=== PATIENT | male | born 1955 | race African-American/Black ===

== ENCOUNTER 2021-01-23 09:16 | Inpatient (IN) | payer OTHER, SELFPAY ==
[2021-01-23] VITALS (13 sets, daily range): BP systolic 153–214; BP diastolic 89–122; PULSE 83–108; RESP 17–21; TEMP 36.2–36.8; O2SAT 97–99; BMI 29.8
--- NOTE | ~2021-01-23 | XR_ITS ---
EXAMINATION: XR chest 1V portable DATE: 01/23/2021 09:58 INDICATION: One week of shortness of breath TECHNIQUE: frontal view of the chest was obtained. COMPARISON: None FINDINGS: Mild opacities at the bilateral lung bases. Blunting at the left costophrenic angle consistent with s mall left pleural effusion. No pneumothorax. The cardiomediastinal silhouette is normal. IMPRESSION: 1. Small left pleural effusion. 2. Mild bibasilar opacities which could represent atelectasis, mild pulmonary edema or pneumonia. Reviewed, dictated and finalized at location B. OR CONSULTING MANAGER IMPRESSION: 1. Small left pleural effusion. 2. Mild bibasilar opacities which could represent atelectasis, mild pulmonary e yaz or pneumonia.
--- NOTE | 2021-01-23 09:37 | ECG_ITS ---
Measurements Intervals [place] Rate: 94 P: 52 AK: 159 QRS: -14 QRSD: 96 T: 167 QT: 384 QTc: 481 Interpretive Statements SINUS RHYTHM POSSIBLE RIGHT ATRIAL ENLARGEMENT LEFT ATRIAL ENLARGEMENT LEFT VENTRICULAR HYPERTROPHY AND ST-T CHANGE T WAVE ABNORMALITY IN ANTEROLATERAL LEADS- CONSIDER ISCHEMIA ABNORMAL ECG Electronically Signed On 01-23-2021 10:12:02 [employer] OFFICER by Waqas Crowell D.O.
--- NOTE | 2021-01-23 09:38 | ED.SOB ---
HPI - SOB/Dyspnea General Chief Complaint: Shortness of Breath/Dyspnea Stated Complaint: sob, weakness Time Seen by Provider: 01/23/21 09:28 Source: patient Mode of arrival: ambulatory Limitations: no limitations History of Present Illness HPI Narrative: This is a 65 year old male with history of PUD, hypertension who presents for evaluation of shortness of breath. He noticed that he was having increased shortness of breath 1 week ago. He states it was harder for him to walk up his driveway. Today he states he developed sensation of anxiety so he came to ER . He denies headache, dizziness, chest pain, cough, fever, nausea, vomiting or diarrhea. He has not been evaluated by a provider in several years. He was diagnosed with hypertension several years ago, but he stopped taking medications . He states he felt fine so he did not think he needed to take the medication any more. Related Data Allergies Allergy/AdvReac Type Severity Reaction Status Date / Time No Known Allergies Allergy Verified 01/23/21 13:56 Review of Systems Review of Systems: All systems reviewed & are unremarkable except as noted in HPI and below Constitutional: Constitutional: Denies chills, Denies fever(s) and Reports weakness Cardiovascular: Cardiovascular: Denies chest pain and Denies radiating jaw, neck or arm pain Respiratory: Respiratory: Denies cough and Reports dyspnea Gastrointestinal: Gastrointestinal: Denies abdominal pain, Denies diarrhea, Denies nausea and Denies vomiting Musculoskeletal: Musculoskeletal: Denies back pain Psychiatric: Psychiatric: Reports anxiety [facility] Past Medical History Medical History (Updated 01/23/21 @ 18:36 by Eleanor Littlejohn MD) Finger amputation, no complication tip of left middle finger Hypertension PUD (peptic ulcer disease) Surgical History Surgical History (Updated 01/23/21 @ 17:43 by Shauna Llanes NP) History of tonsillectomy Family History Family History (Updated 01/23/21 @ 17:46 by Shauna Llanes NP) Father Congestive heart failure Hypertension Mother Hypertension Daughter Breast cancer Daughter Hodgkins disease Social History Social History (Updated 01/23/21 @ 17:49 by Shauna Llanes NP) Social History: the patient is now smoking a half a pack a cigarettes a day. He did quit for about 2 years. He works for [employer]. He is and lives with his . His is the durable power employment attorney for healthcare. The patient initially had 4 children 1 from SIDS and a daughter from breast cancer. Patient drinks about 2 beers a night After work and then on the weekends is usually little bit more. He does not use any marijuana or illicit drugs. The patient desires to be a full code. Smoking packs per day: 0.5 Smoking cigarettes per day: 10.0 Smoking status: Current every day smoker Alcohol intake: current Drinks per week: 12 Substance use: never Gender identity (if verbalized by the patient): Male Sexual Orientation (if Verbalized by the Patient): Straight or Heterosexual Spiritual care concerns: No Exam Const: General: no acute distress and alert Orientation/consciousness: patient oriented x3 HENMT: Head: normocephalic and atraumatic Face and sinus: normal facial exam, sinuses nontender and face symmetric Mouth: Yes Normal oral and palatal mucosa present, Yes lip normal, Yes oropharynx normal and Yes moist mucous membranes Throat: posterior oropharynx normal and tonsils normal Eyes: Pupils: Equal, round and reactive pupils present EOM: EOMs intact bilaterally Chest: Chest palpation & inspection: normal inspection of the chest Resp: Effort & Inspection: normal respiratory effort and no retractions Auscultation: clear to auscultation bilaterally Cardio: Rate: regular rate Rhythm: regular rhythm Heart sounds: no murmurs GI: GI Palp: Yes Soft to palpation, No Tenderness to palpation presen
[2021-01-23 09:52] LABS: Basophils Absolute Auto 0.1 K/mm3 (0.0-0.1); Basophils Percent Auto 0.5 % (0.2-1.2); Eosinophils Percent Auto 0.1 % (0-4.4); Hematocrit 44.9 % (42.0-52.0); Hemoglobin 15.7 g/dL (14.0-18.0); Immature Granulocyte Absolute 0.05 K/mm3 (0.00-0.031); Immature Granulocyte Percent A 0.5 % (0-0.5); Lymphocytes Percent Auto 12.7 % (18.3-44.2); Mean Corpuscular Hemoglobin 32.9 pg (26-34); Mean Corpuscular Volume 94.1 fl (80-100); Mean Platelet Volume 9.7 fl (7.4-10.4); Monocytes Absolute Auto 0.9 K/mm3 (0.1-0.6); Monocytes Percent Auto 8.9 % (2.6-8.5); Neutrophils Absolute Auto 7.9 K/mm3 (1.3-6.7); Neutrophils Percent Auto 77.3 % (45.5-73.1); Platelet Count Result 329 k/mm3 (150-375); Red Blood Count 4.77 M/mm3 (4.6-6.20); Red Cell Distribution Width 12.7 % (11.5-14.5); White Blood Count 10.2 K/mm3 (4.5-10.0)
[2021-01-23 10:03] LABS: INR 0.9; Prothrombin Time 12.8 Seconds (11.1-14.7)
[2021-01-23 10:04] LABS: Anion Gap 7 mmol/L (8-16); Blood Urea Nitrogen 17 mg/dL (9-20); Calcium 9.3 mg/dL (8.4-10.2); Carbon Dioxide 27 mmol/L (22-30); Chloride 106 mmol/L (98-107); Estimated CRCL calculation 83 ml/min; Estimated Glomerular Filt Rate > 60; Glucose 133 mg/dL (75-110); Potassium 3.9 mmol/L (3.4-5.0); Sodium 140 mmol/L (137-145)
[2021-01-23 10:16] LABS: NT Pro B Type Natriuretic Pept 1010 PG/ML (5-100); Troponin I 0.031 ng/mL (0.000-0.034)
[2021-01-23] MEDS: FUROSEMIDE INJ 40 MG/4 ML VIAL IV PUSH ×2 (10:33→20:54)
[2021-01-23] MEDS: hydrALAZINE HCL 20 MG/ML VIAL 10 MG IV PUSH ×2 (10:35→18:39)
[2021-01-23] MEDS: NITROGLYCERIN OINTMENT 1 INCH DOSE TRANSDERM ×2 (10:39→17:25)
[2021-01-23] MEDS: ENALAPRILAT 1.25 MG/ML VIAL IV PUSH (11:20)
--- NOTE | 2021-01-23 13:31 | PM.IMHP ---
H&P: HPI History of Present Illness Date/Time: 01/23/21 13:31 Narrative: Percy Kumar is a 65 year old male [facility] Past Medical History Medical History (Updated 01/23/21 @ 09:40 by Eleanor Littlejohn MD) Hypertension PUD (peptic ulcer disease) Social History Social History (Updated 01/23/21 @ 09:39 by Eleanor Littlejohn MD) Smoking packs per day: 0.5 Smoking cigarettes per day: 10.0 Smoking status: Current every day smoker Alcohol intake: current Substance use: never Gender identity (if verbalized by the patient): Male Sexual Orientation (if Verbalized by the Patient): Straight or Heterosexual Meds Home Medications and Allergies Allergies Allergy/AdvReac Type Severity Reaction Status Date / Time No Known Allergies Allergy Verified 06/05/15 10:10 Vital Signs Vital Signs - 24 hr 01/23/21 09:32 01/23/21 09:36 01/23/21 10:19 Temperature 98.2 F Pulse Rate 108 H 102 H 83 Respiratory Rate 18 19 Blood Pressure 214/122 H 186/118 H Pulse Oximetry 99 97 01/23/21 11:18 01/23/21 11:38 01/23/21 12:50 Temperature Pulse Rate 92 84 92 Respiratory Rate 18 17 18 Blood Pressure 195/108 H 163/94 H 159/105 H Pulse Oximetry 98 98 98 01/23/21 12:52 Temperature Pulse Rate 88 Respiratory Rate 19 Blood Pressure 159/105 H Pulse Oximetry 98 H&P: Results Labs Labs: Short CBC 01/23/21 Range/Units 09:42 WBC 10.2 H (4.5-10.0) K/mm3 Hgb 15.7 (14.0-18.0) g/dL Hct 44.9 (42.0-52.0) % Plt Count 329 (150-375) k/mm3 BMP 01/23/21 09:42 Sodium 140 Potassium 3.9 Chloride 106 Carbon Dioxide 27 BUN 17 Creatinine 0.90 Glucose 133 H Calcium 9.3 Cardiac Enzymes 01/23/21 Range/Units 09:42 Troponin I 0.031 (0.000-0.034) ng/mL
--- NOTE | 2021-01-23 13:55 | ADMGEN ---
This patient, Percy Kumar, was admitted to Medical Room 251-. Patient/family oriented to hospital policies and general routines including ID bracelet, bed and alarms, visiting hours, pain management, procedures, bathroom and other care routines, personal items, smoking policy, room service/diet, and visiting hours. Information on how to activate the Rapid Response Team has been discussed. Patient/Family are encouraged to report perceived risks to care and to ask questions if they do not understand what they are told or what they should do.
--- NOTE | 2021-01-23 17:26 | PM.IMHP ---
H&P: HPI History of Present Illness Date/Time: 01/23/21 17:26 Chief Complaint: Shortness of breath Narrative: Percy Kumar is a 65 year old male who stated that he used to take blood pressure medicine several years ago but then got off of it because he had lost weight was very active. The patient does not monitor his blood pressure nor does he take any blood pressure medications at this time. The patient stated that he has put on some weight since covid 19 pandemic. The patient stated he is not as active as when he typically would be prior to COVID-19. The patient stated that he has been very anxious about COVID-19. His has COPD and he has nervous about bringing COVID home to his . The patient still continues to smoke a half pack a cigarettes a day. He had quit for a couple years and then picked it back up. He has received smoking cessation information. The patient noticed that he has been getting more short of breath recently. He stated that the last few days he noticed that he was short of breath walking up the hill to get to his car. He also noticed that when he goes to work is a little more short of breath with activity. He stated that he was in a grocery store and became anxious and could not breathe and is mask. Otherwise he is able to lay flat. He does not have any history of any congestive heart failure. Chest x-ray was read as small left pleural effusion. Mild bibasilar opacities which could represent atelectasis, mild pulmonary edema or pneumonia. The patient was given IV Lasix and nitroglycerin patch in the emergency room. He was also given Apresoline and basal tech for his high blood pressure. His initial blood pressure was 214/122. It is now 157/98. An echo has been ordered for tomorrow. Patient is being admitted for observation status on the date of service of 01/23/2021 Review of Systems Review of Systems: All systems reviewed & are unremarkable except as noted in HPI and below Constitutional: Constitutional: Reports as per HPI and Reports no additional constitutional complaints Eyes: Eyes: Reports as per HPI and Reports no additional eye complaints ENT: Reports system reviewed and no additional complaints, except as documented and Reports Normal hearing present Cardiovascular: Cardiovascular: Reports no additional cardiovascular complaints Respiratory: Respiratory: Reports no additional respiratory complaints and Reports no additional respiratory complaints Gastrointestinal: Gastrointestinal: Reports as per HPI and Reports no additional gastrointestinal complaints Musculoskeletal: Musculoskeletal: Reports no additional musculoskeletal complaints Integumentary/Breasts: Skin/Breast: Reports system reviewed and no additional complaints, except as docu and Reports as per HPI Neurologic: Reports system reviewed and no additional complaints, except as documented, Reports as per HPI and Reports Normal hearing present Psychiatric: Psychiatric: Reports no additional psychiatric complaints and Reports as per HPI Endocrine: Endocrine: Reports no additional endocrine complaints Hematologic/Lymphatic: Hematologic/Lymphatic: Reports no additional hematologic/lymphatic complaints Allergic/Immunologic: Allergic/Immunologic: Reports no additional allergic/immunologic complaints [facility] Past Medical History Medical History (Updated 01/23/21 @ 17:56 by Shauna Llanes NP) Finger amputation, no complication tip of left middle finger Hypertension PUD (peptic ulcer disease) Surgical History Surgical History (Updated 01/23/21 @ 17:43 by Shauna Llanes NP) History of tonsillectomy Family History Family History (Updated 01/23/21 @ 17:46 by Shauna Llanes NP) Father Congestive heart failure Hypertension Mother Hypertension Daughter Breast cancer Daughter Hodgkins disease Social History Social History (Updated 01/23/21 @ 17:49 by Shauna Llanes NP) Social History: the patient
[2021-01-23] MEDS: ENOXAPARIN 40 MG/0.4 ML SYRINGE SUB-Q (20:54)
[2021-01-24] VITALS (11 sets, daily range): BP systolic 126–134; BP diastolic 81–99; PULSE 78–103; RESP 20–21; TEMP 36.4–36.9; O2SAT 99–100
[2021-01-24] MEDS: NITROGLYCERIN OINTMENT 1 INCH DOSE TRANSDERM ×5 (00:18→23:38)
[2021-01-24 05:51] LABS: Basophils Percent Auto 0.5 % (0.2-1.2); Eosinophils Absolute Auto 0.1 K/mm3 (0-0.3); Hematocrit 44.1 % (42.0-52.0); Immature Granulocyte Absolute 0.04 K/mm3 (0.00-0.031); Immature Granulocyte Percent A 0.5 % (0-0.5); Lymphocytes Absolute Auto 1.87 K/mm3 (0.9-3.2); Lymphocytes Percent Auto 21.4 % (18.3-44.2); Mean Corpuscular Hemoglobin 32.5 pg (26-34); Mean Corpuscular Volume 95.5 fl (80-100); Mean Platelet Volume 9.8 fl (7.4-10.4); Monocytes Absolute Auto 1.2 K/mm3 (0.1-0.6); Monocytes Percent Auto 14.1 % (2.6-8.5); Neutrophils Absolute Auto 5.5 K/mm3 (1.3-6.7); Neutrophils Percent Auto 62.5 % (45.5-73.1); Platelet Count Result 310 k/mm3 (150-375); Red Blood Count 4.62 M/mm3 (4.6-6.20); Red Cell Distribution Width 12.9 % (11.5-14.5); White Blood Count 8.8 K/mm3 (4.5-10.0)
--- NOTE | 2021-01-24 06:00 | ECHO_ITS ---
Patient Info Name: Percy Kumar Age: 65 years : 1955 Gender: Male Ht: 73 in Wt: 226 lbs BSA: 2.32 m2 HR: 80 bpm BP: 163 / 89 mmHg Technical Quality: Good Exam Date: 01/24/2021 1:50 PM Exam Location: [facility] Patient Status: Outpatient Admit Date: 01/23/2021 Staff Ordering Physician: Eleanor Littlejohn MD Information Resources Director: Amna Kidd RDCS Attending Provider: Yeni Glaser PA-C Referring Physician: Annetta KNIGHT; Exam Type: CA echo doppler color flow Study Info Indications - chf steel Complete two-dimensional, color flow and Doppler transthoracic echocardiogram is performed. Summary 1. Complete two-dimensional, color flow and Doppler transthoracic echocardiogram is performed. 2. Left ventricular chamber dimension is moderately enlarged. 3. Left ventricular systolic function is moderately reduced, estimated at 35-40%. 4. There is moderately increased left ventricular wall thickness. 5. The left ventricular diastolic function is grade I diastolic dysfunction. 6. E/e' 19 is elevated. 7. Global longitudinal strain is abnormal at -9.4%. 8. Left atrial chamber dimension is moderately enlarged. 9. There is mild aortic valve sclerosis. 10. No pulmonary hypertension, estimated pulmonary arterial systolic pressure is 23 mmHg. 11. There is trace pulmonic regurgitation. Left Ventricle E/e' 19 is elevated. Global longitudinal strain is abnormal at -9.4%. Left ventricular chamber dimension is moderately enlarged. Left ventricular systolic function is moderately reduced, estimated at 35-40%. There is moderately increased left ventricular wall thickness. The left ventricular diastolic function is grade I diastolic dysfunction. Right Ventricle Right ventricular chamber dimension is normal. Right ventricular systolic function is normal. Left Atria Left atrial chamber dimension is moderately enlarged. Right Atria Right atrial chamber dimension is normal. Aortic Valve The aortic valve is trileaflet. There is mild aortic valve sclerosis. There is no aortic valve stenosis. There is no aortic valve regurgitation. Pulmonic Valve There is trace pulmonic regurgitation. Mitral Valve There is no mitral valve stenosis. There is no mitral valve regurgitation. Tricuspid Valve There is no tricuspid valve regurgitation. No pulmonary hypertension, estimated pulmonary arterial systolic pressure is 23 mmHg. Pericardium/Pleural There is no pericardial effusion. Inferior Vena Cava Normal inferior vena cava with >50% collapse upon inspiration consistent with normal right atrial pressure, 5 mmHg. Aorta The aortic root size at the sinus of Valsalva is normal. Left Ventricular Outflow Tract Name Value Normal LVOT 2D LVOT Diameter 2.2 cm LVOT Doppler LVOT Peak Gradient 5 mmHg LVOT Mean Gradient 3 mmHg LVOT VTI 19 cm LVOT VTI/AV VTI Ratio 0.8 LVOT Stroke Volume 70 ml LVOT CO 17.7 l/min
[2021-01-24 06:04] LABS: Alanine Aminotransferase 17 U/L (4-50); Alkaline Phosphatase 45 U/L (38-126); Anion Gap 5 mmol/L (8-16); Aspartate Amino Transferase 22 U/L (17-59); Bilirubin,Total 1.6 mg/dL (0.2-1.3); Blood Urea Nitrogen 18 mg/dL (9-20); Calcium 8.6 mg/dL (8.4-10.2); Carbon Dioxide 31 mmol/L (22-30); Chloride 101 mmol/L (98-107); Cholesterol 199 mg/dL (0-200); Estimated CRCL calculation 64 ml/min; Estimated Glomerular Filt Rate > 60; Glucose 133 mg/dL (75-110); HDL Direct 62 mg/dL; Magnesium 2.1 mg/dL (1.6-2.3); Potassium 3.9 mmol/L (3.4-5.0); Sodium 137 mmol/L (137-145); Triglycerides 84 mg/dL (<150)
[2021-01-24 06:15] LABS: LDL Cholesterol Direct 100 mg/dL
[2021-01-24] MEDS: LOSARTAN POTASSIUM 25 MG TABLET PO (08:23)
[2021-01-24] MEDS: FUROSEMIDE INJ 40 MG/4 ML VIAL IV PUSH ×2 (08:23→20:03)
--- NOTE | 2021-01-24 12:53 | PM.IMPN ---
Progress Note: A&P Assessment and Plan (1) Abnormal EKG: Code(s): R94.31 - Abnormal electrocardiogram [ECG] [EKG] Status: Acute Assessment and Plan: Patient's troponin was normal on arrival at 0.031. There were no repeat troponins at 3 or 6 hours. He does have EKG changes on arrival with a heart rate of 94 beats per minute, sinus rhythm, possible right and left atrial large min, LV hypertrophy and some ST T-wave changes in anterior lateral leads. Telemetry shows a normal sinus rhythm, no alarms noted, there is widening of the QRS. Will order a troponin at this time Will consult cardiology for further evaluation and workup. Concerns a has not seen a doctor in years is not on any medications. He states his dad had coronary artery disease the past. He has also been given nitro paste from the emergency room. Continue monitoring. Denies any chest pain at this time. (2) Pulmonary edema: Code(s): J81.1 - Chronic pulmonary edema Status: Acute Assessment and Plan: Patient came in with worsening dyspnea on exertion with walking up a hill as well as orthopnea. Chest x-ray shows some pulmonary edema. His BNP was elevated at 1010. He was started on IV Lasix with improvement of his symptoms today. Echocardiogram has been ordered and is pending Will continue monitoring volume status, electrolytes, renal function with diuresis. (3) Hypertension: Code(s): I10 - Essential (primary) hypertension Status: Chronic Assessment and Plan: Patient's blood pressure was elevated on arrival he was started on losartan. Blood pressure this morning was 126/86. Continue with some diuresis, Patient has p.r.n. hydralazine. Continue monitoring. Make adjustments as needed. Cardiology's recommendations are greatly appreciated. (4) Anxiety: Code(s): F41.9 - Anxiety disorder, unspecified Status: Acute Assessment and Plan: Appears comfortable at this time. P.rdoron Mims. Time Spent With Patient Time with patient: 25 - 35 minutes Subjective Date/time seen: 01/24/21 12:53 Interval history: Date of service 01/24/2021: Patient is a 65-year-old man who is not on any medications chronically, and he was not seen a primary care provider in years. A few weeks ago he noticed worsening dyspnea on exertion with walking up a hill to get to his car and laying flat in bed. He denies any chest pain associated. He is feeling better today after receiving IV Lasix. He denies any shortness of breath with walking around his room today. He does not believe he has had COVID-19 or any recent viral illnesses. He is smoker of about half a pack a day or less. He denies any chest pain, shortness of breath, cough, fevers, chills, nausea, vomiting, abdominal pain, leg swelling, calf pain, or any other symptoms at this time. Review of Systems Review of Systems: All systems reviewed & are unremarkable except as noted in HPI and below Exam Narrative: Exam Narrative: General: 65-year-old man sitting up in bed, talking on the phone. Appears comfortable. In no acute distress. Skin: No jaundice or cyanosis. Good skin turgor. Neck: Full range of motion. Supple. Respiratory: Lungs are clear to auscultation bilaterally, no wheezing, rales or rhonchi. No bony chest wall tenderness. Cardiovascular: The heart has a regular rate and rhythm without murmur. Telemetry shows normal sinus rhythm with a heart rate of 70 beats per minute. There is QRS widening noted. No alarms noted. Lower extremities: No lower extremity edema. Distal pulses are easily palpated. No calf tenderness to palpation. Gastrointestinal: The abdomen is soft, nontender and nondistended with active bowel sounds. Psychiatric: Lucid and oriented. Memory
--- NOTE | 2021-01-24 14:55 | PM.CNCAR ---
Assessment and Plan Assessment and plan (1) Acute combined systolic and diastolic CHF, NYHA class 1: Code(s): I50.41 - Acute combined systolic (congestive) and diastolic (congestive) heart failure Status: Acute Assessment and Plan: Acute systolic and diastolic CHF with cardiomyopathy, EF 35-40%, secondary to uncontrolled and longstanding hypertension. Continue losartan, add metoprolol succinate (try to keep meds once daily for compliance). Outpatient stress test to rule out underlying CAD which is not likely. (2) Hypertensive urgency: Code(s): I16.0 - Hypertensive urgency Status: Acute Assessment and Plan: Educated the patient is about hypertension, longstanding affects on organs, congestive heart failure, low sodium and heart healthy diet, medication management, etc.. Likely the patient will need combination therapy such as losartan /HCT 50/25 mg and metoprolol succinate Hopefully he will be in shape for discharge tomorrow. (3) Abnormal EKG: Code(s): R94.31 - Abnormal electrocardiogram [ECG] [EKG] Status: Acute Assessment and Plan: EKG shows changes with LVH and lateral T-wave inversion. I think these changes are most likely all due to hypertension and not CAD or ACS. However because of his left ventricular dysfunction he would benefit from ischemia evaluation as an outpatient. (4) Elevated troponin: Code(s): R77.8 - Other specified abnormalities of plasma proteins Status: Acute Assessment and Plan: Very mildly elevated troponin secondary to uncontrolled hypertension and CHF. No evidence of acute coronary syndrome. Will discontinue nitro paste and metoprolol succinate. History of Present Illness History of Present Illness Consult date/time: 01/24/21 14:55 Consult reason: hypertension and shortness of breath Reason For Visit: CHF, malignant hypertension Narrative: Date of service 01/24/2021 Percy Sutherland is a 65-year-old male with untreated hypertension whom I was asked to see at the request of hospitalist for my advice and opinion regarding shortness of breath, elevated troponins, hypertension and CHF in consultation. Mr. Schumacher has been experiencing BAINS for the last two weeks, has developed some orthopnea. Last night when he was feeling his worst he had some tightness in his chest and could not get comfortable. in the emergency room his blood pressure was 214/122 mm Hg and BNP was 1000. Troponin was 0.03. He was diagnosed with hypertension several years ago postop taking his medication as he felt fine. He said he was stubborn. In the emergency room his given furosemide IV push, hydralazine 10 mg IV push, enalaprat 1.25 mg IV push and started on nitropaste. Losartan has been added and now his blood pressure has improved. He is feeling better, with no shortness of breath getting up in his room. No history of diabetes, hyperlipidemia, heart disease, kidney disease or stroke. No edema. Review of Systems Constitutional: Constitutional: Reports lethargy Eyes: Eyes: Reports no additional eye complaints ENT: Reports nasal congestion Comments: Patient -leaflet his shortness of breath his sinus problems. Cardiovascular: Cardiovascular: Reports chest pain, Denies pedal edema and Denies leg edema Respiratory: Respiratory: Reports dyspnea and Reports dyspnea on exertion Comments: Orthopnea Gastrointestinal: Gastrointestinal: Denies abdominal pain, Denies melena and Denies hematochezi
[2021-01-24] MEDS: FLUTICASONE PROPIONATE 0.05% NA SPR 16 GM BTL (*BKC) 1 SPRAY NASAL (20:03)
[2021-01-24] MEDS: ENOXAPARIN 40 MG/0.4 ML SYRINGE SUB-Q (20:03)
[2021-01-25] VITALS (8 sets, daily range): BP systolic 128–130; BP diastolic 75–83; PULSE 78–92; RESP 18–20; TEMP 36.2–36.8; O2SAT 98–100
[2021-01-25] MEDS: NITROGLYCERIN OINTMENT 1 INCH DOSE TRANSDERM (06:05)
[2021-01-25] MEDS: METOPROLOL SUCCINATE EXT REL 25 MG TABCR PO (08:54)
[2021-01-25] MEDS: FLUTICASONE PROPIONATE 0.05% NA SPR 16 GM BTL (*BKC) 1 SPRAY NASAL (08:54)
[2021-01-25] MEDS: FUROSEMIDE INJ 40 MG/4 ML VIAL IV PUSH (08:54)
[2021-01-25] MEDS: LOSARTAN POTASSIUM 25 MG TABLET PO (08:54)
[2021-01-25 10:14] LABS: Anion Gap 7 mmol/L (8-16); Blood Urea Nitrogen 23 mg/dL (9-20); Carbon Dioxide 29 mmol/L (22-30); Chloride 101 mmol/L (98-107); Estimated CRCL calculation 75 ml/min; Estimated Glomerular Filt Rate > 60; Glucose 108 mg/dL (75-110); Magnesium 2.2 mg/dL (1.6-2.3); Sodium 137 mmol/L (137-145)
--- NOTE | 2021-01-25 15:43 | PM.PNCARD ---
Progress Note: A&P Assessment and Plan (1) Acute combined systolic and diastolic CHF, NYHA class 1: Code(s): I50.41 - Acute combined systolic (congestive) and diastolic (congestive) heart failure Status: Acute Assessment and Plan: New onset of systolic and diastolic heart failure due to uncontrolled hypertension. Significant improvement overnight with diuresis and better blood pressure control. Reviewed effects of hypertension on our heart and our bodies. Discussed blood pressure control, medications, low salt heart healthy diet cetera. Okay for discharge. Recommend another week of Lasix since he still has some volume overload, but in the long run hopefully losartan HCT and metoprolol succinate will be adequate. Discussed w/ PA Yoel Glaser. Recommend outpatient follow-up for CHF and cardiomyopathy which my office will provide. Follow-up with Dr. López as well. (2) Hypertensive urgency: Code(s): I16.0 - Hypertensive urgency Status: Acute Assessment and Plan: Patient's blood pressure has not been treated for years and was very high on admission. Significant improvement overnight on fairly mild therapy. (3) Cardiomyopathy: Code(s): I42.9 - Cardiomyopathy, unspecified Status: Acute Assessment and Plan: Found have a cardiomyopathy with EF of 35-40%, probably due to hypertension, but rule out underlying CAD. My office will schedule a Lexiscan stress test as an outpatient. (4) Elevated troponin: Code(s): R77.8 - Other specified abnormalities of plasma proteins Status: Acute Assessment and Plan: Very minimally elevated troponin, secondary to hypertension and heart failure. Subjective Date/time seen: 01/25/21 15:43 Interval history: Follow-up for hypertension and new onset of heart failure. Date of service 01/24/2021: Patient diuresed overnight and is feeling much better. No PND orthopnea. No BAINS when up and about in his room. Blood pressure is much better as well. Echo as below, showed a cardiomyopathy EF 35-40%. Review of Systems Constitutional: Constitutional: Denies fatigue and Denies weakness ENT: Denies epistaxis Cardiovascular: Cardiovascular: Denies chest pain, Denies pedal edema, Denies leg edema and Denies lightheadedness Respiratory: Respiratory: Denies cough, Denies dyspnea and Denies dyspnea on exertion Gastrointestinal: Gastrointestinal: Denies abdominal pain Genitourinary: Genitourinary: Denies hematuria Musculoskeletal: Musculoskeletal: Reports no additional musculoskeletal complaints Integumentary/Breasts: Skin/Breast: Denies rash Neurologic: Denies Abnormal speech present and Denies confusion Psychiatric: Psychiatric: Reports no additional psychiatric complaints Exam Narrative: Exam Narrative: Up in chair, at the bedside, no distress Const: General: no acute distress HENMT: General nose exam: no epistaxis Mouth: Yes moist mucous membranes Eyes: EOM: EOMs intact bilaterally Neck: Neck: supple Resp: Effort & Inspection: normal respiratory effort Auscultation: rales (Rales in lower both lung del real) Cardio: Rate: regular rate Rhythm: regular rhythm Heart sounds: no gallops and no murmurs GI: GI Palp: Yes Soft to palpation Neuro: Cognition (Neuro): normal cognition Speech: normal speech Motor exam (neuro): Normal motor muscle tone present throughout Extrem: General: no edema Psych: Mental Status: mental status grossly normal Affect: normal affect Objective Data Vital Signs Vital Signs: Vital Signs - 24 hr 01/24/21 16:00 01/24/21 17:10 01/24/21 18:03 Temperature 98.4 F Pulse Rate 84 83 Respiratory Rate 21 H Blood Pressure 129/99 H 130/82 Pulse Oximetry 100 01/24/21 20:00 01/24/21 21:54 01/24/21 22:00 Temperature 97.5 F L Pulse Rate 81
--- NOTE | 2021-01-25 16:15 | PM.DS ---
DS: Admitting Diagnosis Admitting Diagnosis Admitting Diagnosis: SOB DS: Discharge Diagnosis Discharge Diagnosis (1) Acute combined systolic and diastolic CHF, NYHA class 1: Code(s): I50.41 - Acute combined systolic (congestive) and diastolic (congestive) heart failure Status: Acute (2) Cardiomyopathy: Code(s): I42.9 - Cardiomyopathy, unspecified Status: Acute (3) Hypertensive urgency: Code(s): I16.0 - Hypertensive urgency Status: Acute (4) Abnormal EKG: Code(s): R94.31 - Abnormal electrocardiogram [ECG] [EKG] Status: Acute (5) Anxiety: Code(s): F41.9 - Anxiety disorder, unspecified Status: Acute DS: Summary Hospital Course Reason for hospitalization: 65-year-old man with no chronic medical history and is not on any chronic medications because he has not seen a doctor in years, who presented to the emergency department with increased shortness of breath. Patient reports he would have shortness of breath with walking up hill and orthopnea which is been going on the last few weeks. Initial vitals showed afebrile, tachycardic heart rate, normal respiratory rate, elevated blood pressure at 214/122, normal oxygen saturation 99% on room air. Initial labs showed slight leukocytosis, normal coag panel, normal BMP other than slight elevation of glucose at 133, BNP was 1010, troponin was 0.031 which is normal and repeat troponin was less, normal TSH, chest x-ray showed small left pleural effusion and mild pulmonary edema. Patient was admitted into the hospital And started on IV Lasix. Echocardiogram was completed showing systolic dysfunction with an EF of 35-40%, moderately enlarged LV chamber and LVH. Mild . Cardiology was consulted on the case and started him on a beta-denise, ARB. Cardiology believes he did not have signs of acute ACS and recommended following up as an outpatient with a stress test. Fasting lipid panel was ordered showing LDL at 100, otherwise normal lipids. Since he still had some signs of fluid overload he was started on Lasix 20 mg daily. He will follow-up with his 's primary care provider at discharge. Patient otherwise feels well at this time and stable for discharge. Hospital Course: See above Status at Discharge Cognitive/behavioral status at discharge: Stable, improved. Time Spent with Patient Time attestation: Total time spent providing and/or coordinating discharge services: 43 Time spent: Greater than 30 minutes Exam Narrative: Exam Narrative: General: 65-year-old man sitting up in the chair talking to his . Appears comfortable. In no acute distress. Skin: No jaundice or cyanosis. Good skin turgor. Neck: Full range of motion. Supple. Respiratory: Lungs are clear to auscultation bilaterally, no wheezing, rales or rhonchi. No bony chest wall tenderness. Cardiovascular: The heart has a regular rate and rhythm without murmur. Telemetry shows normal sinus rhythm with a heart rate of 83 beats per minute. There is QRS widening noted. No alarms noted. Lower extremities: No lower extremity edema. Distal pulses are easily palpated. No calf tenderness to palpation. Gastrointestinal: The abdomen is soft, nontender and nondistended with active bowel sounds. Psychiatric: Lucid and oriented. Memory intact. Neurologic: No focal deficits. Speech is clear. No facial drooping. DS: Data Data Completed and Pending Labs on day of discharge: Labs from last 24 hours 01/25/21 09:33 Sodium 137 Potassium 4.0 Chloride 101 Carbon Dioxide 29 Anion Gap 7 L BUN 23 H Creatinine 1.00 Estim Creat Clear Calc 75 Estimated GFR > 60 Glucose 108 Calcium 9.0 Magnesium 2.2 Discharge Plan Discharge Attending physician on discharge: Shirley Argueta Consulting providers: Arabella Alaniz Discharging Clinician: Yeni Glaser Anticipated Discharge Date/Time: 01/25
== END 2021-01-25 16:50 | disposition home or self-care (01) | DRG 304 ==
LOC: ANHED 10:56 → ANH2MED 11:56
PROVIDERS: Nurse Practitioner; Physician Assistant; Admitting Provider Family Medicine; Emergency Provider General Practice; PCP Internal Medicine; Visit Provider Family Medicine
DX: I16.0 Hypertensive urgency (principal); I50.41 Acute combined systolic (congestive) and diastolic (congestive) heart failure; I42.9 Cardiomyopathy, unspecified; I11.0 Hypertensive heart disease with heart failure; R94.31 Abnormal electrocardiogram [ECG] [EKG]; R77.8 Other specified abnormalities of plasma proteins; F41.9 Anxiety disorder, unspecified; F17.210 Nicotine dependence, cigarettes, uncomplicated; Z87.11 Personal history of peptic ulcer disease
CPT/HCPCS: 36415; 71045; 80048; 80053; 80061; 83735; 83880; 84443; 84484; 85025; 85610; 85730; 93005; 93306; 96372; 96374; 96375; 96376; 99291; A9270; G0378; J0360; J1650; J1940

== ENCOUNTER 2021-01-26 21:06 | Emergency (ER) | payer OTHER, SELFPAY ==
[2021-01-26 21:27] VITALS: BP 165/121; PULSE 105; RESP 22; TEMP 36.3; O2SAT 99
[2021-01-27 01:13] VITALS: BP 209/148; PULSE 76; RESP 16; O2SAT 100
--- NOTE | 2021-01-27 01:31 | ED.GENADULT ---
HPI - General Adult General Chief complaint: Unspecified Stated complaint: high blood pressure Time Seen by Provider: 01/27/21 00:17 History of Present Illness HPI narrative: Patient is a 65-year-old male who presents ER with concerns of hypertension. Recently hospitalized for heart failure and uncontrolled hypertension. He has been started on losartan, furosemide, and metoprolol. He was just released and took his first doses today. He reports he is supposed to take his blood pressure 3 times but took it 6 times. His blood pressures been running in the 160s and 170s systolic. His diastolic continues to remain above 100 mmHg. He is having no chest pain or shortness of breath or headache with visual changes. Reports he got anxious and came to the ER to make sure there is nothing more seriously wrong. Related Data Allergies Allergy/AdvReac Type Severity Reaction Status Date / Time No Known Allergies Allergy Verified 01/23/21 13:56 Review of Systems Cardiovascular: Cardiovascular: Denies chest pain, Denies rapid heart rate and Denies dyspnea on exertion Respiratory: Respiratory: Denies cough and Denies dyspnea Neurologic: Denies headache(s) [facility] Past Medical History Medical History (Updated 01/27/21 @ 01:40 by Mj Marx MD) Cardiomyopathy Finger amputation, no complication tip of left middle finger Hypertension PUD (peptic ulcer disease) Surgical History Surgical History History of tonsillectomy Family History Family History (Updated 01/24/21 @ 16:18 by Arabella Alaniz MD) Father Congestive heart failure Hypertension Mother Hypertension Heart disease Daughter Breast cancer Daughter Hodgkins disease Social History Social History (Updated 01/23/21 @ 17:49 by Shauna Llanes NP) Social History: the patient is now smoking a half a pack a cigarettes a day. He did quit for about 2 years. He works for [employer]. He is and lives with his . His is the durable power county attorney for healthcare. The patient initially had 4 children 1 from SIDS and a daughter from breast cancer. Patient drinks about 2 beers a night After work and then on the weekends is usually little bit more. He does not use any marijuana or illicit drugs. The patient desires to be a full code. Smoking packs per day: 0.5 Smoking cigarettes per day: 10.0 Smoking status: Current every day smoker Alcohol intake: current Drinks per week: 12 Substance use: never Gender identity (if verbalized by the patient): Male Spiritual care concerns: No Exam Narrative: Exam Narrative: GENERAL: Well-appearing, well-nourished, and in no acute distress. HEAD: Normocephalic, atraumatic. CHEST: Clear to auscultation. No respiratory distress. HEART: Regular rate and rhythm. Normal peripheral pulses EXTREMITIES: Normal range of motion. No edema. NEURO: Alert and oriented x3. PSYCH: Normal mood and affect. Course Course Emergency Course: Gave patient reassurance regarding blood pressure. It is come down nicely on its own. Patient verbalized understanding. Vital Signs Vital signs: Vital Signs Temperature 97.3 F L 01/26/21 21:27 Pulse Rate 105 H 01/26/21 21:27 Respiratory Rate 22 H 01/26/21 21:27 Blood Pressure 165/121 H 01/26/21 21:27 Pulse Oximetry 99 01/26/21 21:27 Temperature 97.3 F L 01/26/21 21:27 Pulse Rate 72 01/27/21 01:32 Respiratory Rate 16 01/27/21 01:32 Blood Pressure 154/111 H 01/27/21 01:32 Pulse Oximetry 99 01/27/21 01:32 Medical Decision Making Vital Signs Vital Signs: Vital Signs Temperature 97.3 F L 01/26/21 21:27 Pulse Rate 105 H 01/26/21 21:27 Respiratory Rate 22 H 01/26/21 21:27 Blood Pressure 165/121 H 01/26/21 21:27 Pulse Oximetry 99 01/26/21 21:27 Temperature 97.3 F L 01/26/21 21:27 Pulse Rate 72 01/27/21 01:32 Respiratory Rate 1
[2021-01-27 01:32] VITALS: BP 154/111; PULSE 72; RESP 16; O2SAT 99
== END 2021-01-27 01:43 | disposition home or self-care (01) ==
PROVIDERS: Emergency Provider Emergency Medicine; PCP Internal Medicine
DX: I10 Essential (primary) hypertension (principal); I42.9 Cardiomyopathy, unspecified; Z87.11 Personal history of peptic ulcer disease; F17.210 Nicotine dependence, cigarettes, uncomplicated
CPT/HCPCS: 99281

== ENCOUNTER 2021-02-09 12:22 | Outpatient (CLI) | payer OTHER, SELFPAY ==
[2021-02-09 12:46] LABS: Add Urine Microscopic? NO; Appearance Urine Clear (Clear); Bilirubin Urine Negative (Negative); Blood Urine Negative (Negative); Color Urine Yellow (Yellow); Glucose Urine UA Negative (Negative); Ketones Urine Negative (Negative); Leukocyte Esterase Ur Negative LEU/UL (NEGATIVE); Nitrate Urine Negative (Negative); Protein Urine Negative (Negative); Specific Grav Ur 1.013 (1.001-1.035); Urobilinogen Urine Negative mg/dL (<2.0)
[2021-02-09 13:01] LABS: Anion Gap 5 mmol/L (8-16); Blood Urea Nitrogen 16 mg/dL (9-20); Calcium 9.4 mg/dL (8.4-10.2); Carbon Dioxide 31 mmol/L (22-30); Chloride 103 mmol/L (98-107); Estimated Glomerular Filt Rate > 60; Glucose 113 mg/dL (75-110); Potassium 4.1 mmol/L (3.4-5.0); Sodium 139 mmol/L (137-145)
== END 2021-02-09 12:23 | disposition home or self-care (01) ==
PROVIDERS: PCP Internal Medicine; Visit Provider Internal Medicine
DX: I50.41 Acute combined systolic (congestive) and diastolic (congestive) heart failure (principal); I10 Essential (primary) hypertension
CPT/HCPCS: 36415; 80048; 81003

== ENCOUNTER 2021-02-16 13:17 | Outpatient (CLI) | payer OTHER, SELFPAY ==
[2021-02-16 13:58] LABS: Anion Gap 8 mmol/L (8-16); Blood Urea Nitrogen 17 mg/dL (9-20); Calcium 9.7 mg/dL (8.4-10.2); Carbon Dioxide 29 mmol/L (22-30); Chloride 102 mmol/L (98-107); Estimated Glomerular Filt Rate > 60; Glucose 110 mg/dL (75-110); Potassium 4.2 mmol/L (3.4-5.0); Sodium 139 mmol/L (137-145)
== END 2021-02-16 13:18 | disposition home or self-care (01) ==
LOC: ANHLAB 13:19
PROVIDERS: PCP Internal Medicine; Visit Provider Nurse Practitioner Adult Health
DX: I11.0 Hypertensive heart disease with heart failure (principal); I50.22 Chronic systolic (congestive) heart failure
CPT/HCPCS: 36415; 80048

== ENCOUNTER 2021-03-08 06:57 | Outpatient (CLI) | payer OTHER, SELFPAY ==
--- NOTE | ~2021-03-08 | US_ITS ---
EXAMINATION: US renal BI, US retroperitoneal duplex ltd DATE: 03/08/2021 07:59 INDICATION: Essential hypertension TECHNIQUE: Multiple grayscale and Doppler ultrasound images of the kidneys were obtained. COMPARISON: None. FINDINGS: The right kidney measures 10.8 x 5.6 x 4.6 cm. The left kidney measures 12.7 x 5.9 x 7.1 cm . The kidneys demonstrate normal parenchymal echogenicity. There is no hydronephrosis. The bladder is normal. The aorta peak systolic velocity is 116 cm/s. The right renal artery peak systolic velocity is 79 cm/ s in the proximal segment, 48 cm/s in the mid segment, and 48 cm/s in the distal segment. The left re nal artery peak systolic velocity is 102 cm/s in the proximal segment, 95 cm/s in the mid segment, an d 68 cm/s in the distal segment. IMPRESSION: 1. Normal kidneys without hydronephrosis. 2. No Doppler evidence of renal artery stenosis. Reviewed, dictated and finalized at location B. IMPRESSION: 1. Normal kidneys without hydronephrosis. 2. No Doppler evidence of renal artery stenosis.
== END 2021-03-08 06:58 | disposition home or self-care (01) ==
PROVIDERS: PCP Internal Medicine; Visit Provider Internal Medicine
DX: I10 Essential (primary) hypertension (principal)
CPT/HCPCS: 76775; 93976

== ENCOUNTER → 2021-05-28 00:08 | Outpatient (CLI) | payer OTHER, SELFPAY ==
[2021-05-28 15:57] LABS: SARS-CoV-2 RNA PCR Negative
== END ==
PROVIDERS: PCP Internal Medicine; Visit Provider Internal Medicine Cardiovascular Disease
DX: Z01.812 Encounter for preprocedural laboratory examination (principal); Z20.822 Contact with and (suspected) exposure to COVID-19
CPT/HCPCS: C9803; U0003; U0005

== ENCOUNTER 2021-05-31 00:16 | Day surgery (SDC) | payer OTHER, SELFPAY ==
[2021-05-30 16:00] VITALS: BMI 29.8
[2021-05-31] VITALS (9 sets, daily range): BP systolic 117–143; BP diastolic 78–96; PULSE 64–76; RESP 12–20; TEMP 36.1–36.3; O2SAT 98–100; BMI 28.3
[2021-05-31 07:50] LABS: Basophils Absolute Auto 0.1 K/mm3 (0.0-0.1); Basophils Percent Auto 0.7 % (0.2-1.2); Eosinophils Absolute Auto 0.1 K/mm3 (0-0.3); Eosinophils Percent Auto 0.9 % (0-4.4); Hematocrit 39.4 % (42.0-52.0); Hemoglobin 13.2 g/dL (14.0-18.0); Immature Granulocyte Absolute 0.05 K/mm3 (0.00-0.031); Immature Granulocyte Percent A 0.5 % (0-0.5); Lymphocytes Percent Auto 14.9 % (18.3-44.2); Mean Corpuscular HGB Conc 33.5 g/dl (32-36); Mean Corpuscular Hemoglobin 31.3 pg (26-34); Mean Corpuscular Volume 93.4 fl (80-100); Mean Platelet Volume 8.3 fl (7.4-10.4); Monocytes Percent Auto 8.9 % (2.6-8.5); Neutrophils Percent Auto 74.1 % (45.5-73.1); Platelet Count Result 536 k/mm3 (150-375); Red Blood Count 4.22 M/mm3 (4.6-6.20); Red Cell Distribution Width 11.6 % (11.5-14.5); White Blood Count 10.7 K/mm3 (4.5-10.0)
[2021-05-31 08:04] LABS: Alanine Aminotransferase 70 U/L (4-50); Albumin Level 4.4 g/dL (3.5-5.1); Alkaline Phosphatase 89 U/L (38-126); Anion Gap 11 mmol/L (8-16); Aspartate Amino Transferase 35 U/L (17-59); Blood Urea Nitrogen 14 mg/dL (9-20); Carbon Dioxide 26 mmol/L (22-30); Chloride 100 mmol/L (98-107); Cholesterol 141 mg/dL (0-200); Estimated CRCL calculation 93 ml/min; Estimated Glomerular Filt Rate > 60; Glucose 152 mg/dL (75-110); HDL Direct 35 mg/dL; Potassium 4.2 mmol/L (3.4-5.0); Sodium 137 mmol/L (137-145); Triglycerides 73 mg/dL (<150)
[2021-05-31 08:14] LABS: LDL Cholesterol Direct 63 mg/dL
--- NOTE | 2021-05-31 08:46 | WPDHPUPDATE1 ---
History and Physical Update Update Date/Time: 05/31/21 08:46 Patient with a cardiomyopathy presumed nonischemic. However his stress test showed a large fixed inferior inferolateral defect consistent with a prior [place]. Echo also showed worse hypokinesis in the segments. He had noted some high pressure ndigestion is upper chest with exertion in the past although nothing recently. He is here for definitive evaluation of possible CAD. History and Physical has been reviewed, including an updated exam of the patient. There are NO changes in the patient's condition. Risks, benefits, and alternatives have been discussed and questions answered. Patient agrees to proceed with procedure.
--- NOTE | 2021-05-31 08:47 | WPDMODSED ---
Moderate Sedation Note-Pt Data Patient Data Diagnosis: Cardiomyopathy with abnormal stress test Present Complaint: Patient with a cardiomyopathy presumed nonischemic. However his stress test showed a large fixed inferior inferolateral defect consistent with a prior [place]. Echo also showed worse hypokinesis in the segments. He had noted some high pressure ndigestion is upper chest with exertion in the past although nothing recently. He is here for definitive evaluation of possible CAD. Procedure to be performed/Plan: conscious sedation Left heart catheterization Possible PCI Allergies Allergy/AdvReac Type Severity Reaction Status Date / Time No Known Allergies Allergy Verified 05/31/21 07:47 Home Medications Medication Instructions Recorded Confirmed Type furosemide [Lasix] 20 mg PO DAILY #30 tablet 01/25/21 05/30/21 Rx losartan 100 mg tablet 100 mg PO QAM #90 tablet 02/12/21 05/31/21 Rx metoprolol succinate 25 mg 50 mg PO QAM #30 tablet 02/12/21 05/31/21 Rx tablet,extended release 24 hr spironolactone 25 mg tablet 25 mg PO DAILY 02/12/21 05/30/21 History aspirin 81 mg tablet,delayed 81 mg PO DAILY 02/26/21 05/31/21 History release atorvastatin 20 mg tablet 20 mg PO DAILY 02/26/21 05/30/21 History Current Medications: Active Medications Sodium Chloride (Normal Saline Iv) 500 mls @ 100 mls/hr IV CONT .Q5H FRANCK Sedation/Anesthesia: No previous sedation/anesthesia problems (including family history). [facility] Past Medical History Medical History Cardiomyopathy Finger amputation, no complication tip of left middle finger Hypertension PUD (peptic ulcer disease) Surgical History Surgical History History of tonsillectomy Family History Family History Father Congestive heart failure Hypertension Cerebrovascular accident Mother Hypertension Heart disease Daughter Breast cancer Daughter Hodgkins disease Grandparent Cancer Diabetes mellitus Heart disease Social History Social History Social History: the patient is now smoking a half a pack a cigarettes a day. He did quit for about 2 years. He works for [employer]. He is and lives with his . His is the durable power regulatory attorney for healthcare. The patient initially had 4 children 1 from SIDS and a daughter from breast cancer. Patient drinks about 2 beers a night After work and then on the weekends is usually little bit more. He does not use any marijuana or illicit drugs. The patient desires to be a full code. Smoking packs per day: 0.5 Smoking cigarettes per day: 10.0 Smoking status: Former smoker Smoking end date: 02/22/21 Alcohol intake: current Drinks per week: 4 Substance use: former Living arrangements: with family Gender identity (if verbalized by the patient): Male Sexual Orientation (if Verbalized by the Patient): Straight or Heterosexual Spiritual care concerns: No Mod Sed Physical Exam Physical Exam Pre Procedural Exam: Normal: Appearance, Eyes, Ears, Nose, Neck, Throat, Airway, Lungs, Heart Size, Heart Rate, Heart Rhythm, Neuro Exam, Abdomen, Genitalia, Extremities ( intact femoral pulses, intact pedal pulses on the right) and Skin Hours since solid foods: 12 Hours since liquid intake: 12 Internal Medicine - PN: Obj Da Vital Signs Vital Signs: Vital Signs - 24 hr 05/31/21 07:40 Temperature 97.4 F L Pulse Rate 75 Respiratory Rate 14 Blood Pressure 143/96 H Pulse Oximetry 100 Meds/Results Medications: Active Medications Generic Name Dose Route Start Last Admin Trade Name Freq PRN Reason Stop Dose Admin Sodium Chloride 500 mls @ 100 mls/hr 05/31/21 07:00 Normal Saline Iv IV CONT .Q5H FRANCK Labs CBC & Chem 7
--- NOTE | 2021-05-31 09:37 | PM.OP ---
Procedure Note - Brief Procedure Note - Brief Date of procedure: 05/31/21 Pre-op diagnosis: abnormal stress test Cardiomyopathy, abnormal stress test Procedure performed: conscious sedation Left heart catheterization Description of procedure: uneventful left heart Surgeon: Arabella lAaniz MD Complications: No immediate complications Condition: stable Disposition: observation Findings: minimal luminal irregularities Mild cardiomyopathy EF 45-50%
--- NOTE | 2021-05-31 09:38 | P.PCNCC_ITS ---
Cardiac Cath Procedure Note Date of procedure:: 05/31/21 Performing physician:: Arabella Alaniz MD Indication:: cardiomyopathy, abnormal stress test Brief clinical history:: 65-year-old male presenting with CHF and cardiomyopathy in January. Lexiscan showed a large fixed inferolateral apical defect and his echo shows hypokinesis of these areas. He notes prior to admission in January he was having some pressure in his chest with exertion. A cardiac catheterization is being performed for definitive diagnosis of possible CAD. . Procedure Procedure performed:: 1. Conscious sedation 2. Left heart catheterization 3. Selective Coronary angiography 4. Left ventriculography 5. Angiography the right common femoral artery Estimated blood loss:: negligible Procedure note:: Site: Right femoral artery Catheters: 5 Singaporean arterial sheath, 5 Singaporean 4 cm right and left Addi catheters, 5 Singaporean pigtail catheter Conscious sedation: The patient has no known prior history of adverse affects of conscious sedation. Oropharynx was clear. The patient is deemed a good candidate for conscious sedation. Conscious sedation began at: 914 Conscious sedation ended at: 931 Total conscious sedation time:17 min Medications: Versed 1 mg, fentanyl 50 mcg IV push The patient had continuous hemodynamic monitoring, and was also continuously monitored by: Iris Crisostomo RN The patient tolerated conscious sedation well. Detailed procedure: After informed consent the patient brought to the medical laboratory technical officer and the right femoral area was prepped and draped in the usual fashion. After conscious sedation and local anesthesia the right femoral artery was punctured and cannulated with the arterial sheath. Selective Coronary angiography was performed with the coronary catheters in multiple projections. These were withdrawn. The pigtail catheter was advanced into the central circulation and left ventricle for pressure measurements and left ventriculography which was performed in the OLSON projection. This was withdrawn. angiography of the right common femoral artery was performed and the sheath was in suitable position for a vascular closure device. Angio-Seal was applied, the arterial sheath was removed and hemostasis was obtained. The patient tolerated the procedure well with no complications. Estimated blood loss was negligible. . Findings:: Pressures: Pre Left ventriculography aortic pressure was 100/ 70 and LV was 120/ 4 mmHg. Post left ventriculography, LV was 110/ 3 and aorta was 116/ 80 mmHg. Left coronary artery: The left main, Left anterior descending and circumflex vessels had minimal luminal irregularities but widely patent. The Left anterior descending wrapped the apex. Right coronary artery: Minimal luminal irregularities but Left ventriculogram: Moderate hypokinesis of the anterolateral wall, mild hypokinesis of the inferior wall, ejection fraction 45-50%, no mitral regurgitation. Mildly dilated sinuses of Valsalva. Femoral artery angiogram: Minimal luminal irregularities, widely patent . Conclusion:: Widely patent coronary arteries with only minimal luminal irregularities. Mild left ventricular dysfunction as described above with segmental wall motion abnormalities, EF 45-50%. Recommendation: Continue therapy for idiopathic dilated cardiomyopathy.
--- NOTE | 2021-05-31 12:45 | SUR.PHASEII ---
Discharge instructions given to patient and reviewed with patient and at bedside. Emphasis placed on follow-up appointment, when to notify the doctor, post op medications, activity restrictions, and wound/site care. Patient and verbalize understanding. PIV removed with catheter intact.
--- NOTE | 2021-05-31 13:48 | SUR.PHASEII ---
Patient escorted by staff to vehicle via wheelchair where he was picked up by his .
== END 2021-05-31 13:35 | disposition home or self-care (01) ==
PROVIDERS: PCP Internal Medicine; Visit Provider Internal Medicine Cardiovascular Disease
PROC: 4A023N7 Measurement of Cardiac Sampling and Pressure, Left Heart, Percutaneous Approach (ICD-10-PCS; CPT 93452; principal; 2021-05-31 08:30)
DX: I42.0 Dilated cardiomyopathy (principal); I50.9 Heart failure, unspecified; R94.39 Abnormal result of other cardiovascular function study; I11.0 Hypertensive heart disease with heart failure; Z79.82 Long term (current) use of aspirin; F17.210 Nicotine dependence, cigarettes, uncomplicated
CPT/HCPCS: 36415; 80053; 80061; 85025; 93458; C1760; C1887; C1894; C9803; G0269; J1644; J2250; J3010; J7040; U0003; U0005

== ENCOUNTER 2023-12-04 11:27 | Outpatient (CLI) | payer OTHER, SELFPAY ==
[2023-12-04 14:01] LABS: Alanine Aminotransferase 34 U/L (6-50); Albumin Level 4.4 g/dL (3.5-5.1); Alkaline Phosphatase 54 U/L (38-126); Anion Gap 8 mmol/L (8-16); Aspartate Amino Transferase 28 U/L (17-59); Bilirubin,Total 1.1 mg/dL (0.2-1.3); Blood Urea Nitrogen 20 mg/dL (9-20); Calcium 9.5 mg/dL (8.4-10.2); Carbon Dioxide 28 mmol/L (22-30); Chloride 102 mmol/L (98-107); Estimated Glomerular Filt Rate > 60; Glucose 126 mg/dL (65-110); Potassium 4.4 mmol/L (3.4-5.0); Sodium 138 mmol/L (137-145)
[2023-12-04 14:08] LABS: NT Pro B Type Natriuretic Pept < 20 pg/mL (19.9-100)
== END 2023-12-04 11:28 | disposition home or self-care (01) ==
LOC: ANHLAB 11:45
PROVIDERS: PCP Internal Medicine; Visit Provider Internal Medicine Cardiovascular Disease
DX: I11.0 Hypertensive heart disease with heart failure (principal); I50.42 Chronic combined systolic (congestive) and diastolic (congestive) heart failure; I42.0 Dilated cardiomyopathy
CPT/HCPCS: 36415; 80053; 83880

== ENCOUNTER 2024-09-12 14:19 | Emergency (ER) | payer MEDICARE, SELFPAY ==
--- NOTE | 2024-09-12 14:28 | ED.GENADULT ---
HPI - General Adult General Chief complaint: Weakness Stated complaint: Weak,Trouble Swallowing,Fatigue Time Seen by Provider: 09/12/24 14:37 Source: patient, RN notes reviewed and old records reviewed Mode of arrival: ambulatory Limitations: no limitations History of Present Illness HPI narrative: 69-year-old male presents to the [facility] with complaints of feeling weak, generalized fatigue and trouble swallowing that has increased over the past week. Has taken ibuprofen. Patient denies any chest pain, shortness of breath, cough. Did feel feverish at the beginning of the week but did not measure his temperature. Patient was originally concern for his blood pressure. Has a significant cardiac history. No swelling in extremities. Patient reports that early August he did have a cardiac workup by economics lecturer a [facility] Related Data Home Medications Medication Instructions Recorded Confirmed spironolactone 25 mg tablet 25 mg PO DAILY 02/12/21 09/12/24 aspirin 81 mg tablet,delayed 81 mg PO DAILY 02/26/21 09/12/24 release (Adult Low Dose Aspirin) atorvastatin 20 mg tablet 20 mg PO DAILY 02/26/21 09/12/24 amlodipine 10 mg-valsartan 320 mg 1 tablet PO DAILY 09/12/24 09/12/24 tablet Allergies Allergy/AdvReac Type Severity Reaction Status Date / Time No Known Allergies Allergy Verified 09/12/24 18:35 Review of Systems Review of Systems: All systems reviewed & are unremarkable except as noted in HPI and below Constitutional: Constitutional: Reports as per HPI, Reports fatigue, Reports poor appetite and Reports weakness ENT: Reports system reviewed and no additional complaints, except as documented Cardiovascular: Cardiovascular: Reports no additional cardiovascular complaints, Denies chest pain and Denies dyspnea Respiratory: Respiratory: Reports no additional respiratory complaints, Denies chest congestion, Denies cough and Denies dyspnea Gastrointestinal: Gastrointestinal: Reports no additional gastrointestinal complaints, Denies abdominal pain, Denies nausea and Denies vomiting Musculoskeletal: Musculoskeletal: Reports no additional musculoskeletal complaints Integumentary/Breasts: Skin/Breast: Reports system reviewed and no additional complaints, except as docu PMFSH Past Medical History Medical History Cardiomyopathy Finger amputation, no complication tip of left middle finger Hypertension PUD (peptic ulcer disease) Surgical History Surgical History History of tonsillectomy Family History Family History Father Congestive heart failure Hypertension Cerebrovascular accident Mother Hypertension Heart disease Daughter Breast cancer Daughter Hodgkins disease Grandparent Cancer Diabetes mellitus Heart disease Social History Social History Social History: the patient is now smoking a half a pack a cigarettes a day. He did quit for about 2 years. He works for [employer]. He is and lives with his . His is the durable power admitted attorneys for healthcare. The patient initially had 4 children 1 from SIDS and a daughter from breast cancer. Patient drinks about 2 beers a night After work and then on the weekends is usually little bit more. He does not use any marijuana or illicit drugs. The patient desires to be a full code. Smoking packs per day: 0.5 Smoking cigarettes per day: 10.0 Smoking status: Former smoker Smoking end date: 02/22/21 Alcohol intake: current Drinks per week: 4 Substance use: former Living arrangements: with family Gender identity (if verbalized by the patient): Male Sexual Orientation (if Verbalized by the Patient): Straight or Heterosexual Spiritual care concerns: No Comments At the time of my sig
[2024-09-12 14:45] VITALS: BP 108/92; PULSE 92; RESP 16; TEMP 36.2; O2SAT 99
[2024-09-12 14:58] LABS: EDCOVIDSCREEN Negative (Negative); EDINFLUASCREEN Negative (Negative); EDINFLUBSCREEN Negative (Negative); EDSTREPNEGPOS1 Negative (Negative)
== END 2024-09-12 15:10 | disposition home or self-care (01) ==
PROVIDERS: Emergency Provider Nurse Practitioner; PCP Internal Medicine
DX: R53.83 Other fatigue (principal); Z20.822 Contact with and (suspected) exposure to COVID-19; F17.210 Nicotine dependence, cigarettes, uncomplicated; I42.9 Cardiomyopathy, unspecified; I10 Essential (primary) hypertension; Z79.82 Long term (current) use of aspirin
CPT/HCPCS: 87081; 87426; 87804; 87880; 99213; G0463

== ENCOUNTER 2024-09-13 14:48 | Inpatient (IN) | payer MEDICARE, SELFPAY ==
[2024-09-13] VITALS (10 sets, daily range): BP systolic 77–112; BP diastolic 47–78; PULSE 69–90; RESP 16–22; TEMP 36.4–36.8; O2SAT 94–100; BMI 28.5
--- NOTE | ~2024-09-13 | CT_ITS ---
EXAMINATION: CT soft tissue neck chest wo DATE: 09/14/2024 12:44 INDICATION: Dysphagia. TECHNIQUE: Computed tomography (CT) of the neck and chest was performed without intravenous contrast. Automated exposure control and iterative reconstruction technique were employed. The dose-length pro duct was 1008.48 mGy-cm. COMPARISON: CT abdomen and pelvis 01/16/2011 FINDINGS: CT NECK: There are no pathologically enlarged lymph nodes. The pharynx and larynx are normal. There i s a 4 mm nodule in right thyroid lobe, likely not clinically significant. There is severe cervical sp ondylosis. CT CHEST: There is mild emphysema. The lungs demonstrate mild atelectasis. No pleural effusion. The h eart size is normal. There are coronary artery calcifications. No pericardial effusion. The central p ulmonaries are enlarged, consistent with pulmonary arterial hypertension. There are cysts in the live r is measuring up to 1.9 cm. Partially visualized are 2 masses in left adrenal gland with a larger la rger measuring 18 mm measuring soft tissue attenuation. There is mild thoracic spondylosis. IMPRESSION: 1. No etiology for the patient's symptoms. 2. Left adrenal masses measuring up to 18 mm. 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 Reviewed, dictated and finalized at location A. IMPRESSION: 1. No etiology for the patient's symptoms. 2. Left adrenal masses measuring up to 18 mm. In the absence of known malignanc y, these findings are likely adenomas.
--- NOTE | ~2024-09-13 | US_ITS ---
US renal BI Ordering provider: Dony Beebe MD History: . JEANETTE . Comparison: US renal BI Ordering provider: Dony Beebe MD History: . JEANETTE . Comparison: None. Technique: Ultrasound bilateral kidneys. Findings: RIGHT KIDNEY: Measures 11.3x 5.3x 6 cm in length which is normal in size. No renal cysts. No renal ma ss or visualized echogenic stones. Otherwise, normal echotexture and contour. No hydronephrosis. Norm al renal cortical thickness. LEFT KIDNEY: Measures 12x 5.9x 6.2 cm in length which is normal in size. No renal cysts. No renal mas s or visualized echogenic stones. Otherwise, normal echotexture and contour. No hydronephrosis. Ana l renal cortical thickness. BLADDER: Normal. Ureteral jet were not seen on the right. IMPRESSION: No definite abnormality seen. Reviewed, dictated and finalized at location A.
--- NOTE | 2024-09-13 16:17 | ECG_ITS ---
Test Date: 2024-09-13 17:19:20 Measurements Intervals [place] Rate: 82 P: 57 [place]: 167 QRS: 15 QRSD: 97 T: 3 QT: 393 QTc: 461 Interpretive Statements SINUS RHYTHM ST DEVIATION AND MODERATE T-WAVE ABNORMALITY, CONSIDER LATERAL ISCHEMIA [-0.1+ mV T-WAVE IN I/aVL/V5/V6] ST DEVIATION AND MODERATE T-WAVE ABNORMALITY, CONSIDER INFERIOR ISCHEMIA [-0.1+ mV T-WAVE IN II/aVF] No previous ECG available for comparison Electronically Signed On 09-14-2024 09:38:28 CDT by Mejia Waldrop M.D.
--- NOTE | 2024-09-13 16:45 | ED.GENADULT ---
HPI - General Adult General Chief complaint: Unspecified Stated complaint: fatigue, difficulty swallowing Time Seen by Provider: 09/13/24 16:42 History of Present Illness HPI narrative: 69-year-old male presenting to the emergency department for evaluation for generalized fatigue. Patient states he has had some increasing difficulty swallowing. Patient also has a reddened and irritated tongue that appears to be thrush. Patient denies any personal history of diabetes Related Data Home Medications Medication Instructions Recorded Confirmed spironolactone 25 mg tablet 25 mg PO DAILY 02/12/21 09/12/24 aspirin 81 mg tablet,delayed 81 mg PO DAILY 02/26/21 09/12/24 release (Adult Low Dose Aspirin) atorvastatin 20 mg tablet 20 mg PO DAILY 02/26/21 09/12/24 amlodipine 10 mg-valsartan 320 mg 1 tablet PO DAILY 09/12/24 09/12/24 tablet Allergies Allergy/AdvReac Type Severity Reaction Status Date / Time No Known Allergies Allergy Verified 09/12/24 18:35 Review of Systems Review of Systems: All systems reviewed & are unremarkable except as noted in HPI and below PMFSH Past Medical History Medical History (Updated 09/13/24 @ 19:27 by Elliott Madrigal MD) Cardiomyopathy Combined systolic and diastolic congestive heart failure Echocardiogram in April 2021 showed moderate to severe concentric left ventricular hypertrophy, mild enlargement of left ventricle cavity, mild global left ventricular systolic dysfunction, impaired diastolic relaxation grade 1, and an EF visually estimated at 40 to 45% with mild pulmonary hypertension. Dilated idiopathic cardiomyopathy Hypertension Peptic ulcer Surgical History Surgical History (Updated 09/13/24 @ 18:50 by Nadine Mcarthur PA-C) Finger amputation, no complication tip of left middle finger History of cardiac catheterization (05/2021) Widely patent coronary arteries with only minimal luminal irregularities, mild left ventricular dysfunction with segmental wall motion abnormalities, EF 45 to 50%. History of tonsillectomy Family History Family History Father Congestive heart failure Hypertension Cerebrovascular accident Mother Hypertension Heart disease Daughter Breast cancer Daughter Hodgkins disease Grandparent Cancer Diabetes mellitus Heart disease Social History Social History (Updated 09/13/24 @ 18:51 by Nadine Mcarthur PA-C) Social History: Surrogate medical decision maker: Code status: Full code. Smoking packs per day: 0.5 Smoking cigarettes per day: 10.0 Smoking status: Former smoker Smoking end date: 02/22/21 Alcohol intake: current Drinks per week: 4 Substance use: former Living arrangements: with family Spiritual care concerns: No Exam Narrative: APPEARANCE: Well appearing, no pain, no distress, well-nourished. HEAD: normocephalic, atraumatic. EYES: PERRLA/EOMI, conjunctivae clear. NOSE: Normal no drainage Mouth: Thrush EARS:TMS clear with good light reflex. THROAT: Pharynx clear, no exudate. NECK: Supple. No adenopathy, no masses. RESPIRATORY: Airway patent, respirations nonlabored. Clear to auscultation bilaterally, no rales, rhonchi, wheezing. CARDIOVASCULAR: Regular rate and rhythm without murmurs rubs or gallops. ABDOMINAL: Soft, nontender, nondistended, normal bowel sounds MUSCULOSKELETAL: Moves all extremities. Strength/ROM intact, No edema, No calf tenderness. NEURO: Alert. Cranial nerves II through XII intact. Good gait. Good coordination SKIN: Warm, dry. Normal Color Course Vital Signs Vital signs: Vital Signs Temperature 97.6 F 09/13/24 14:53 Pulse Rate 90 09/13/24 14:53 Respiratory Rate 18 09/13/24 14:53 Blood Pressure 111/73 09/13/24 14:53 Pulse Oximetry 99 09/13/24 14:53 Oxygen Delivery Room Air 09/13/24 14:53 Temperature 97.6 F 09/13/24 14:53 Pulse Rate 78 09/13/24 18:56 Respiratory Rate 19 09/13/24 18:56 Blood Pressure 112/52 L 09/13/24 18:56 Pulse Oximetry 100 09/13/24 18:56 Oxygen Delivery Room Air 09/13/24 14:53 Medical Decision Making MDM Narrative Medical decision making narrative: 69-year-old male presenting to the emergency department for evaluation for difficulty swallowing. Patient states he has been ongoing for the last week. Patient is afebrile with normal vital signs. Patient does have thrush. Patient was found to be very hyperglycemic with a glucose of 1110. Patient's lactic acid was elevated at 4.9. Patient was treated to his IV fluids and started on insulin. Patient is afebrile but does have a leukocytosis of 14.6 hemoglobin of 16.5. Patient's creatinine is elevated at 3.0 and potassium was 5.6. Case was discussed with the hospitalist and the fountain roller assembler patient will be admitted. Patient was updated the results of his workup patient was comfortable plan for admission. All questions concerns were addressed. Differential Diagnosis Differential Diagnosis: New onset diabetes, DKA, hyperglycemia, fracture, dehydration, acute kidney injury, pneumonia, COVID, RSV, influenza Vital Signs Vital Signs: Vital Signs Temperature 97.6 F 09/13/24 14:53 Pulse Rate 90 09/13/24 14:53 Respiratory Rate 18 09/13/24 14:53 Blood Pressure 111/73 09/13/24 14:53 Pulse Oximetry 99 09/13/24 14:53 Oxygen Delivery Room Air 09/13/24 14:53 Temperature 97.6 F 09/13/24 14:53 Pulse Rate 78 09/13/24 18:56 Respiratory Rate 19 09/13/24 18:56 Blood Pressure 112/52 L 09/13/24 18:56 Pulse Oximetry 100 09/13/24 18:56 Oxygen Delivery Room Air 09/13/24 14:53 Lab Data Lab results reviewed: Yes I reviewed the patient's lab results. 09/13/24 17:25 09/13/24 17:25 Labs: Lab Results 09/13/24 09/13/24 09/13/24 Range/Units 17:25 17:25 17:26 WBC 14.6 H (4.5-10.0) K/mm3 RBC 5.12 (4.6-6.20) M/mm3 Hgb 16.5 D (14.0-18.0) g/dL Hct 51.3 (42.0-52.0) % MCV 100.2 H (80-100) fl MCH 32.2 (26-34) pg MCHC 32.2 (32-36) g/dl RDW 12.5 (11.5-14.5) % Plt Count 398 H (150-375) k/mm3 MPV 11.4 H (7.4-10.4) fl Immature Gran % (Auto) 0.7 H (0-0.5) % Neut % (Auto) 88.6 H (45.5-73.1) % Lymph % (Auto) 5.0 L (18.3-44.2) % [place] % (Auto) 5.5 (2.6-8.5) % Eos % (Auto) 0.0 (0-4.4) % Baso % (Auto) 0.2 (0.2-1.2) % Lymph # (Auto) 0.73 L (0.9-3.2) K/mm3 [place] # (Auto) 0.8 H (0.1-0.6) K/mm3 Eos # (Auto) 0.0 (0-0.3) K/mm3 Baso # (Auto) 0.0 (0.0-0.1) K/mm3 Abs Immat Gran (auto) 0.10 H (0.00-0.031) K/mm3 Absolute Neuts (auto) 13.0 H (1.3-6.7) K/mm3 Absolute Nucleated RBC 0.000 (0.0-0.012) K/mm3 Nucleated RBC % 0.0 (0.0-0.2) % PT (11.1-14.7) Seconds INR APTT (22.3-36.8) Seconds D-Dimer Cancelled Sodium 136 L (137-145) mmol/L Potassium 5.6 H (3.4-5.0) mmol/L Chloride 92 L (98-107) mmol/L Carbon Dioxide 8 L (22-30) mmol/L Anion Gap 36 H (4-12) mmol/L BUN 74 H D (9-20) mg/dL Creatinine 3.00 H (0.7-1.3) mg/dL Estim Creat Clear Calc 28 ml/min Estimated GFR 25 L (59 - ) Glucose 1110 H* (65-110) mg/dL Hemoglobin A1c 12.8 H (<5.7) % Lactic Acid 4.9 H* (0.7-2.0) mmol/L Calcium 10.6 H (8.4-10.2) mg/dL Phosphorus 11.4 H (2.5-4.5) mg/dL Magnesium 3.7 H 3.7 H (1.6-2.3) mg/dL Total Bilirubin 1.0 (0.2-1.3) mg/dL AST 17 (17-59) U/L ALT 28 (6-50) U/L Alkaline Phosphatase 82 (38-126) U/L Troponin I < 0.012 (0.000-0.034) ng/mL NT-Pro-B Natriuret Pep 59 (19.9-100) pg/mL Total Protein 8.0 (6.3-8.2) g/dL Albumin 4.9 (3.5-5.1) g/dL Urine Color Yellow (Yellow) Urine Appearance Clear (Clear) Urine pH 5.0 (5.0-9.0) Ur Specific [place] 1.026 (1.001-1.035) Urine Protein Negative (Negative) mg/dL Urine Glucose (UA) 3+ H (Negative) mg/dL Urine Ketones 2+ H (Negative) mg/dL Ur Blood (Man) Negative (Negative) Urine Nitrate Negative (Negative) Urine Bilirubin Negative (Negative) Urine Urobilinogen 0.2 (<2.0) mg/dL Leukocyte Esterase Rfl Negative (Negative) KELVIN/UL Influenza A (RT-PCR) Negative (Negative) Influenza B (RT-PCR) Negative (Negative) RSV (RT-PCR) Negative (Negative) SARS-CoV-2 RNA (RT-PCR) Negative (Negative) Group A Strep (PCR) (Negative) 09/13/24 09/13/24 Range/Units 17:32 18:09 WBC (4.5-10.0) K/mm3 RBC (4.6-6.20) M/mm3 Hgb (14.0-18.0) g/dL Hct (42.0-52.0) % MCV (80-100) fl MCH (26-34) pg MCHC (32-36) g/dl RDW (11.5-14.5) % Plt Count (150-375) k/mm3 MPV (7.4-10.4) fl Immature Gran % (Auto) (0-0.5) % Neut % (Auto) (45.5-73.1) % Lymph % (Auto) (18.3-44.2) % [place] % (Auto) (2.6-8.5) % Eos % (Auto) (0-4.4) % Baso % (Auto) (0.2-1.2) % Lymph # (Auto) (0.9-3.2) K/mm3 [place] # (Auto) (0.1-0.6) K/mm3 Eos # (Auto) (0-0.3) K/mm3 Baso # (Auto) (0.0-0.1) K/mm3 Abs Immat Gran (auto) (0.00-0.031) K/mm3 Absolute Neuts (auto) (1.3-6.7) K/mm3 Absolute Nucleated RBC (0.0-0.012) K/mm3 Nucleated RBC % (0.0-0.2) % PT 15.0 H (11.1-14.7) Seconds INR 1.2 APTT 21.5 L (22.3-36.8) Seconds D-Dimer Sodium (137-145) mmol/L Potassium (3.4-5.0) mmol/L Chloride (98-107) mmol/L Carbon Dioxide (22-30) mmol/L Anion Gap (4-12) mmol/L BUN (9-20) mg/dL Creatinine (0.7-1.3) mg/dL Estim Creat Clear Calc ml/min Estimated GFR (59 - ) Glucose (65-110) mg/dL Hemoglobin A1c (<5.7) % Lactic Acid (0.7-2.0) mmol/L Calcium (8.4-10.2) mg/dL Phosphorus (2.5-4.5) mg/dL Magnesium (1.6-2.3) mg/dL Total Bilirubin (0.2-1.3) mg/dL AST (17-59) U/L ALT (6-50) U/L Alkaline Phosphatase (38-126) U/L Troponin I (0.000-0.034) ng/mL NT-Pro-B Natriuret Pep (19.9-100) pg/mL Total Protein (6.3-8.2) g/dL Albumin (3.5-5.1) g/dL Urine Color (Yellow) Urine Appearance (Clear) Urine pH (5.0-9.0) Ur Specific [place] (1.001-1.035) Urine Protein (Negative) mg/dL Urine Glucose (UA) (Negative) mg/dL Urine Ketones (Negative) mg/dL Ur Blood (Man) (Negative) Urine Nitrate (Negative) Urine Bilirubin (Negative) Urine Urobilinogen (<2.0) mg/dL Leukocyte Esterase Rfl (Negative) KELVIN/UL Influenza A (RT-PCR) (Negative) Influenza B (RT-PCR) (Negative) RSV (RT-PCR) (Negative) SARS-CoV-2 RNA (RT-PCR) (Negative) Group A Strep (PCR) Not detected (Negative) ECG Data EKG #1: EKG Interpretation: normal rate, sinus rhythm, non-specific ST changes, normal QRS, normal QT and NL axis Critical Care Time Critical Care Time Critical Care Time: Yes Total Critical Care Time: 35 Discharge Plan Discharge Clinical Impression: Hyperglycemia, Thrush, DKA (diabetic ketoacidosis) Patient Disposition: Still a Patient Condition: Critical
[2024-09-13] MEDS: SODIUM CHLORIDE 0.9% IV 1,000 ML 999 ML IV CONT ×2 (17:26)
[2024-09-13] MEDS: NYSTATIN 100,000 UNITS/ML SUSP 5 ML ORAL.SUSP PO (17:27)
[2024-09-13 17:40] LABS: Basophils Percent Auto 0.2 % (0.2-1.2); Hematocrit 51.3 % (42.0-52.0); Hemoglobin 16.5 g/dL (14.0-18.0); Immature Granulocyte Percent A 0.7 % (0-0.5); Lymphocytes Absolute Auto 0.73 K/mm3 (0.9-3.2); Mean Corpuscular HGB Conc 32.2 g/dl (32-36); Mean Corpuscular Hemoglobin 32.2 pg (26-34); Mean Corpuscular Volume 100.2 fl (80-100); Mean Platelet Volume 11.4 fl (7.4-10.4); Monocytes Absolute Auto 0.8 K/mm3 (0.1-0.6); Monocytes Percent Auto 5.5 % (2.6-8.5); Neutrophils Percent Auto 88.6 % (45.5-73.1); Platelet Count Result 398 k/mm3 (150-375); Red Blood Count 5.12 M/mm3 (4.6-6.20); Red Cell Distribution Width 12.5 % (11.5-14.5); White Blood Count 14.6 K/mm3 (4.5-10.0)
[2024-09-13 17:58] LABS: Lactic Acid Reflex 4.9 mmol/L (0.7-2.0)
[2024-09-13 18:01] LABS: Add Urine Microscopic? NO; Appearance Urine Clear (Clear); Bilirubin Urine Negative (Negative); Blood Urine Negative (Negative); Color Urine Yellow (Yellow); Glucose Urine UA 3+ mg/dL (Negative); Ketones Urine 2+ mg/dL (Negative); Leukocyte Esterase Ur Negative LEU/UL (Negative); Nitrate Urine Negative (Negative); Protein Urine Negative (Negative); Specific Grav Ur 1.026 (1.001-1.035); Urobilinogen Urine 0.2 mg/dL (<2.0)
[2024-09-13 18:19] LABS: Alanine Aminotransferase 28 U/L (6-50); Albumin Level 4.9 g/dL (3.5-5.1); Alkaline Phosphatase 82 U/L (38-126); Anion Gap 36 mmol/L (4-12); Aspartate Amino Transferase 17 U/L (17-59); Blood Urea Nitrogen 74 mg/dL (9-20); Calcium 10.6 mg/dL (8.4-10.2); Carbon Dioxide 8 mmol/L (22-30); Chloride 92 mmol/L (98-107); Estimated CRCL calculation 28 ml/min; Estimated Glomerular Filt Rate 25; Glucose 1110 mg/dL (65-110); Magnesium 3.7 mg/dL (1.6-2.3); Potassium 5.6 mmol/L (3.4-5.0); Sodium 136 mmol/L (137-145)
[2024-09-13 18:20] LABS: NT Pro B Type Natriuretic Pept 59 pg/mL (19.9-100); Troponin I < 0.012 ng/mL (0.000-0.034)
[2024-09-13 18:27] LABS: INR 1.2; Partial Thromboplastin Time 21.5 Seconds (22.3-36.8)
[2024-09-13 18:31] LABS: Strep Group A RT-PCR NOT DETECTED (Negative)
[2024-09-13 18:42] LABS: Influenza A QL RT-PCR Negative (Negative); Influenza B QL RT-PCR Negative (Negative); RSV RNA, RT-PCR Negative (Negative); SARS-CoV-2 RNA PCR Negative (Negative)
--- NOTE | 2024-09-13 18:45 | P.HP_ITS ---
H&P: HPI History of Present Illness Date/Time: 09/13/24 18:45 Chief Complaint: Fatigue, sore throat. Narrative: This is a 69-year-old male with history of idiopathic dilated cardiomyopathy, hypertension, and hyperlipidemia who presented to the emergency department via private vehicle for evaluation of fatigue and sore throat. The patient provides the following history. He has not been feeling himself for about a week with symptoms to include constant thirst, sore throat with difficulties swallowing, and occasional lightheadedness. He thought perhaps he had a cold and was seen at urgent care yesterday where he tested negative for influenza and COVID. Due to ongoing symptoms he came in today for evaluation. He denies fever, chills, sweats, syncope, near syncope, chest pain, cough, shortness of breath, vomiting, diarrhea, and dysuria. In the ED: He was afebrile on arrival. Blood pressures have been running in the low 90s systolic with a mean arterial pressure greater than 70. Labs are significant for WBC count 14.6, hemoglobin 16.5, MCV 100.2, PTT 50.0, PTT 21.5, INR 1.2, sodium 136, potassium 5.6, chloride 92, carbon dioxide 8, anion gap 36, BUN 74, creatinine 3.00, glucose 1110, lactic acid 4.9, calcium 10.6. 3+ glucose and 2+ ketones were noted on urinalysis. He received a 2 L normal saline bolus and is being admitted to the ICU in this setting on insulin drip. Review of Systems Review of Systems: 12 systems were reviewed and are negativ e except for as per HPI. [facility] Past Medical History Medical History Cardiomyopathy Combined systolic and diastolic congestive heart failure Echocardiogram in April 2021 showed moderate to severe concentric left ventricular hypertrophy, mild enlargement of left ventricle cavity, mild global left ventricular systolic dysfunction, impaired diastolic relaxation grade 1, and an EF visually estimated at 40 to 45% with mild pulmonary hypertension. Dilated idiopathic cardiomyopathy Hypertension Peptic ulcer Surgical History Surgical History Finger amputation, no complication tip of left middle finger History of cardiac catheterization (05/2021) Widely patent coronary arteries with only minimal luminal irregularities, mild left ventricular dysfunction with segmental wall motion abnormalities, EF 45 to 50%. History of tonsillectomy Family History Family History Father Congestive heart failure Hypertension Cerebrovascular accident Mother Hypertension Heart disease Daughter Breast cancer Daughter Hodgkins disease Grandparent Cancer Diabetes mellitus Heart disease Social History Social History (Updated 09/13/24 @ 22:59 by Nadine Mcarthur PA-C) Social History: Surrogate medical decision maker: Spouse Code status: Full code. Smoking packs per day: 0.5 Smoking cigarettes per day: 10.0 Smoking status: Former smoker Smoking end date: 02/22/21 Alcohol intake: current Drinks per week: 2 Substance use: former Do You Feel Safe in your Home?: Yes Lack of Transportation: No Lack of Food: Never True Current Housing: I Have Housing Concerned About Future Housing: YES Difficulty Paying Gas/Electric Bills: No Difficulty Paying for Meds: No Currently Unemployed: YES Education: Trade/Vocational Certificate Difficulty w/ Childcare or Family Care: No Living arrangements: with family Spiritual care concerns: No Meds Home Medications and Allergies Home Medications Medication Instructions Recorded Confirmed Type metoprolol succinate 25 mg 50 mg PO QAM #30 tabs 02/12/21 09/13/24 Rx tablet,extended release 24 hr (Toprol XL) spironolactone 25 mg tablet 25 mg PO DAILY 02/12/21 09/13/24 History aspirin 81 mg tablet,delayed 81 mg PO DAILY 02/26/21 09/13/24 History release (Adult Low Dose Aspirin) atorvastatin 20 mg tablet 20 mg PO DAILY 02/26/21 09/13/24 History furosemide 20 mg tablet (Lasix) 20 mg PO DAILY PRN Edema #30 tabs 05/31/21 09/13/24 Rx amlodipine 10 mg-valsartan 320 mg 1 tablet PO DAILY 09/12/24 09/13/24 History tablet Allergies Allergy/AdvReac Type Severity Reaction Status Date / Time No Known Allergies Allergy Verified 09/12/24 18:35 Vital Signs Vital Signs - 24 hr 09/13/24 14:53 09/13/24 16:09 09/13/24 17:13 Temperature 97.6 F Pulse Rate 90 89 90 Respiratory Rate 18 20 Blood Pressure 111/73 92/63 L Pulse Oximetry 99 98 Oxygen Delivery Room Air 09/13/24 17:23 Temperature Pulse Rate 83 Respiratory Rate 20 Blood Pressure 94/61 L Pulse Oximetry 100 Oxygen Delivery Exam Narrative: General: Mildly ill-appearing gentleman the semi-Small position in bed. Weight: 98 kg. BMI: 28.5. HEENT: PERRL, EOMI. Sclera anicteric. Tacky mucous membranes. Tongue is red with scattered whitish/yellow plaques. Neck: Supple. Respiratory: Lungs are clear to auscultation bilaterally. Cardiovascular: Regular rate and rhythm with S1-S2. Gastrointestinal: Abdomen is soft and nontender with positive bowel sounds. Large ventral hernia is reducible and without pain. Skin: Warm and dry. Extremities: No cyanosis, clubbing, or significant edema. Radial and pedal pulses intact. Neurological: Alert. Cranial nerves 2-12 are grossly intact. No gross focal deficits to casual conversation. Psychiatric: Pleasant and cooperative with normal mood and affect. Judgment and insight intact. H&P: Results Labs Labs: Short CBC 09/13/24 Range/Units 17:25 WBC 14.6 H (4.5-10.0) K/mm3 Hgb 16.5 D (14.0-18.0) g/dL Hct 51.3 (42.0-52.0) % Plt Count 398 H (150-375) k/mm3 BMP 09/13/24 17:25 Sodium 136 L Potassium 5.6 H Chloride 92 L Carbon Dioxide 8 L BUN 74 H D Creatinine 3.00 H Glucose 1110 H* Calcium 10.6 H Cardiac Enzymes 09/13/24 Range/Units 17:25 Troponin I < 0.012 (0.000-0.034) ng/mL Liver Function 09/13/24 Range/Units 17:25 Total Bilirubin 1.0 (0.2-1.3) mg/dL AST 17 (17-59) U/L ALT 28 (6-50) U/L Alkaline Phosphatase 82 (38-126) U/L Albumin 4.9 (3.5-5.1) g/dL Urine 09/13/24 Range/Units 17:26 Urine Color Yellow (Yellow) Urine Appearance Clear (Clear) Urine pH 5.0 (5.0-9.0) Ur Specific [place] 1.026 (1.001-1.035) Urine Protein Negative (Negative) mg/dL Urine Glucose (UA) 3+ H (Negative) mg/dL Assessment and Plan Assessment and plan (1) Diabetic ketoacidosis: Code(s): E11.10 - Type 2 diabetes mellitus with ketoacidosis without coma Status: Acute Assessment and Plan: Patient presents with severe hyperglycemia (1110), ketonuria, and elevated anion gap. * Currently on insulin drip which will be titrated per DKA protocol. * Continue Q hourly Accu-Cheks and q.4 BMPs. * Transition to long-acting insulin once anion gap has closed. (2) New onset type 2 diabetes mellitus: Code(s): E11.9 - Type 2 diabetes mellitus without complications Status: Acute Assessment and Plan: Hemoglobin A1c is 12.8% today. * Begin long-acting insulin upon resolution of DKA. * Consult dietitian and patient educator. (3) Acute kidney injury: Code(s): N17.9 - Acute kidney failure, unspecified Status: Acute Assessment and Plan: Acute kidney injury is likely due to profound dehydration in addition to diuretic and ARB use. * Received 2 L normal saline in the ED; continue IV fluid rehydration per DKA protocol. * Monitor strict I/O and daily weights. * Avoid nephrotoxic agents and renally dose all medications. * If no improvement with the above, a further workup will be pursued. (4) Electrolyte abnormality: Code(s): E87.8 - Other disorders of electrolyte and fluid balance, not elsewhere class ified Status: Acute Assessment and Plan: Including a sodium of 136 (152 when correcting for glucose), potassium 5.6, chloride 92, calcium 10.6. * Electrolytes should normalize with IV fluids and insulin drip. * Q.4 BMPs ordered while on insulin drip for close monitoring. * Hold thiazide and loop diuretic as above. (5) Lactic acidosis: Code(s): E87.20 - Acidosis, unspecified Status: Acute Assessment and Plan: Initial lactic acid was 4.9 and is 3.0 after 2 L bolus. No evidence of infection on workup. Likely related to dehydration/hypoperfusion. * Continue IV fluid rehydration. * Repeat lactic acid level is pending. (6) Thrush: Code(s): B37.0 - Candidal stomatitis Status: Acute Assessment and Plan: Likely due to uncontrolled hyperglycemia. * Nystatin swish and swallow given reports of sore throat as well. (7) Combined systolic and diastolic congestive heart failure: Code(s): I50.40 - Unspecified combined systolic (congestive) and diastolic (congestive) heart failure Status: Acute Assessment and Plan: Idiopathic dilated cardiomyopathy diagnosed in 2020 with an EF of 40 to 45%. * Avoid over-hydration and monitor volume status with I/O and daily weights. (8) Hypertension: Qualifiers: Hypertension type: essential hypertension Qualified Code(s): I10 - Essential (primary) hypertension Code(s): I10 - Essential (primary) hypertension Status: Chronic Assessment and Plan: Blood pressures have been running at the low end of normal. * Hold antihypertensives and monitor closely for now. Quality VTE Prophylaxis VTE prophylaxis: pharmacologic ordered Hospitalist MIPS Advance Care Plan I have confirmed that the patient's Advanced Care Plan is present, code status is documented, or surrogate decision maker is listed in patient medical record.: Yes Medication Reconciliation I have utilized all available resources to obtain, update and review the patients current medications (includes all prescriptions, OTC, herbals, cannabis, and nutritional supplements).: Yes Critical Care Time Critical Care Time: Yes Total Critical Care Time: 60 Attestation: Due to a high probability of clinically significant, life threatening deterioration, the patient required my highest level of preparedness to intervene emergently and I personally spent this critical care time directly and personally managing the patient. This critical care time included obtaining a history; examining the patient; pulse oximetry; ordering and review of studies; arranging urgent treatment with development of a management plan; evaluation of patient's response to treatment; frequent reassessment; and discussions with other providers. It was exclusive of separately billable procedures and treating other patients and teaching time. Please see Assessment and Plan section and the rest of the note for further information on patient assessment and treatment.
[2024-09-13 18:51] LABS: Magnesium 3.7 mg/dL (1.6-2.3); Phosphorus 11.4 mg/dL (2.5-4.5)
[2024-09-13] MEDS: INSULIN HUMAN REGULAR (*BKC) 100 UNITS/ML IV PUSH ×3 (18:51→23:40)
[2024-09-13] MEDS: SODIUM CHLORIDE 0.9% IV 1,000 ML 150 ML IV CONT (18:53)
[2024-09-13 19:00] LABS: Hemoglobin A1C 12.8 % (<5.7)
[2024-09-13] MEDS: INSULIN HUMAN REGULAR (*BKC) 100 UNITS in SODIUM CHLORIDE 0.9% IV 99 ML 10.5 UNITS IV CONT (19:13)
[2024-09-13 19:29] LABS: Fractional Inspired Oxygen 21 %; HCO3 VBG 10.7 mEq/l (24.0-30.0); PO2 VBG 28.5 mmHg (35.0-45.0)
[2024-09-13 19:31] LABS: PCO2 VBG 30.1 mmHg (42.0-48.0); pH VBG 7.168 (7.300-7.400)
--- NOTE | 2024-09-13 19:55 | ADMGEN ---
This patient, Percy Kumar, was admitted to Intensive Care Unit-2. Patient/family oriented to hospital policies and general routines including ID bracelet, bed and alarms, visiting hours, pain management, procedures, bathroom and other care routines, personal items, smoking policy, room service/diet, and visiting hours. Information on how to activate the Rapid Response Team has been discussed. Patient/Family are encouraged to report perceived risks to care and to ask questions if they do not understand what they are told or what they should do.
[2024-09-13 20:04] LABS: Anion Gap 27 mmol/L (4-12); Blood Urea Nitrogen 78 mg/dL (9-20); Carbon Dioxide 9 mmol/L (22-30); Chloride 100 mmol/L (98-107); Estimated CRCL calculation 27 ml/min; Estimated Glomerular Filt Rate 24; Potassium 5.7 mmol/L (3.4-5.0); Sodium 136 mmol/L (137-145)
[2024-09-13 20:09] LABS: Glucose 1058 mg/dL (65-110)
[2024-09-13 20:37] LABS: Reflex Lactic Acid Yes or No Add Lactic
[2024-09-13] MEDS: LACTATED RINGERS 1,000 ML 999 ML IV CONT ×2 (20:52→23:54)
[2024-09-13 21:08] LABS: Beta-Hydroxybutyrate/Acetoacetate 8.82 mmol/L (0.02-0.27)
[2024-09-13] MEDS: ONDANSETRON INJ 4 MG/2 ML VIAL IV PUSH (21:12)
[2024-09-13 22:11] LABS: Glucose Point of Care > 500 mg/dl (65-105)
[2024-09-13 23:18] LABS: Anion Gap 27 mmol/L (4-12); Blood Urea Nitrogen 77 mg/dL (9-20); Calcium 9.3 mg/dL (8.4-10.2); Carbon Dioxide 12 mmol/L (22-30); Chloride 104 mmol/L (98-107); Estimated CRCL calculation 30 ml/min; Estimated Glomerular Filt Rate 31; Glucose 723 mg/dL (65-110); Potassium 4.3 mmol/L (3.4-5.0); Sodium 143 mmol/L (137-145)
[2024-09-14] VITALS (29 sets, daily range): BP systolic 67–117; BP diastolic 43–87; PULSE 69–99; RESP 13–20; TEMP 36.3–37; O2SAT 88–100
[2024-09-14] MEDS: INSULIN HUMAN REGULAR (*BKC) 100 UNITS in SODIUM CHLORIDE 0.9% IV 99 ML 25 UNITS IV CONT (00:57)
[2024-09-14 01:00] LABS: Glucose Point of Care > 500 mg/dl (65-105)
[2024-09-14 02:06] LABS: Glucose Point of Care 426 mg/dl (65-105)
[2024-09-14] MEDS: SODIUM CHLORIDE 0.9% IV 1,000 ML 150 ML IV CONT (02:39)
[2024-09-14 03:06] LABS: Glucose Point of Care 322 mg/dl (65-105)
[2024-09-14 03:07] LABS: Basophils Percent Auto 0.2 % (0.2-1.2); Hematocrit 44.7 % (42.0-52.0); Hemoglobin 15.3 g/dL (14.0-18.0); Immature Granulocyte Absolute 0.06 K/mm3 (0.00-0.031); Immature Granulocyte Percent A 0.5 % (0-0.5); Lymphocytes Absolute Auto 0.82 K/mm3 (0.9-3.2); Lymphocytes Percent Auto 6.4 % (18.3-44.2); Mean Corpuscular HGB Conc 34.2 g/dl (32-36); Mean Corpuscular Hemoglobin 32.3 pg (26-34); Mean Corpuscular Volume 94.5 fl (80-100); Mean Platelet Volume 10.8 fl (7.4-10.4); Monocytes Absolute Auto 1.3 K/mm3 (0.1-0.6); Monocytes Percent Auto 9.9 % (2.6-8.5); Neutrophils Absolute Auto 10.6 K/mm3 (1.3-6.7); Platelet Count Result 320 k/mm3 (150-375); Red Blood Count 4.73 M/mm3 (4.6-6.20); Red Cell Distribution Width 12.3 % (11.5-14.5); White Blood Count 12.7 K/mm3 (4.5-10.0)
[2024-09-14 03:17] LABS: Anion Gap 14 mmol/L (4-12); Blood Urea Nitrogen 78 mg/dL (9-20); Calcium 9.3 mg/dL (8.4-10.2); Carbon Dioxide 22 mmol/L (22-30); Chloride 111 mmol/L (98-107); Estimated CRCL calculation 30 ml/min; Estimated Glomerular Filt Rate 31; Glucose 377 mg/dL (65-110); Magnesium 3.7 mg/dL (1.6-2.3); Potassium 3.9 mmol/L (3.4-5.0); Sodium 147 mmol/L (137-145)
[2024-09-14] MEDS: INSULIN HUMAN REGULAR (*BKC) 100 UNITS in SODIUM CHLORIDE 0.9% IV 99 ML 23.5 UNITS IV CONT (04:00)
[2024-09-14 04:07] LABS: Glucose Point of Care 274 mg/dl (65-105)
[2024-09-14 05:11] LABS: Glucose Point of Care 225 mg/dl (65-105)
[2024-09-14] MEDS: KCL 20 MEQ/D5/0.45% SOD CHL 1,000 ML 150 ML IV CONT (05:13)
[2024-09-14 06:20] LABS: Glucose Point of Care 180 mg/dl (65-105)
[2024-09-14 06:29] LABS: Anion Gap 11 mmol/L (4-12); Blood Urea Nitrogen 79 mg/dL (9-20); Calcium 9.2 mg/dL (8.4-10.2); Carbon Dioxide 24 mmol/L (22-30); Chloride 114 mmol/L (98-107); Estimated CRCL calculation 31 ml/min; Estimated Glomerular Filt Rate 33; Glucose 169 mg/dL (65-110); Potassium 4.1 mmol/L (3.4-5.0); Sodium 149 mmol/L (137-145)
[2024-09-14] MEDS: ALBUMIN HUMAN 25% 25 GM/100 ML 100 ML IVPB (07:00)
[2024-09-14 07:42] LABS: Glucose Point of Care 146 mg/dl (65-105)
[2024-09-14 08:12] LABS: Glucose Point of Care 128 mg/dl (65-105)
[2024-09-14] MEDS: INSULIN HUMAN REGULAR (*BKC) 100 UNITS in SODIUM CHLORIDE 0.9% IV 99 ML 8 UNITS IV CONT (08:15)
[2024-09-14] MEDS: NYSTATIN 100,000 UNITS/ML SUSP 5 ML ORAL.SUSP PO ×4 (09:14→21:12)
[2024-09-14] MEDS: FLUCONAZOLE 100 MG TABLET 200 MG PO (09:14)
[2024-09-14] MEDS: HEPARIN SODIUM 5,000 UNITS/ML VIAL 5000 UNITS SUB-Q ×2 (09:15→21:11)
[2024-09-14] MEDS: ASPIRIN 81 MG ENTERIC TABLET PO (09:15)
[2024-09-14] MEDS: ATORVASTATIN 20 MG TABLET PO (09:15)
[2024-09-14 09:17] LABS: Glucose Point of Care 95 mg/dl (65-105)
[2024-09-14] MEDS: INSULIN GLARGINE (*BKC) 100 UNITS/ML 20 UNITS SUB-Q (09:17)
--- NOTE | 2024-09-14 09:35 | P.CONIN_ITS ---
Assessment and Plan Assessment and plan (1) DKA (diabetic ketoacidosis): Code(s): E11.10 - Type 2 diabetes mellitus with ketoacidosis without coma Status: Acute Assessment and Plan: Patient was given IVF bolus and started infusion Patient was started Insulin infusion and Q1H glucose monitoring was done Serial labs were performed His anion gap has closed. And insulin requirement is down. I will transition him to subcutaneous insulin this time Continue IV fluids for now Start clear liquid diet and advance as tolerated (2) Dehydration: Code(s): E86.0 - Dehydration Status: Acute Assessment and Plan: Improving with IV fluids (3) Acute kidney injury: Code(s): N17.9 - Acute kidney failure, unspecified Status: Acute Assessment and Plan: Acute kidney injury likely secondary to dehydration hypovolemia Continue IV fluids Check urine electrolytes, CK, renal ultrasound Monitor urine output electrolytes and creatinine Consult nephrology (4) Dysphagia: Code(s): R13.10 - Dysphagia, unspecified Status: Acute Assessment and Plan: Likely secondary to significant oral candidiasis Check CT soft tissue neck to rule out any mechanical obstruction Patient is on ARB but tongue does not appear to be swollen to suggest angioedema (5) Thrush: Code(s): B37.0 - Candidal stomatitis Status: Acute Assessment and Plan: Patient is on nystatin swish and swallow I will order fluconazole due to severity of the disease and symptoms (6) Cardiomyopathy: Code(s): I42.9 - Cardiomyopathy, unspecified Status: Acute Assessment and Plan: Patient has history of cardiomyopathy was at this time he does not have any evidence of volume overload. He is dehydrated and I will continue IV fluids although at a lower rate at this time. Continue to hold amlodipine valsartan beta-denise Aldactone and Lasix Continue aspirin and atorvastatin Plan DVT prophylaxis -subcu heparin Nutrition -diet ordered Code Status - Full Code Total Critical Care Time - 30 minutes Due to a high probability of clinically significant, life threatening deterioration, the patient required my highest level of preparedness to intervene emergently and I personally spent this critical care time directly and personally managing the patient. This critical care time included obtaining a history; examining the patient; pulse oximetry; ordering and review of studies; arranging urgent treatment with development of a management plan; evaluation of patient's response to treatment; frequent reassessment; and discussions with other providers. It was exclusive of separately billable procedures and treating other patients and teaching time. Please see Assessment and Plan section and the rest of the note for further information on patient assessment and treatment Director Plans Consult Note Consult date: 09/14/24 Reason for consult: DKA, JEANETTE, hypertension HPI: Percy Kumar is a 69 year old male with past medical history of cardiomyopathy hypertension and hyperlipidemia presented to ER with chief complaint of inability to swallow, painful swallowing, excessive thirst and poor p.o. intake.. Patient states that from last 1 week he has had painful swallowing and has unable to eat anything except milk. He had been taking his medications regularly with milk. He states his tongue is coated. And it hurts and is uncomfortable when he swallows. His p.o. intake has been poor and he has been feeling excessively thirsty and peeing a lot than usual. He also had occasional lightheadedness.. He denies any abdominal pain nausea vomiting dysuria hematuria fever chest pain shortness a breath cough. All other systems were reviewed and were negative Workup in the [facility] He was afebrile on arrival. Blood pressures have been running in the low 90s systolic with a mean arterial pressure greater than 70. Labs are significant for WBC count 14.6, hemoglobin 16.5, MCV 100.2, PTT 50.0, PTT 21.5, INR 1.2, sodium 136, potassium 5.6, chloride 92, carbon dioxide 8, anion gap 36, BUN 74, creatinine 3.00, glucose 1110, lactic acid 4.9, calcium 10.6. 3+ glucose and 2+ ketones were noted on urinalysis. He received a 2 L normal saline bolus and is being admitted to the ICU in this setting on insulin drip. This morning he feels markedly better and denies any pain or shortness of breath. His issue with his tongue and swallowing remains although he has been NPO since admission. Review of Systems Review of Systems: All systems reviewed & are unremarkable except as noted in HPI and below (HPI) [facility] Past Medical History Medical History Cardiomyopathy Combined systolic and diastolic congestive heart failure Echocardiogram in April 2021 showed moderate to severe concentric left ventricular hypertrophy, mild enlargement of left ventricle cavity, mild global left ventricular systolic dysfunction, impaired diastolic relaxation grade 1, and an EF visually estimated at 40 to 45% with mild pulmonary hypertension. Dilated idiopathic cardiomyopathy Hypertension Peptic ulcer Surgical History Surgical History Finger amputation, no complication tip of left middle finger History of cardiac catheterization (05/2021) Widely patent coronary arteries with only minimal luminal irregularities, mild left ventricular dysfunction with segmental wall motion abnormalities, EF 45 to 50%. History of tonsillectomy Family History Family History Father Congestive heart failure Hypertension Cerebrovascular accident Mother Hypertension Heart disease Daughter Breast cancer Daughter Hodgkins disease Grandparent Cancer Diabetes mellitus Heart disease Social History Social History Social History: Surrogate medical decision maker: Spouse Code status: Full code. Smoking packs per day: 0.5 Smoking cigarettes per day: 10.0 Smoking status: Former smoker Smoking end date: 02/22/21 Alcohol intake: current Drinks per week: 2 Substance use: former Do You Feel Safe in your Home?: Yes Lack of Transportation: No Lack of Food: Never True Current Housing: I Have Housing Concerned About Future Housing: YES Difficulty Paying Gas/Electric Bills: No Difficulty Paying for Meds: No Currently Unemployed: YES Education: Trade/Vocational Certificate Difficulty w/ Childcare or Family Care: No Living arrangements: with family Spiritual care concerns: No Meds Home Medications and Allergies Home Medications Medication Instructions Recorded Confirmed Type metoprolol succinate 25 mg 50 mg PO QAM #30 tabs 02/12/21 09/13/24 Rx tablet,extended release 24 hr (Toprol XL) spironolactone 25 mg tablet 25 mg PO DAILY 02/12/21 09/13/24 History aspirin 81 mg tablet,delayed 81 mg PO DAILY 02/26/21 09/13/24 History release (Adult Low Dose Aspirin) atorvastatin 20 mg tablet 20 mg PO DAILY 02/26/21 09/13/24 History furosemide 20 mg tablet (Lasix) 20 mg PO DAILY PRN Edema #30 tabs 05/31/21 09/13/24 Rx amlodipine 10 mg-valsartan 320 mg 1 tablet PO DAILY 09/12/24 09/13/24 History tablet Allergies Allergy/AdvReac Type Severity Reaction Status Date / Time No Known Allergies Allergy Verified 09/12/24 18:35 Vital Signs Vital Signs - 24 hr 09/13/24 14:53 09/13/24 16:09 09/13/24 17:13 Temperature 36.4 C Pulse Rate 90 89 90 Respiratory Rate 18 20 Blood Pressure 111/73 92/63 L Pulse Oximetry 99 98 Oxygen Delivery Room Air 09/13/24 17:23 09/13/24 18:56 09/13/24 20:26 Temperature 36.4 C Pulse Rate 83 78 78 Respiratory Rate 20 19 22 H Blood Pressure 94/61 L 112/52 L 90/78 L Pulse Oximetry 100 100 97 Oxygen Delivery 09/13/24 20:32 09/13/24 22:00 09/13/24 22:00 Temperature 36.6 C Pulse Rate 78 75 77 Respiratory Rate 18 Blood Pressure 90/78 L 93/51 L Pulse Oximetry 97 Oxygen Delivery 09/13/24 23:00 09/13/24 23:27 09/14/24 00:00 Temperature 36.8 C Pulse Rate 69 69 69 Respiratory Rate 16 16 Blood Pressure 77/47 L 84/56 L Pulse Oximetry 95 94 Oxygen Delivery 09/14/24 00:00 09/14/24 00:00 09/14/24 01:00 Temperature 36.7 C Pulse Rate 69 71 81 Respiratory Rate 16 18 18 Blood Pressure 84/47 L 117/86 Pulse Oximetry 94 94 94 Oxygen Delivery Room Air 09/14/24 01:53 09/14/24 02:00 09/14/24 02:36 Temperature 36.3 C L Pulse Rate 78 73 77 Respiratory Rate 16 18 Blood Pressure 80/43 L 67/48 L Pulse Oximetry 98 93 Oxygen Delivery 09/14/24 02:42 09/14/24 03:00 09/14/24 03:45 Temperature Pulse Rate 78 77 79 Respiratory Rate 18 14 Blood Pressure 85/60 L 82/48 L Pulse Oximetry 100 97 Oxygen Delivery 09/14/24 03:51 09/14/24 04:00 09/14/24 05:00 Temperature 36.4 C L Pulse Rate 73 79 80 Respiratory Rate 14 16 16 Blood Pressure 81/49 L 79/55 L Pulse Oximetry 97 97 97 Oxygen Delivery Room Air 09/14/24 06:00 09/14/24 06:00 09/14/24 08:00 Temperature 36.9 C Pulse Rate 74 74 81 Respiratory Rate 16 16 Blood Pressure 74/43 L 114/64 Pulse Oximetry 98 100 Oxygen Delivery 09/14/24 08:00 09/14/24 09:24 09/14/24 09:25 Temperature 36.9 C Pulse Rate 74 Respiratory Rate 16 Blood Pressure 91/56 L 109/63 89/62 L Pulse Oximetry 95 Oxygen Delivery Exam Narrative: General: Pt is alert awake and in NAD Lungs/Chest: Trachea central Clear BS B/L, No crackles or wheezing. Cardiac: RRR. Normal S1 S2. No murmurs Circulation: Pedal pulses are intact and symmetrical. Abdomen: Normal bowel sounds.. Soft. NT. Patient has abdominal wall hernia Extremities: No clubbing, cyanosis or edema. Warm : May in place Neurologic: Follows commands. Moves all 4 extremities PERRL AO x3 Skin: No Rash HEENT: Significant thrush on the tongue Results Labs 09/14/24 02:42 09/14/24 06:08 Labs: Short CBC 09/13/24 09/14/24 Range/Units 17:25 02:42 WBC 14.6 H 12.7 H (4.5-10.0) K/mm3 Hgb 16.5 D 15.3 (14.0-18.0) g/dL Hct 51.3 44.7 (42.0-52.0) % Plt Count 398 H 320 (150-375) k/mm3 BMP 09/13/24 09/13/24 09/13/24 17:25 19:14 19:14 Sodium 136 L 136 L Cancelled Potassium 5.6 H 5.7 H Chloride 92 L Carbon Dioxide 8 L BUN 74 H D Creatinine 3.00 H Glucose 1110 H* Calcium 10.6 H 09/13/24 09/13/24 09/13/24 19:14 19:14 19:14 Sodium Potassium Cancelled Chloride 100 Cancelled Carbon Dioxide 9 L Cancelled BUN 78 H Creatinine Glucose Calcium 09/13/24 09/13/24 09/13/24 19:14 19:14 19:14 Sodium Potassium Chloride Carbon Dioxide BUN Cancelled Creatinine 3.10 H Cancelled Glucose 1058 H* Cancelled Calcium 9.0 09/13/24 09/13/24 09/14/24 19:14 22:48 02:42 Sodium 143 147 H Potassium 4.3 3.9 Chloride 104 111 H Carbon Dioxide 12 L 22 BUN 77 H 78 H Creatinine 2.50 H 2.50 H Glucose 723 H* 377 H Calcium Cancelled 9.3 9.3 09/14/24 06:08 Sodium 149 H Potassium 4.1 Chloride 114 H Carbon Dioxide 24 BUN 79 H Creatinine 2.40 H Glucose 169 H Calcium 9.2 Cardiac Enzymes 09/13/24 Range/Units 17:25 Troponin I < 0.012 (0.000-0.034) ng/mL Liver Function 09/13/24 Range/Units 17:25 Total Bilirubin 1.0 (0.2-1.3) mg/dL AST 17 (17-59) U/L ALT 28 (6-50) U/L Alkaline Phosphatase 82 (38-126) U/L Albumin 4.9 (3.5-5.1) g/dL Urine 09/13/24 Range/Units 17:26 Urine Color Yellow (Yellow) Urine Appearance Clear (Clear) Urine pH 5.0 (5.0-9.0) Ur Specific Dorothy 1.026 (1.001-1.035) Urine Protein Negative (Negative) mg/dL Urine Glucose (UA) 3+ H (Negative) mg/dL Hospitalist MIPS Advance Care Plan I have confirmed that the patient's Advanced Care Plan is present, code status is documented, or surrogate decision maker is listed in patient medical record.: Yes Medication Reconciliation I have utilized all available resources to obtain, update and review the patients current medications (includes all prescriptions, OTC, herbals, cannabis, and nutritional supplements).: Yes
--- NOTE | 2024-09-14 09:35 | P.CONNP_ITS ---
Assessment and Plan Assessment and plan (1) Acute kidney injury: Code(s): N17.9 - Acute kidney failure, unspecified Status: Acute Assessment and Plan: * normal creatinine (1.0mg/dl) earlier this year * suspect volume depletion/dehdydration as etiology * some improvement noted since admission * follow-up on urine studies, CPK, and renal ultrasound * follow repeat labs and UOP History of Present Illness Reason for Consult Consult date: 09/14/24 Reason for consult: acute renal failure Chief Complaint Chief complaint: Thrush, Hyperglycemia, DKA, Hyperkalemia Review of Systems Review of Systems: As per HPI. [facility] Past Medical History Medical History Cardiomyopathy Combined systolic and diastolic congestive heart failure Echocardiogram in April 2021 showed moderate to severe concentric left ventricular hypertrophy, mild enlargement of left ventricle cavity, mild global left ventricular systolic dysfunction, impaired diastolic relaxation grade 1, and an EF visually estimated at 40 to 45% with mild pulmonary hypertension. Dilated idiopathic cardiomyopathy Hypertension Peptic ulcer Surgical History Surgical History Finger amputation, no complication tip of left middle finger History of cardiac catheterization (05/2021) Widely patent coronary arteries with only minimal luminal irregularities, mild left ventricular dysfunction with segmental wall motion abnormalities, EF 45 to 50%. History of tonsillectomy Family History Family History Father Congestive heart failure Hypertension Cerebrovascular accident Mother Hypertension Heart disease Daughter Breast cancer Daughter Hodgkins disease Grandparent Cancer Diabetes mellitus Heart disease Social History Social History Social History: Surrogate medical decision maker: Spouse Code status: Full code. Smoking packs per day: 0.5 Smoking cigarettes per day: 10.0 Smoking status: Former smoker Smoking end date: 02/22/21 Alcohol intake: current Drinks per week: 2 Substance use: former Do You Feel Safe in your Home?: Yes Lack of Transportation: No Lack of Food: Never True Current Housing: I Have Housing Concerned About Future Housing: YES Difficulty Paying Gas/Electric Bills: No Difficulty Paying for Meds: No Currently Unemployed: YES Education: Trade/Vocational Certificate Difficulty w/ Childcare or Family Care: No Living arrangements: with family Spiritual care concerns: No Meds Home Medications and Allergies Home Medications Medication Instructions Recorded Confirmed Type metoprolol succinate 25 mg 50 mg PO QAM #30 tabs 02/12/21 09/13/24 Rx tablet,extended release 24 hr (Toprol XL) spironolactone 25 mg tablet 25 mg PO DAILY 02/12/21 09/13/24 History aspirin 81 mg tablet,delayed 81 mg PO DAILY 02/26/21 09/13/24 History release (Adult Low Dose Aspirin) atorvastatin 20 mg tablet 20 mg PO DAILY 02/26/21 09/13/24 History furosemide 20 mg tablet (Lasix) 20 mg PO DAILY PRN Edema #30 tabs 05/31/21 09/13/24 Rx amlodipine 10 mg-valsartan 320 mg 1 tablet PO DAILY 09/12/24 09/13/24 History tablet Allergies Allergy/AdvReac Type Severity Reaction Status Date / Time No Known Allergies Allergy Verified 09/12/24 18:35 Vital Signs Vital Signs Temp Pulse Resp BP Pulse Ox O2 Del Method 09/14/24 09:25 89/62 L 09/14/24 09:24 109/63 09/14/24 08:00 98.4 F 74 16 91/56 L 95 09/14/24 08:00 98.4 F 81 16 114/64 100 09/14/24 06:00 74 16 74/43 L 98 09/14/24 06:00 74 09/14/24 05:00 80 16 79/55 L 97 09/14/24 04:00 97.5 F L 79 16 81/49 L 97 09/14/24 03:51 73 14 97 Room Air 09/14/24 03:45 79 09/14/24 03:00 77 14 82/48 L 97 09/14/24 02:42 78 18 85/60 L 100 09/14/24 02:36 77 18 67/48 L 93 09/14/24 02:00 97.3 F L 73 16 80/43 L 98 09/14/24 01:53 78 09/14/24 01:00 81 18 117/86 94 09/14/24 00:00 98.1 F 71 18 84/47 L 94 09/14/24 00:00 69 16 94 Room Air 09/14/24 00:00 69 09/13/24 23:27 69 16 84/56 L 94 09/13/24 23:00 98.2 F 69 16 77/47 L 95 09/13/24 22:00 97.9 F 77 18 93/51 L 97 09/13/24 22:00 75 09/13/24 20:32 78 90/78 L 09/13/24 20:26 97.6 F 78 22 H 90/78 L 97 09/13/24 18:56 78 19 112/52 L 100 09/13/24 17:23 83 20 94/61 L 100 09/13/24 17:13 90 09/13/24 16:09 89 20 92/63 L 98 09/13/24 14:53 97.6 F 90 18 111/73 99 Room Air Exam Narrative: GENERAL APPEARANCE: well developed well nourished male in no acute distress HEENT: normocephalic, atraumatic, normal conjunctiva and sclera, nares patient NECK: no lymphadenopathy, thyromegaly, or JVD MOUTH: normal lips, teeth, and gums; + oropharyngeal thrush CARDIOVASCULAR: RRR, normal S1 and S2, no rub RESPIRATORY: clear to auscultation ABDOMEN: soft, nontender, nondistended, positive bowel sounds present EXTREMITIES: no evidence of cyanosis, clubbing, or edema NEUROLOGICAL: alert and oriented x 3; CN II - XII intact bilaterally; no focal deficits noted Results Lab Results 09/14/24 02:42 09/14/24 06:08 Lab results: Most recent lab results Calcium 9.2 mg/dL (8.4-10.2) 09/14/24 06:08 Phosphorus 11.4 mg/dL (2.5-4.5) H 09/13/24 17:25 Magnesium 3.7 mg/dL (1.6-2.3) H 09/14/24 02:42 Urine Creatinine 270.6 mg/dL 09/14/24 10:13
[2024-09-14 09:38] LABS: Creatine Kinase 70 U/L (55-170)
[2024-09-14 09:59] LABS: Procalcitonin 0.3 ng/mL
[2024-09-14 10:15] LABS: Glucose Point of Care 163 mg/dl (65-105)
[2024-09-14] MEDS: SODIUM CHLORIDE 0.45% 1,000 ML 75 ML IV CONT (10:19)
[2024-09-14 10:38] LABS: Creatinine Urine 270.6 mg/dL
[2024-09-14 10:50] LABS: Sodium Urine Random 35 meq/L
[2024-09-14 10:55] LABS: Total Protein Urine Random 19 mg/dL; Urea Random Urine 1332 MG/DL
[2024-09-14 11:10] LABS: Glucose Point of Care 179 mg/dl (65-105)
[2024-09-14 11:34] LABS: Creatinine Urine 268.4 mg/dL; Eosinophil Urine None Seen % (None Seen); Total Protein Urine Random 18 mg/dL; Ur Ttl Prot Creatinine Ratio 0.07 mg/mg (0-0.20); Urine Eos QC 2nd Tech Confirmed
[2024-09-14 11:36] LABS: Anion Gap 13 mmol/L (4-12); Blood Urea Nitrogen 78 mg/dL (9-20); Calcium 9.1 mg/dL (8.4-10.2); Carbon Dioxide 21 mmol/L (22-30); Chloride 113 mmol/L (98-107); Estimated CRCL calculation 37 ml/min; Estimated Glomerular Filt Rate 41; Glucose 186 mg/dL (65-110); Potassium 4.6 mmol/L (3.4-5.0); Sodium 147 mmol/L (137-145)
[2024-09-14 11:38] LABS: MRSA (PCR) NOT DETECTED (NOT DETECTE)
[2024-09-14] MEDS: INSULIN ASPART (*BKC) 100 UNITS/ML SUB-Q ×4 (11:38→21:12)
[2024-09-14 12:08] LABS: Glucose Point of Care 234 mg/dl (65-105)
--- NOTE | 2024-09-14 15:13 | P.PNIM_ITS ---
Progress Note: A&P Assessment and Plan (1) Diabetic ketoacidosis: Code(s): E11.10 - Type 2 diabetes mellitus with ketoacidosis without coma Status: Acute Assessment and Plan: Patient presents with severe hyperglycemia (1110), ketonuria, and elevated anion gap. Patient treated with insulin drip. now off After closure of anion gap. Placed on Lantus and NovoLog healthcare facility administrator to see (2) New onset type 2 diabetes mellitus: Code(s): E11.9 - Type 2 diabetes mellitus without complications Status: Acute Assessment and Plan: Hemoglobin A1c 12.8 Initially was high on insulin infusion Now on subcu insulin healthcare facility administrator see (3) Acute kidney injury: Code(s): N17.9 - Acute kidney failure, unspecified Status: Acute Assessment and Plan: Acute kidney injury is likely due to profound dehydration in addition to diuretic and ARB use. * Received 2 L normal saline in the ED; continue IV fluid rehydration per DKA protocol. was orthostatic and continue IV fluid resuscitation Blood pressures improved Creatinine slowly improving admission creatinine of 3 now down to 2 Now Renal ultrasound Nephrology consult (4) Electrolyte abnormality: Code(s): E87.8 - Other disorders of electrolyte and fluid balance, not elsewhere classified Status: Acute Assessment and Plan: Including a sodium of 136 (152 when correcting for glucose), potassium 5.6, chloride 92, calcium 10.6. still mildly hypernatremic Continue fluid resuscitation as ordered (5) Lactic acidosis: Code(s): E87.20 - Acidosis, unspecified Status: Acute Assessment and Plan: Initial lactic acid was 4.9 and is 3.0 after 2 L bolus Slowly improving lactic acid (6) Thrush: Code(s): B37.0 - Candidal stomatitis Status: Acute Assessment and Plan: Likely due to uncontrolled hyperglycemia. * Nystatin swish and swallow given reports of sore throat as well. fluconazole ordered (7) Combined systolic and diastolic congestive heart failure: Code(s): I50.40 - Unspecified combined systolic (congestive) and diastolic (congestive) heart failure Status: Acute Assessment and Plan: Idiopathic dilated cardiomyopathy diagnosed in 2020 with an EF of 40 to 45%. * Avoid over-hydration and monitor volume status with I/O and daily weights. diuretics on hold (8) Hypertension: Qualifiers: Hypertension type: essential hypertension Qualified Code(s): I10 - Essential (primary) hypertension Code(s): I10 - Essential (primary) hypertension Status: Chronic Assessment and Plan: Blood pressures have been running at the low end of normal. blood pressure on hold IV fluid to continue (9) Dysphagia: Code(s): R13.10 - Dysphagia, unspecified Status: Acute Assessment and Plan: CT neck without any obvious finding Plan DVT prophylaxis subQ heparin Code status full code Subjective Date/time seen: 09/14/24 15:13 Interval history: no overnight events. Off insulin drip. Feeling better. Blood pressure is improved. No chest pain or shortness of breath. Discussed with nursing staff. Labs reviewed. Review of Systems Review of Systems: All systems reviewed & are unremarkable except as noted in HPI and below (HPI) Exam Narrative: General: Pt is alert awake and in NAD Lungs/Chest: Trachea central Clear BS B/L, No crackles or wheezing. Cardiac: RRR. Normal S1 S2. No murmurs Circulation: Pedal pulses are intact and symmetrical. Abdomen: Normal bowel sounds.. Soft. NT. Patient has abdominal wall hernia Extremities: No clubbing, cyanosis or edema. Warm : May in place Neurologic: Follows commands. Moves all 4 extremities PERRL AO x3 Skin: No Rash Objective Data Vital Signs Vital Signs: Vital Signs - 24 hr 09/13/24 16:09 09/13/24 17:13 09/13/24 17:23 Temperature Pulse Rate 89 90 83 Respiratory Rate 20 20 Blood Pressure 92/63 L 94/61 L Pulse Oximetry 98 100 Oxygen Delivery 09/13/24 18:56 09/13/24 20:26 09/13/24 20:32 Temperature 97.6 F Pulse Rate 78 78 78 Respiratory Rate 19 22 H Blood Pressure 112/52 L 90/78 L 90/78 L Pulse Oximetry 100 97 Oxygen Delivery 09/13/24 22:00 09/13/24 22:00 09/13/24 23:00 Temperature 97.9 F 98.2 F Pulse Rate 75 77 69 Respiratory Rate 18 16 Blood Pressure 93/51 L 77/47 L Pulse Oximetry 97 95 Oxygen Delivery 09/13/24 23:27 09/14/24 00:00 09/14/24 00:00 Temperature Pulse Rate 69 69 69 Respiratory Rate 16 16 Blood Pressure 84/56 L Pulse Oximetry 94 94 Oxygen Delivery Room Air 09/14/24 00:00 09/14/24 01:00 09/14/24 01:53 Temperature 98.1 F Pulse Rate 71 81 78 Respiratory Rate 18 18 Blood Pressure 84/47 L 117/86 Pulse Oximetry 94 94 Oxygen Delivery 09/14/24 02:00 09/14/24 02:36 09/14/24 02:42 Temperature 97.3 F L Pulse Rate 73 77 78 Respiratory Rate 16 18 18 Blood Pressure 80/43 L 67/48 L 85/60 L Pulse Oximetry 98 93 100 Oxygen Delivery 09/14/24 03:00 09/14/24 03:45 09/14/24 03:51 Temperature Pulse Rate 77 79 73 Respiratory Rate 14 14 Blood Pressure 82/48 L Pulse Oximetry 97 97 Oxygen Delivery Room Air 09/14/24 04:00 09/14/24 05:00 09/14/24 06:00 Temperature 97.5 F L Pulse Rate 79 80 74 Respiratory Rate 16 16 Blood Pressure 81/49 L 79/55 L Pulse Oximetry 97 97 Oxygen Delivery 09/14/24 06:00 09/14/24 08:00 09/14/24 08:00 Temperature 98.4 F 98.4 F Pulse Rate 74 81 74 Respiratory Rate 16 16 16 Blood Pressure 74/43 L 114/64 91/56 L Pulse Oximetry 98 100 95 Oxygen Delivery 09/14/24 09:24 09/14/24 09:25 09/14/24 08:00 Temperature Pulse Rate 73 Respiratory Rate Blood Pressure 109/63 89/62 L Pulse Oximetry Oxygen Delivery 09/14/24 08:00 09/14/24 10:00 09/14/24 10:00 Temperature 97.7 F Pulse Rate 81 83 Respiratory Rate 13 Blood Pressure 107/68 Pulse Oximetry 97 Oxygen Delivery Room Air 09/14/24 12:00 09/14/24 12:00 09/14/24 12:00 Temperature 98.4 F Pulse Rate 74 81 Respiratory Rate 16 Blood Pressure 96/57 L Pulse Oximetry Oxygen Delivery Room Air 09/14/24 14:00 Temperature Pulse Rate 78 Respiratory Rate Blood Pressure Pulse Oximetry Oxygen Delivery Intake/Output Intake/Output: Intake & Output 09/11/24 09/12/24 09/13/24 09/14/24 23:59 23:59 23:59 23:59 Intake Total 3078.3 3267.0 Output Total 450 650 Balance 2628.3 2617.0 Meds/Results Medications: Active Medications Generic Name Dose Route Start Last Admin Trade Name Freq PRN Reason Stop Dose Admin Acetaminophen 650 mg 09/13/24 19:09 Acetaminophen 325 Mg Tablet PO Q6H PRN Mild Pain (1-3) or Fever Aspirin 81 mg 09/14/24 09:00 09/14/24 09:15 Aspirin 81 Mg Enteric Tablet PO 81 mg DAILY FRANCK Administration Atorvastatin Calcium 20 mg 09/14/24 09:00 09/14/24 09:15 Atorvastatin 20 Mg Tablet PO 20 mg DAILY FRANCK Administration Dextrose 12.5 gm 09/13/24 19:09 Dextrose 50% 25 Gm/50 Ml Syringe IV PUSH PRN PRN Hypoglycemia Protocol Fluconazole 100 mg 09/15/24 09:00 Fluconazole 100 Mg Tablet PO 09/21/24 09:01 QAM [facility] Glucagon 1 mg 09/13/24 19:09 Glucagon For Inj 1 Mg Vial IM PRN PRN Hypoglycemia Protocol Glucose 15 gm 09/13/24 19:09 Glucose Oral Gel 15 Gm Of Glucse In 37.5 Gm Tube PO PRN PRN Hypoglycemia Protocol Heparin Sodium (Porcine) 5,000 units 09/14/24 09:00 09/14/24 09:15 Heparin Sodium 5,000 Units/Ml Vial SUB-Q 5,000 units Q12HR FRANCK Administration Dextrose 1,000 mls @ 100 mls/hr 09/13/24 19:09 Dextrose 5% 1,000 Ml IVPB PRN PRN Hypoglycemia Protocol Sodium Chloride 1,000 mls @ 75 mls/hr 09/14/24 09:00 09/14/24 10:19 Sodium Chloride 0.45% IV CONT 09/15/24 08:59 75 mls/hr .[id number] FRANCK Administration Insulin Aspart 4 units 09/14/24 12:00 09/14/24 11:38 Insulin Aspart (*Bkc) 100 Units/Ml SUB-Q 4 units TIDWM [facility] Administration Insulin Aspart 3 - 6 units 09/14/24 12:00 09/14/24 11:33 Insulin Aspart (*Bkc) 100 Units/Ml SUB-Q Not Given TIDWM [facility] Protocol Insulin Aspart 1 - 3 units 09/14/24 21:00 Insulin Aspart (*Bkc) 100 Units/Ml SUB-Q HS [facility] Protocol Insulin Glargine 20 units 09/14/24 09:05 09/14/24 09:17 Insulin Glargine (*Bkc) 100 Units/Ml SUB-Q 20 units QAM [facility] Administration Nystatin 5 ml 09/13/24 21:00 09/14/24 12:49 Nystatin 100,000 Units/Ml Susp 5 Ml Oral.Susp PO 5 ml QID [facility]ANCK Administration Ondansetron HCl 4 mg 09/13/24 21:00 09/13/24 21:12 Ondansetron Inj 4 Mg/2 Ml Vial IV PUSH 4 mg Q6H PRN Administration Nausea And Vomiting Radiology Results: ITS Impressions Neck/Chest CT 09/14/24 12:52 IMPRESSION: 1. No etiology for the patient's symptoms. 2. Left adrenal masses measuring up to 18 mm. 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 Labs Labs: Laboratory Results - last 24 hr 09/13/24 09/13/24 09/13/24 17:25 17:25 17:26 WBC 14.6 H RBC 5.12 Hgb 16.5 D Hct 51.3 MCV 100.2 H MCH 32.2 MCHC 32.2 RDW 12.5 Plt Count 398 H MPV 11.4 H Immature Gran % (Auto) 0.7 H Neut % (Auto) 88.6 H Lymph % (Auto) 5.0 L [place] % (Auto) 5.5 Eos % (Auto) 0.0 Baso % (Auto) 0.2 Lymph # (Auto) 0.73 L [place] # (Auto) 0.8 H Eos # (Auto) 0.0 Baso # (Auto) 0.0 Abs Immat Gran (auto) 0.10 H Absolute Neuts (auto) 13.0 H Absolute Nucleated RBC 0.000 Nucleated RBC % 0.0 PT INR APTT D-Dimer Cancelled VBG pH VBG pCO2 VBG pO2 VBG HCO3 O2 Delivery Device O2 Liters/Min FiO2 Sodium 136 L Potassium 5.6 H Chloride 92 L Carbon Dioxide 8 L Anion Gap 36 H BUN 74 H D Creatinine 3.00 H Estim Creat Clear Calc 28 Estimated GFR 25 L Glucose 1110 H* POC Capillary Glucose Hemoglobin A1c 12.8 H Lactic Acid 4.9 H* Calcium 10.6 H Phosphorus 11.4 H Magnesium 3.7 H 3.7 H Total Bilirubin 1.0 AST 17 ALT 28 Alkaline Phosphatase 82 Total Creatine Kinase Troponin I < 0.012 NT-Pro-B Natriuret Pep 59 Total Protein 8.0 Albumin 4.9 Beta-Hydroxybutyrate/Acetoacetate Procalcitonin TSH (Reflex) Urine Color Yellow Urine Appearance Clear Urine pH 5.0 Ur Specific [place] 1.026 Urine Protein Negative Urine Glucose (UA) 3+ H Urine Ketones 2+ H Ur Blood (Man) Negative Urine Nitrate Negative Urine Bilirubin Negative Urine Urobilinogen 0.2 Leukocyte Esterase Rfl Negative Urine Eosinophils U Random Total Protein Ur Random Sodium Ur Random Urea Urine Creatinine Protein/Creat Ratio 2 Nasal MRSA (PCR) Influenza A (RT-PCR) Negative Influenza B (RT-PCR) Negative RSV (RT-PCR) Negative SARS-CoV-2 RNA (RT-PCR) Negative Group A Strep (PCR) 09/13/24 09/13/24 09/13/24 17:32 18:09 19:14 WBC RBC Hgb Hct MCV MCH MCHC RDW Plt Count MPV Immature Gran % (Auto) Neut % (Auto) Lymph % (Auto) [place] % (Auto) Eos % (Auto) Baso % (Auto) Lymph # (Auto) [place] # (Auto) Eos # (Auto) Baso # (Auto) Abs Immat Gran (auto) Absolute Neuts (auto) Absolute Nucleated RBC Nucleated RBC % PT 15.0 H INR 1.2 APTT 21.5 L D-Dimer VBG pH 7.168 L* VBG pCO2 30.1 L* VBG pO2 28.5 L VBG HCO3 10.7 L O2 Delivery Device Not Reportable O2 Liters/Min Not Reportable FiO2 21 Sodium 136 L Potassium Chloride Carbon Dioxide Anion Gap BUN Creatinine Estim Creat Clear Calc Estimated GFR Glucose POC Capillary Glucose Hemoglobin A1c Lactic Acid Calcium Phosphorus Magnesium Total Bilirubin AST ALT Alkaline Phosphatase Total Creatine Kinase Troponin I NT-Pro-B Natriuret Pep Total Protein Albumin Beta-Hydroxybutyrate/Acetoacetate Procalcitonin TSH (Reflex) Urine Color Urine Appearance Urine pH Ur Specific [place] Urine Protein Urine Glucose (UA) Urine Ketones Ur Blood (Man) Urine Nitrate Urine Bilirubin Urine Urobilinogen Leukocyte Esterase Rfl Urine Eosinophils U Random Total Protein Ur Random Sodium Ur Random Urea Urine Creatinine Protein/Creat Ratio 2 Nasal MRSA (PCR) Influenza A (RT-PCR) Influenza B (RT-PCR) RSV (RT-PCR) SARS-CoV-2 RNA (RT-PCR) Group A Strep (PCR) Not detected 09/13/24 09/13/24 09/13/24 19:14 19:14 19:14 WBC RBC Hgb Hct MCV MCH MCHC RDW Plt Count MPV Immature Gran % (Auto) Neut % (Auto) Lymph % (Auto) [place] % (Auto) Eos % (Auto) Baso % (Auto) Lymph # (Auto) [place] # (Auto) Eos # (Auto) Baso # (Auto) Abs Immat Gran (auto) Absolute Neuts (auto) Absolute Nucleated RBC Nucleated RBC % PT INR APTT D-Dimer VBG pH VBG pCO2 VBG pO2 VBG HCO3 O2 Delivery Device O2 Liters/Min FiO2 Sodium Cancelled Potassium 5.7 H Cancelled Chloride 100 Cancelled Carbon Dioxide 9 L Anion Gap BUN Creatinine Estim Creat Clear Calc Estimated GFR Glucose POC Capillary Glucose Hemoglobin A1c Lactic Acid Calcium Phosphorus Magnesium Total Bilirubin AST ALT Alkaline Phosphatase Total Creatine Kinase Troponin I NT-Pro-B Natriuret Pep Total Protein Albumin Beta-Hydroxybutyrate/Acetoacetate Procalcitonin TSH (Reflex) Urine Color Urine Appearance Urine pH Ur Specific [place] Urine Protein Urine Glucose (UA) Urine Ketones Ur Blood (Man) Urine Nitrate Urine Bilirubin Urine Urobilinogen Leukocyte Esterase Rfl Urine Eosinophils U Random Total Protein Ur Random Sodium Ur Random Urea Urine Creatinine Protein/Creat Ratio 2 Nasal MRSA (PCR) Influenza A (RT-PCR) Influenza B (RT-PCR) RSV (RT-PCR) SARS-CoV-2 RNA (RT-PCR) Group A Strep (PCR) 09/13/24 09/13/24 09/13/24 19:14 19:14 19:14 WBC RBC Hgb Hct MCV MCH MCHC RDW Plt Count MPV Immature Gran % (Auto) Neut % (Auto) Lymph % (Auto) [place] % (Auto) Eos % (Auto) Baso % (Auto) Lymph # (Auto) [place] # (Auto) Eos # (Auto) Baso # (Auto) Abs Immat Gran (auto) Absolute Neuts (auto) Absolute Nucleated RBC Nucleated RBC % PT INR APTT D-Dimer VBG pH VBG pCO2 VBG pO2 VBG HCO3 O2 Delivery Device O2 Liters/Min FiO2 Sodium Potassium Chloride Carbon Dioxide Cancelled Anion Gap 27 H Cancelled BUN 78 H Cancelled Creatinine 3.10 H Estim Creat Clear Calc Estimated GFR Glucose POC Capillary Glucose Hemoglobin A1c Lactic Acid Calcium Phosphorus Magnesium Total Bilirubin AST ALT Alkaline Phosphatase Total Creatine Kinase Troponin I NT-Pro-B Natriuret Pep Total Protein Albumin Beta-Hydroxybutyrate/Acetoacetate Procalcitonin TSH (Reflex) Urine Color Urine Appearance Urine pH Ur Specific [place] Urine Protein Urine Glucose (UA) Urine Ketones Ur Blood (Man) Urine Nitrate Urine Bilirubin Urine Urobilinogen Leukocyte Esterase Rfl Urine Eosinophils U Random Total Protein Ur Random Sodium Ur Random Urea Urine Creatinine Protein/Creat Ratio 2 Nasal MRSA (PCR) Influenza A (RT-PCR) Influenza B (RT-PCR) RSV (RT-PCR) SARS-CoV-2 RNA (RT-PCR) Group A Strep (PCR) 09/13/24 09/13/24 09/13/24 19:14 19:14 19:14 WBC RBC Hgb Hct MCV MCH MCHC RDW Plt Count MPV Immature Gran % (Auto) Neut % (Auto) Lymph % (Auto) [place] % (Auto) Eos % (Auto) Baso % (Auto) Lymph # (Auto) [place] # (Auto) Eos # (Auto) Baso # (Auto) Abs Immat Gran (auto) Absolute Neuts (auto) Absolute Nucleated RBC Nucleated RBC % PT INR APTT D-Dimer VBG pH VBG pCO2 VBG pO2 VBG HCO3 O2 Delivery Device O2 Liters/Min FiO2 Sodium Potassium Chloride Carbon Dioxide Anion Gap BUN Creatinine Cancelled Estim Creat Clear Calc 27 Cancelled Estimated GFR 24 L Cancelled Glucose 1058 H* POC Capillary Glucose Hemoglobin A1c Lactic Acid Calcium Phosphorus Magnesium Total Bilirubin AST ALT Alkaline Phosphatase Total Creatine Kinase Troponin I NT-Pro-B Natriuret Pep Total Protein Albumin Beta-Hydroxybutyrate/Acetoacetate Procalcitonin TSH (Reflex) Urine Color Urine Appearance Urine pH Ur Specific [place] Urine Protein Urine Glucose (UA) Urine Ketones Ur Blood (Man) Urine Nitrate Urine Bilirubin Urine Urobilinogen Leukocyte Esterase Rfl Urine Eosinophils U Random Total Protein Ur Random Sodium Ur Random Urea Urine Creatinine Protein/Creat Ratio 2 Nasal MRSA (PCR) Influenza A (RT-PCR) Influenza B (RT-PCR) RSV (RT-PCR) SARS-CoV-2 RNA (RT-PCR) Group A Strep (PCR) 09/13/24 09/13/24 09/13/24 19:14 19:14 19:38 WBC RBC Hgb Hct MCV MCH MCHC RDW Plt Count MPV Immature Gran % (Auto) Neut % (Auto) Lymph % (Auto) [place] % (Auto) Eos % (Auto) Baso % (Auto) Lymph # (Auto) [place] # (Auto) Eos # (Auto) Baso # (Auto) Abs Immat Gran (auto) Absolute Neuts (auto) Absolute Nucleated RBC Nucleated RBC % PT INR APTT D-Dimer VBG pH VBG pCO2 VBG pO2 VBG HCO3 O2 Delivery Device O2 Liters/Min FiO2 Sodium Potassium Chloride Carbon Dioxide Anion Gap BUN Creatinine Estim Creat Clear Calc Estimated GFR Glucose Cancelled POC Capillary Glucose Hemoglobin A1c Lactic Acid 3.0 H Calcium 9.0 Cancelled Phosphorus Magnesium Total Bilirubin AST ALT Alkaline Phosphatase Total Creatine Kinase Troponin I NT-Pro-B Natriuret Pep Total Protein Albumin Beta-Hydroxybutyrate/Acetoacetate 8.82 H Procalcitonin TSH (Reflex) Urine Color Urine Appearance Urine pH Ur Specific [place] Urine Protein Urine Glucose (UA) Urine Ketones Ur Blood (Man) Urine Nitrate Urine Bilirubin Urine Urobilinogen Leukocyte Esterase Rfl Urine Eosinophils U Random Total Protein Ur Random Sodium Ur Random Urea Urine Creatinine Protein/Creat Ratio 2 Nasal MRSA (PCR) Influenza A (RT-PCR) Influenza B (RT-PCR) RSV (RT-PCR) SARS-CoV-2 RNA (RT-PCR) Group A Strep (PCR) 09/13/24 09/13/24 09/14/24 22:08 22:48 00:53 WBC RBC Hgb Hct MCV MCH MCHC RDW Plt Count MPV Immature Gran % (Auto) Neut % (Auto) Lymph % (Auto) [place] % (Auto) Eos % (Auto) Baso % (Auto) Lymph # (Auto) [place] # (Auto) Eos # (Auto) Baso # (Auto) Abs Immat Gran (auto) Absolute Neuts (auto) Absolute Nucleated RBC Nucleated RBC % PT INR APTT D-Dimer VBG pH VBG pCO2 VBG pO2 VBG HCO3 O2 Delivery Device O2 Liters/Min FiO2 Sodium 143 Potassium 4.3 Chloride 104 Carbon Dioxide 12 L Anion Gap 27 H BUN 77 H Creatinine 2.50 H Estim Creat Clear Calc 30 Estimated GFR 31 L Glucose 723 H* POC Capillary Glucose > 500 H* > 500 H* Hemoglobin A1c Lactic Acid 4.0 H Calcium 9.3 Phosphorus Magnesium Total Bilirubin AST ALT Alkaline Phosphatase Total Creatine Kinase Troponin I NT-Pro-B Natriuret Pep Total Protein Albumin Beta-Hydroxybutyrate/Acetoacetate Procalcitonin TSH (Reflex) Urine Color Urine Appearance Urine pH Ur Specific [place] Urine Protein Urine Glucose (UA) Urine Ketones Ur Blood (Man) Urine Nitrate Urine Bilirubin Urine Urobilinogen Leukocyte Esterase Rfl Urine Eosinophils U Random Total Protein Ur Random Sodium Ur Random Urea Urine Creatinine Protein/Creat Ratio 2 Nasal MRSA (PCR) Influenza A (RT-PCR) Influenza B (RT-PCR) RSV (RT-PCR) SARS-CoV-2 RNA (RT-PCR) Group A Strep (PCR) 09/14/24 09/14/24 09/14/24 02:03 02:42 03:04 WBC 12.7 H RBC 4.73 Hgb 15.3 Hct 44.7 MCV 94.5 D MCH 32.3 MCHC 34.2 RDW 12.3 Plt Count 320 MPV 10.8 H Immature Gran % (Auto) 0.5 Neut % (Auto) 83.0 H Lymph % (Auto) 6.4 L [place] % (Auto) 9.9 H Eos % (Auto) 0.0 Baso % (Auto) 0.2 Lymph # (Auto) 0.82 L [place] # (Auto) 1.3 H Eos # (Auto) 0.0 Baso # (Auto) 0.0 Abs Immat Gran (auto) 0.06 H Absolute Neuts (auto) 10.6 H Absolute Nucleated RBC 0.000 Nucleated RBC % 0.0 PT INR APTT D-Dimer VBG pH VBG pCO2 VBG pO2 VBG HCO3 O2 Delivery Device O2 Liters/Min FiO2 Sodium 147 H Potassium 3.9 Chloride 111 H Carbon Dioxide 22 Anion Gap 14 H BUN 78 H Creatinine 2.50 H Estim Creat Clear Calc 30 Estimated GFR 31 L Glucose 377 H POC Capillary Glucose 426 H 322 H Hemoglobin A1c Lactic Acid 3.0 H Calcium 9.3 Phosphorus Magnesium 3.7 H Total Bilirubin AST ALT Alkaline Phosphatase Total Creatine Kinase 70 Troponin I NT-Pro-B Natriuret Pep Total Protein Albumin Beta-Hydroxybutyrate/Acetoacetate Procalcitonin 0.3 TSH (Reflex) 1.090 Urine Color Urine Appearance Urine pH Ur Specific [place] Urine Protein Urine Glucose (UA) Urine Ketones Ur Blood (Man) Urine Nitrate Urine Bilirubin Urine Urobilinogen Leukocyte Esterase Rfl Urine Eosinophils U Random Total Protein Ur Random Sodium Ur Random Urea Urine Creatinine Protein/Creat Ratio 2 Nasal MRSA (PCR) Influenza A (RT-PCR) Influenza B (RT-PCR) RSV (RT-PCR) SARS-CoV-2 RNA (RT-PCR) Group A Strep (PCR) 09/14/24 09/14/24 09/14/24 04:03 05:06 06:08 WBC RBC Hgb Hct MCV MCH MCHC RDW Plt Count MPV Immature Gran % (Auto) Neut % (Auto) Lymph % (Auto) [place] % (Auto) Eos % (Auto) Baso % (Auto) Lymph # (Auto) [place] # (Auto) Eos # (Auto) Baso # (Auto) Abs Immat Gran (auto) Absolute Neuts (auto) Absolute Nucleated RBC Nucleated RBC % PT INR APTT D-Dimer VBG pH VBG pCO2 VBG pO2 VBG HCO3 O2 Delivery Device O2 Liters/Min FiO2 Sodium 149 H Potassium 4.1 Chloride 114 H Carbon Dioxide 24 Anion Gap 11 BUN 79 H Creatinine 2.40 H Estim Creat Clear Calc 31 Estimated GFR 33 L Glucose 169 H POC Capillary Glucose 274 H 225 H Hemoglobin A1c Lactic Acid Calcium 9.2 Phosphorus Magnesium Total Bilirubin AST ALT Alkaline Phosphatase Total Creatine Kinase Troponin I NT-Pro-B Natriuret Pep Total Protein Albumin Beta-Hydroxybutyrate/Acetoacetate Procalcitonin TSH (Reflex) Urine Color Urine Appearance Urine pH Ur Specific [place] Urine Protein Urine Glucose (UA) Urine Ketones Ur Blood (Man) Urine Nitrate Urine Bilirubin Urine Urobilinogen Leukocyte Esterase Rfl Urine Eosinophils U Random Total Protein Ur Random Sodium Ur Random Urea Urine Creatinine Protein/Creat Ratio 2 Nasal MRSA (PCR) Influenza A (RT-PCR) Influenza B (RT-PCR) RSV (RT-PCR) SARS-CoV-2 RNA (RT-PCR) Group A Strep (PCR) 09/14/24 09/14/24 09/14/24 06:17 07:32 08:10 WBC RBC Hgb Hct MCV MCH MCHC RDW Plt Count MPV Immature Gran % (Auto) Neut % (Auto) Lymph % (Auto) [place] % (Auto) Eos % (Auto) Baso % (Auto) Lymph # (Auto) [place] # (Auto) Eos # (Auto) Baso # (Auto) Abs Immat Gran (auto) Absolute Neuts (auto) Absolute Nucleated RBC Nucleated RBC % PT INR APTT D-Dimer VBG pH VBG pCO2 VBG pO2 VBG HCO3 O2 Delivery Device O2 Liters/Min FiO2 Sodium Potassium Chloride Carbon Dioxide Anion Gap BUN Creatinine Estim Creat Clear Calc Estimated GFR Glucose POC Capillary Glucose 180 H 146 H 128 H Hemoglobin A1c Lactic Acid Calcium Phosphorus Magnesium Total Bilirubin AST ALT Alkaline Phosphatase Total Creatine Kinase Troponin I NT-Pro-B Natriuret Pep Total Protein Albumin Beta-Hydroxybutyrate/Acetoacetate Procalcitonin TSH (Reflex) Urine Color Urine Appearance Urine pH Ur Specific [place] Urine Protein Urine Glucose (UA) Urine Ketones Ur Blood (Man) Urine Nitrate Urine Bilirubin Urine Urobilinogen Leukocyte Esterase Rfl Urine Eosinophils U Random Total Protein Ur Random Sodium Ur Random Urea Urine Creatinine Protein/Creat Ratio 2 Nasal MRSA (PCR) Influenza A (RT-PCR) Influenza B (RT-PCR) RSV (RT-PCR) SARS-CoV-2 RNA (RT-PCR) Group A Strep (PCR) 09/14/24 09/14/24 09/14/24 09:09 10:11 10:11 WBC RBC Hgb Hct MCV MCH MCHC RDW Plt Count MPV Immature Gran % (Auto) Neut % (Auto) Lymph % (Auto) [place] % (Auto) Eos % (Auto) Baso % (Auto) Lymph # (Auto) [place] # (Auto) Eos # (Auto) Baso # (Auto) Abs Immat Gran (auto) Absolute Neuts (auto) Absolute Nucleated RBC Nucleated RBC % PT INR APTT D-Dimer VBG pH VBG pCO2 VBG pO2 VBG HCO3 O2 Delivery Device O2 Liters/Min FiO2 Sodium Potassium Chloride Carbon Dioxide Anion Gap BUN Creatinine Estim Creat Clear Calc Estimated GFR Glucose POC Capillary Glucose 95 Hemoglobin A1c Lactic Acid Calcium Phosphorus Magnesium Total Bilirubin AST ALT Alkaline Phosphatase Total Creatine Kinase Troponin I NT-Pro-B Natriuret Pep Total Protein Albumin Beta-Hydroxybutyrate/Acetoacetate Procalcitonin TSH (Reflex) Urine Color Urine Appearance Urine pH Ur Specific [place] Urine Protein Urine Glucose (UA) Urine Ketones Ur Blood (Man) Urine Nitrate Urine Bilirubin Urine Urobilinogen Leukocyte Esterase Rfl Urine Eosinophils None seen U Random Total Protein 18 19 Ur Random Sodium Ur Random Urea 1332 Urine Creatinine 268.4 Protein/Creat Ratio 2 0.07 Nasal MRSA (PCR) Influenza A (RT-PCR) Influenza B (RT-PCR) RSV (RT-PCR) SARS-CoV-2 RNA (RT-PCR) Group A Strep (PCR) 09/14/24 09/14/24 09/14/24 10:12 10:13 11:06 WBC RBC Hgb Hct MCV MCH MCHC RDW Plt Count MPV Immature Gran % (Auto) Neut % (Auto) Lymph % (Auto) [place] % (Auto) Eos % (Auto) Baso % (Auto) Lymph # (Auto) [place] # (Auto) Eos # (Auto) Baso # (Auto) Abs Immat Gran (auto) Absolute Neuts (auto) Absolute Nucleated RBC Nucleated RBC % PT INR APTT D-Dimer VBG pH VBG pCO2 VBG pO2 VBG HCO3 O2 Delivery Device O2 Liters/Min FiO2 Sodium Potassium Chloride Carbon Dioxide Anion Gap BUN Creatinine Estim Creat Clear Calc Estimated GFR Glucose POC Capillary Glucose 163 H 179 H Hemoglobin A1c Lactic Acid Calcium Phosphorus Magnesium Total Bilirubin AST ALT Alkaline Phosphatase Total Creatine Kinase Troponin I NT-Pro-B Natriuret Pep Total Protein Albumin Beta-Hydroxybutyrate/Acetoacetate Procalcitonin TSH (Reflex) Urine Color Urine Appearance Urine pH Ur Specific [place] Urine Protein Urine Glucose (UA) Urine Ketones Ur Blood (Man) Urine Nitrate Urine Bilirubin Urine Urobilinogen Leukocyte Esterase Rfl Urine Eosinophils U Random Total Protein Ur Random Sodium 35 Ur Random Urea Urine Creatinine 270.6 Protein/Creat Ratio 2 Nasal MRSA (PCR) Not detected Influenza A (RT-PCR) Influenza B (RT-PCR) RSV (RT-PCR) SARS-CoV-2 RNA (RT-PCR) Group A Strep (PCR) 09/14/24 09/14/24 11:13 12:05 WBC RBC Hgb Hct MCV MCH MCHC RDW Plt Count MPV Immature Gran % (Auto) Neut % (Auto) Lymph % (Auto) [place] % (Auto) Eos % (Auto) Baso % (Auto) Lymph # (Auto) [place] # (Auto) Eos # (Auto) Baso # (Auto) Abs Immat Gran (auto) Absolute Neuts (auto) Absolute Nucleated RBC Nucleated RBC % PT INR APTT D-Dimer VBG pH VBG pCO2 VBG pO2 VBG HCO3 O2 Delivery Device O2 Liters/Min FiO2 Sodium 147 H Potassium 4.6 Chloride 113 H Carbon Dioxide 21 L Anion Gap 13 H BUN 78 H Creatinine 2.00 H Estim Creat Clear Calc 37 Estimated GFR 41 L Glucose 186 H POC Capillary Glucose 234 H Hemoglobin A1c Lactic Acid Calcium 9.1 Phosphorus Magnesium Total Bilirubin AST ALT Alkaline Phosphatase Total Creatine Kinase Troponin I NT-Pro-B Natriuret Pep Total Protein Albumin Beta-Hydroxybutyrate/Acetoacetate Procalcitonin TSH (Reflex) Urine Color Urine Appearance Urine pH Ur Specific [place] Urine Protein Urine Glucose (UA) Urine Ketones Ur Blood (Man) Urine Nitrate Urine Bilirubin Urine Urobilinogen Leukocyte Esterase Rfl Urine Eosinophils U Random Total Protein Ur Random Sodium Ur Random Urea Urine Creatinine Protein/Creat Ratio 2 Nasal MRSA (PCR) Influenza A (RT-PCR) Influenza B (RT-PCR) RSV (RT-PCR) SARS-CoV-2 RNA (RT-PCR) Group A Strep (PCR)
--- NOTE | 2024-09-14 15:35 | PC.NURSE ---
This patient, Percy Kumar, was transferred to [[id number] ] on 09/14/24 at 1450. Personal belongings sent with patient. Report given to [Diana SALDANA ]. Appropriate documentation sent with patient.
[2024-09-14 16:24] LABS: Glucose Point of Care 375 mg/dl (65-105)
[2024-09-14 19:34] LABS: Glucose Point of Care 366 mg/dl (65-105)
[2024-09-15] VITALS (21 sets, daily range): BP systolic 85–113; BP diastolic 39–80; PULSE 86–110; RESP 16–20; TEMP 36.5–37.3; O2SAT 99–100; BMI 29.1
[2024-09-15 05:06] LABS: Basophils Absolute Auto 0.1 K/mm3 (0.0-0.1); Basophils Percent Auto 0.5 % (0.2-1.2); Eosinophils Absolute Auto 0.1 K/mm3 (0-0.3); Hematocrit 42.2 % (42.0-52.0); Hemoglobin 13.5 g/dL (14.0-18.0); Immature Granulocyte Absolute 0.05 K/mm3 (0.00-0.031); Immature Granulocyte Percent A 0.4 % (0-0.5); Lymphocytes Absolute Auto 1.98 K/mm3 (0.9-3.2); Lymphocytes Percent Auto 17.3 % (18.3-44.2); Mean Corpuscular Hemoglobin 31.4 pg (26-34); Mean Corpuscular Volume 98.1 fl (80-100); Mean Platelet Volume 11.2 fl (7.4-10.4); Monocytes Absolute Auto 1.1 K/mm3 (0.1-0.6); Monocytes Percent Auto 9.4 % (2.6-8.5); Neutrophils Absolute Auto 8.2 K/mm3 (1.3-6.7); Neutrophils Percent Auto 71.4 % (45.5-73.1); Platelet Count Result 269 k/mm3 (150-375); Red Cell Distribution Width 12.6 % (11.5-14.5); White Blood Count 11.4 K/mm3 (4.5-10.0)
[2024-09-15 05:24] LABS: Alanine Aminotransferase 15 U/L (6-50); Albumin Level 3.8 g/dL (3.5-5.1); Alkaline Phosphatase 67 U/L (38-126); Anion Gap 9 mmol/L (4-12); Aspartate Amino Transferase 18 U/L (17-59); Bilirubin,Total 1.1 mg/dL (0.2-1.3); Blood Urea Nitrogen 63 mg/dL (9-20); Calcium 8.8 mg/dL (8.4-10.2); Carbon Dioxide 23 mmol/L (22-30); Chloride 112 mmol/L (98-107); Estimated CRCL calculation 43 ml/min; Estimated Glomerular Filt Rate 49; Glucose 359 mg/dL (65-110); Magnesium 3.4 mg/dL (1.6-2.3); Potassium 4.3 mmol/L (3.4-5.0); Sodium 144 mmol/L (137-145)
[2024-09-15 08:14] LABS: Glucose Point of Care 399 mg/dl (65-105)
[2024-09-15] MEDS: FLUCONAZOLE 100 MG TABLET PO (09:01)
[2024-09-15] MEDS: ASPIRIN 81 MG ENTERIC TABLET PO (09:01)
[2024-09-15] MEDS: ATORVASTATIN 20 MG TABLET PO (09:01)
[2024-09-15] MEDS: NYSTATIN 100,000 UNITS/ML SUSP 5 ML ORAL.SUSP PO ×4 (09:01→20:48)
[2024-09-15] MEDS: HEPARIN SODIUM 5,000 UNITS/ML VIAL 5000 UNITS SUB-Q (09:02)
[2024-09-15] MEDS: INSULIN ASPART (*BKC) 100 UNITS/ML SUB-Q ×6 (09:08→16:46)
[2024-09-15] MEDS: INSULIN GLARGINE (*BKC) 100 UNITS/ML 20 UNITS SUB-Q (09:11)
--- NOTE | 2024-09-15 12:01 | PC.NURSE ---
Referal for MNT and DSMT completed and faxed to Dr. López.
[2024-09-15 12:09] LABS: Glucose Point of Care 382 mg/dl (65-105)
--- NOTE | 2024-09-15 12:36 | P.PNNP_ITS ---
Subjective Date/time seen: 09/15/24 12:36 Interval history: Follow-up for acute kidney injury/acute renal failure. Transferred out of the ICU yesterday; renal function/creatinine doing a bit better as noted by trend of labs; Exam Narrative: General: elderly but WD/WN male in NAD Heart: normal S1 and S2; no rub Lungs: clear to auscultation Abdomen: soft, nontender, nondistended, positive bowel sounds Extremities: no cyanosis or clubbing; no edema Skin: warm and dry Objective Data Vital Signs Vital Signs: Vital Signs Temp Pulse Resp BP Pulse Ox O2 Del Method 09/15/24 12:24 93/52 L 09/15/24 12:23 101/77 09/15/24 08:00 112/59 L 09/15/24 12:00 99.1 F 95 16 112/59 L 99 09/15/24 12:00 110 H 09/15/24 12:00 Room Air 09/15/24 10:00 97 09/15/24 08:00 Room Air 09/15/24 08:00 96 09/15/24 08:29 100 Room Air 09/15/24 08:00 98.8 F 93 18 112/62 100 09/15/24 05:49 90 09/15/24 04:42 97.7 F 88 20 103/45 L 100 09/15/24 04:00 86 20 100 Room Air 09/15/24 04:00 86 09/15/24 01:47 86 09/15/24 00:09 97.7 F 86 20 103/39 L 100 09/14/24 23:51 85 20 98 Room Air 09/14/24 23:50 85 09/14/24 21:38 89 09/14/24 20:00 90 20 98 Room Air 09/14/24 19:55 90 09/14/24 19:51 96/65 L 09/14/24 19:50 106/87 09/14/24 19:48 98.6 F 99 20 87/52 L 88 L 09/14/24 18:00 87 09/14/24 16:00 81 20 99 Room Air 09/14/24 16:00 85 09/14/24 15:08 98.6 F 81 20 104/62 99 Intake/Output Intake/Output: Intake & Output 10/09/13/24 09/14/24 09/15/24 23:59 23:59 23:59 23:59 Intake Total 3078.3 3267.0 2480 Output Total 450 650 51 Balance 2628.3 2617.0 2429 Meds/Results Medications: Active Medications Generic Name Dose Route Start Last Admin Trade Name Freq PRN Reason Stop Dose Admin Acetaminophen 650 mg 09/13/24 19:09 Acetaminophen 325 Mg Tablet PO Q6H PRN Mild Pain (1-3) or Fever Aspirin 81 mg 09/14/24 09:00 09/15/24 09:01 Aspirin 81 Mg Enteric Tablet PO 81 mg DAILY FRANCK Administration Atorvastatin Calcium 20 mg 09/14/24 09:00 09/15/24 09:01 Atorvastatin 20 Mg Tablet PO 20 mg DAILY FRANCK Administration Dextrose 12.5 gm 09/13/24 19:09 Dextrose 50% 25 Gm/50 Ml Syringe IV PUSH PRN PRN Hypoglycemia Protocol Fluconazole 100 mg 09/15/24 09:00 09/15/24 09:01 Fluconazole 100 Mg Tablet PO 09/21/24 09:01 100 mg QAM FRANCK Administration Glucagon 1 mg 09/13/24 19:09 Glucagon For Inj 1 Mg Vial IM PRN PRN Hypoglycemia Protocol Glucose 15 gm 09/13/24 19:09 Glucose Oral Gel 15 Gm Of Glucse In 37.5 Gm Tube PO PRN PRN Hypoglycemia Protocol Heparin Sodium (Porcine) 5,000 units 09/14/24 09:00 09/15/24 09:02 Heparin Sodium 5,000 Units/Ml Vial SUB-Q 5,000 units Q12HR FRANCK Administration Dextrose 1,000 mls @ 100 mls/hr 09/13/24 19:09 Dextrose 5% 1,000 Ml IVPB PRN PRN Hypoglycemia Protocol Insulin Aspart 4 units 09/14/24 12:00 09/15/24 11:36 Insulin Aspart (*Bkc) 100 Units/Ml SUB-Q 4 units TIDWM FRANCK Administration Insulin Aspart 3 - 6 units 09/14/24 12:00 09/15/24 11:37 Insulin Aspart (*Bkc) 100 Units/Ml SUB-Q 6 units TIDWM FRANCK Administration Protocol Insulin Aspart 1 - 3 units 09/14/24 21:00 09/14/24 21:12 Insulin Aspart (*Bkc) 100 Units/Ml SUB-Q 3 units HS FRANCK Administration Protocol Insulin Glargine 20 units 09/14/24 09:05 09/15/24 09:11 Insulin Glargine (*Bkc) 100 Units/Ml SUB-Q 20 units QAM FRANCK Administration Nystatin 5 ml 09/13/24 21:00 09/15/24 12:46 Nystatin 100,000 Units/Ml Susp 5 Ml Oral.Susp PO 5 ml QID FRANCK Administration Ondansetron HCl 4 mg 09/13/24 21:00 09/13/24 21:12 Ondansetron Inj 4 Mg/2 Ml Vial IV PUSH 4 mg Q6H PRN Administration Nausea And Vomiting Radiology Results: ITS Impressions Neck/Chest CT 09/14/24 12:52 IMPRESSION: 1. No etiology for the patient's symptoms. 2. Left adrenal masses measuring up to 18 mm. In the absence of known mal ignancy, these findings are likely adenomas. Renal Ultrasound 09/14/24 15:49 IMPRESSION: No definite abnormality seen. Labs Labs: Laboratory Tests 09/15/24 04:26 09/15/24 04:26 Calcium 8.8 Magnesium 3.4 H Total Bilirubin 1.1 AST 18 ALT 15 Alkaline Phosphatase 67 Total Protein 7.0 Albumin 3.8 Microbiology 09/14/24 02:42 Blood Blood Culture - Preliminary 09/14/24 02:42 Blood Blood Culture - Preliminary
--- NOTE | 2024-09-15 14:46 | PM.IMPN ---
Progress Note: A&P Assessment and Plan (1) Diabetic ketoacidosis: Code(s): E11.10 - Type 2 diabetes mellitus with ketoacidosis without coma Status: Acute Assessment and Plan: Patient presents with severe hyperglycemia (1110), ketonuria, and elevated anion gap. Patient treated with insulin drip. Anion gap closed and inulin drip weaned off. Placed on Lantus and meal timeNovoLog patient educator and special education tutor were consulted DKA resolved (2) New onset type 2 diabetes mellitus: Code(s): E11.9 - Type 2 diabetes mellitus without complications Status: Acute Assessment and Plan: A1c 12.8%. New onset DM. As above. Now on subcu insulin The patient's blood glucose was reviewed on 09/15 Glucose poorly controlled. Continue AccuCheks covering with sliding scale. Hypoglycemia protocol available as needed. Advance Lantus and Novolog (3) Acute kidney injury: Code(s): N17.9 - Acute kidney failure, unspecified Status: Acute Assessment and Plan: Baseline Cr normal in November at 1.0. Cr up to 3.1 here. JEANETTE is likely due to profound dehydration in addition to diuretic and ARB use. Received 2 L normal saline in the ED and started on IV fluid rehydration per DKA protocol. He was orthostatic and blood pressures improved Creatinine slowly improving and now down to 1.7 Renal ultrasound showing no definitive abnormalities. Nephrology consulted and followiing (4) Electrolyte abnormality: Code(s): E87.8 - Other disorders of electrolyte and fluid balance, not elsewhere classified Status: Acute Assessment and Plan: Including a sodium of 136 (152 when correcting for glucose), potassium 5.6, chloride 92, calcium 10.6. Levels much better. Continue to monitor (5) Lactic acidosis: Code(s): E87.20 - Acidosis, unspecified Status: Acute Assessment and Plan: Initial lactic acid was 4.9 and down to 3.0 after 2 L bolus Related to above (6) Thrush: Code(s): B37.0 - Candidal stomatitis Status: Acute Assessment and Plan: Patient with thrush due to uncontrolled hyperglycemia. Nystatin swish and swallow started given reports of sore throat as well. Fluconazole ordered. Clinically better. Monitor for resolution. (7) Combined systolic and diastolic congestive heart failure: Code(s): I50.40 - Unspecified combined systolic (congestive) and diastolic (congestive) heart failure Status: Acute Assessment and Plan: Patient with idiopathic dilated cardiomyopathy diagnosed in 2020 with an EF of 40 to 45%. He was treated with IV fluids but we attemped to avoid over-hydration His home amlodpine-valsartan, metoprolol and spironolactone on hold. He also takes Lasix as needed. BP noted. Monitor volume status with I/O and daily weights. Try to resume low dose metoprolol since HR climbing a bit (8) Hypertension: Qualifiers: Hypertension type: essential hypertension Qualified Code(s): I10 - Essential (primary) hypertension Code(s): I10 - Essential (primary) hypertension Status: Chronic Assessment and Plan: Blood pressures have been running at the low end of normal. AntiHTN meds on hold (9) Dysphagia: Code(s): R13.10 - Dysphagia, unspecified Status: Acute Assessment and Plan: Patient with complaints of dysphagia but seems more consistent with odynophagia. CT neck and chest without any obvious finding Consider related to esophagitis. Plan DVT prophylaxis subQ heparin Code status full code Subjective Date/time seen: 09/15/24 14:46 Interval history: 69yo male with CMP, s/d CHF and HTN here for fatigue and sore throat. Assuming care. Chart reviewed. Feeling better. Sores in the mouth but overall better. He is up walking to the BR. Still on full liquids this morning and tolerating it. Denies tobacco use. no CP or SOB. No cough No n/v. Vague about alcohol use. Exam Narrative: AF 99.1 93/52 97 16 99% ra Gen - NARD HEENT - resolving evidence of thrush noted in the oropharynex Chest - CTA bilaterally, nml RR CV - RRR S1/S2. Telemetry showing significant dysrhythmias Abd - Soft, NT/ND, Positive BS. Large periumbilical hernia noted. Ext - No pedal edema Neuro - Alert and oriented. Nonfocal exam. Psych - Nml mood and affect Skin - Warm and dry Objective Data Vital Signs Vital Signs: Vital Signs - 24 hr 09/14/24 15:08 09/14/24 16:00 09/14/24 16:00 Temperature 98.6 F Pulse Rate 81 85 81 Respiratory Rate 20 20 Blood Pressure 104/62 Pulse Oximetry 99 99 Oxygen Delivery Room Air 09/14/24 18:00 09/14/24 19:48 09/14/24 19:50 Temperature 98.6 F Pulse Rate 87 99 Respiratory Rate 20 Blood Pressure 87/52 L 106/87 Pulse Oximetry 88 L Oxygen Delivery 09/14/24 19:51 09/14/24 19:55 09/14/24 20:00 Temperature Pulse Rate 90 90 Respiratory Rate 20 Blood Pressure 96/65 L Pulse Oximetry 98 Oxygen Delivery Room Air 09/14/24 21:38 09/14/24 23:50 09/14/24 23:51 Temperature Pulse Rate 89 85 85 Respiratory Rate 20 Blood Pressure Pulse Oximetry 98 Oxygen Delivery Room Air 09/15/24 00:09 09/15/24 01:47 09/15/24 04:00 Temperature 97.7 F Pulse Rate 86 86 86 Respiratory Rate 20 Blood Pressure 103/39 L Pulse Oximetry 100 Oxygen Delivery 09/15/24 04:00 09/15/24 04:42 09/15/24 05:49 Temperature 97.7 F Pulse Rate 86 88 90 Respiratory Rate 20 20 Blood Pressure 103/45 L Pulse Oximetry 100 100 Oxygen Delivery Room Air 09/15/24 08:00 09/15/24 08:29 09/15/24 08:00 Temperature 98.8 F Pulse Rate 93 96 Respiratory Rate 18 Blood Pressure 112/62 Pulse Oximetry 100 100 Oxygen Delivery Room Air 09/15/24 08:00 09/15/24 10:00 09/15/24 12:00 Temperature Pulse Rate 97 Respiratory Rate Blood Pressure Pulse Oximetry Oxygen Delivery Room Air Room Air 09/15/24 12:00 09/15/24 12:00 09/15/24 08:00 Temperature 99.1 F Pulse Rate 110 H 95 Respiratory Rate 16 Blood Pressure 112/59 L 112/59 L Pulse Oximetry 99 Oxygen Delivery 09/15/24 12:23 09/15/24 12:24 09/15/24 14:00 Temperature Pulse Rate 97 Respiratory Rate Blood Pressure 101/77 93/52 L Pulse Oximetry Oxygen Delivery Intake/Output Intake/Output: Intake & Output 09/12/24 09/13/24 09/14/24 09/15/24 23:59 23:59 23:59 23:59 Intake Total 3078.3 3267.0 2480 Output Total 450 650 51 Balance 2628.3 2617.0 2429 Meds/Results Medications: Active Medications Generic Name Dose Route Start Last Admin Trade Name Freq PRN Reason Stop Dose Admin Acetaminophen 650 mg 09/13/24 19:09 Acetaminophen 325 Mg Tablet PO Q6H PRN Mild Pain (1-3) or Fever Aspirin 81 mg 09/14/24 09:00 09/15/24 09:01 Aspirin 81 Mg Enteric Tablet PO 81 mg DAILY FRANCK Administration Atorvastatin Calcium 20 mg 09/14/24 09:00 09/15/24 09:01 Atorvastatin 20 Mg Tablet PO 20 mg DAILY FRANCK Administration Dextrose 12.5 gm 09/13/24 19:09 Dextrose 50% 25 Gm/50 Ml Syringe IV PUSH PRN PRN Hypoglycemia Protocol Fluconazole 100 mg 09/15/24 09:00 09/15/24 09:01 Fluconazole 100 Mg Tablet PO 09/21/24 09:01 100 mg QAM FRANCK Administration Glucagon 1 mg 09/13/24 19:09 Glucagon For Inj 1 Mg Vial IM PRN PRN Hypoglycemia Protocol Glucose 15 gm 09/13/24 19:09 Glucose Oral Gel 15 Gm Of Glucse In 37.5 Gm Tube PO PRN PRN Hypoglycemia Protocol Heparin Sodium (Porcine) 5,000 units 09/14/24 09:00 09/15/24 09:02 Heparin Sodium 5,000 Units/Ml Vial SUB-Q 5,000 units Q12HR FRANCK Administration Dextrose 1,000 mls @ 100 mls/hr 09/13/24 19:09 Dextrose 5% 1,000 Ml IVPB PRN PRN Hypoglycemia Protocol Insulin Aspart 4 units 09/14/24 12:00 09/15/24 11:36 Insulin Aspart (*Bkc) 100 Units/Ml SUB-Q 4 units TIDWM FRANCK Administration Insulin Aspart 3 - 6 units 09/14/24 12:00 09/15/24 11:37 Insulin Aspart (*Bkc) 100 Units/Ml SUB-Q 6 units TIDWM FRANCK Administration Protocol Insulin Aspart 1 - 3 units 09/14/24 21:00 09/14/24 21:12 Insulin Aspart (*Bkc) 100 Units/Ml SUB-Q 3 units HS FRANCK Administration Protocol Insulin Glargine 20 units 09/14/24 09:05 09/15/24 09:11 Insulin Glargine (*Bkc) 100 Units/Ml SUB-Q 20 units QAM FRANCK Administration Nystatin 5 ml 09/13/24 21:00 09/15/24 12:46 Nystatin 100,000 Units/Ml Susp 5 Ml Oral.Susp PO 5 ml QID FRANCK Administration Ondansetron HCl 4 mg 09/13/24 21:00 09/13/24 21:12 Ondansetron Inj 4 Mg/2 Ml Vial IV PUSH 4 mg Q6H PRN Administration Nausea And Vomiting Radiology Results: ITS Impressions Neck/Chest CT 09/14/24 12:52 IMPRESSION: 1. No etiology for the patient's symptoms. 2. Left adrenal masses measuring up to 18 mm. 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 Renal Ultrasound 09/14/24 15:49 IMPRESSION: No definite abnormality seen. Labs Labs: Laboratory Results - last 24 hr 09/14/24 09/14/24 09/15/24 16:21 19:31 04:26 WBC 11.4 H RBC 4.30 L Hgb 13.5 L Hct 42.2 MCV 98.1 MCH 31.4 MCHC 32.0 RDW 12.6 Plt Count 269 MPV 11.2 H Immature Gran % (Auto) 0.4 Neut % (Auto) 71.4 Lymph % (Auto) 17.3 L [place] % (Auto) 9.4 H Eos % (Auto) 1.0 Baso % (Auto) 0.5 Lymph # (Auto) 1.98 [place] # (Auto) 1.1 H Eos # (Auto) 0.1 Baso # (Auto) 0.1 Abs Immat Gran (auto) 0.05 H Absolute Neuts (auto) 8.2 H Absolute Nucleated RBC 0.000 Nucleated RBC % 0.0 Sodium 144 Potassium 4.3 Chloride 112 H Carbon Dioxide 23 Anion Gap 9 BUN 63 H D Creatinine 1.70 H Estim Creat Clear Calc 43 Estimated GFR 49 L Glucose 359 H POC Capillary Glucose 375 H 366 H Calcium 8.8 Magnesium 3.4 H Total Bilirubin 1.1 AST 18 ALT 15 Alkaline Phosphatase 67 Total Protein 7.0 Albumin 3.8 09/15/24 09/15/24 07:33 11:22 WBC RBC Hgb Hct MCV MCH MCHC RDW Plt Count MPV Immature Gran % (Auto) Neut % (Auto) Lymph % (Auto) [place] % (Auto) Eos % (Auto) Baso % (Auto) Lymph # (Auto) [place] # (Auto) Eos # (Auto) Baso # (Auto) Abs Immat Gran (auto) Absolute Neuts (auto) Absolute Nucleated RBC Nucleated RBC % Sodium Potassium Chloride Carbon Dioxide Anion Gap BUN Creatinine Estim Creat Clear Calc Estimated GFR Glucose POC Capillary Glucose 399 H 382 H Calcium Magnesium Total Bilirubin AST ALT Alkaline Phosphatase Total Protein Albumin
[2024-09-15 16:27] LABS: Glucose Point of Care 347 mg/dl (65-105)
[2024-09-15 20:08] LABS: Glucose Point of Care 457 mg/dl (65-105)
--- NOTE | 2024-09-15 20:34 | PC.NURSE ---
Dr. Burroughs notified of current blood pressure and blood sugar. New orders to be put in by Dr. Burroughs for elevated blood glucose. Hold Metoprolol for current Blood Pressure
[2024-09-15] MEDS: INSULIN HUMAN REGULAR (*BKC) 100 UNITS/ML 10 UNITS IV PUSH (20:47)
[2024-09-16] VITALS (18 sets, daily range): BP systolic 79–139; BP diastolic 49–82; PULSE 82–102; RESP 16–20; TEMP 36.6–37.3; O2SAT 98–100
[2024-09-16 05:10] LABS: Anion Gap 8 mmol/L (4-12); Blood Urea Nitrogen 37 mg/dL (9-20); Calcium 8.9 mg/dL (8.4-10.2); Carbon Dioxide 25 mmol/L (22-30); Chloride 109 mmol/L (98-107); Estimated CRCL calculation 65 ml/min; Estimated Glomerular Filt Rate > 60; Glucose 291 mg/dL (65-110); Phosphorus 2.7 mg/dL (2.5-4.5); Potassium 3.9 mmol/L (3.4-5.0); Sodium 142 mmol/L (137-145)
[2024-09-16 08:02] LABS: Glucose Point of Care 312 mg/dl (65-105)
[2024-09-16] MEDS: METOPROLOL TARTRATE 12.5 MG TABLET PO ×2 (09:12→20:22)
[2024-09-16] MEDS: NYSTATIN 100,000 UNITS/ML SUSP 5 ML ORAL.SUSP PO ×4 (09:12→20:28)
[2024-09-16] MEDS: FLUCONAZOLE 100 MG TABLET PO (09:12)
[2024-09-16] MEDS: ATORVASTATIN 20 MG TABLET PO (09:12)
[2024-09-16] MEDS: ASPIRIN 81 MG ENTERIC TABLET PO (09:12)
[2024-09-16] MEDS: HEPARIN SODIUM 5,000 UNITS/ML VIAL 5000 UNITS SUB-Q ×2 (09:13→20:22)
[2024-09-16] MEDS: INSULIN ASPART (*BKC) 100 UNITS/ML SUB-Q ×4 (09:34→20:27)
[2024-09-16] MEDS: INSULIN ASPART (*BKC) 100 UNITS/ML 8 UNITS SUB-Q ×3 (09:34→17:03)
[2024-09-16] MEDS: INSULIN GLARGINE (*BKC) 100 UNITS/ML 25 UNITS SUB-Q (09:35)
[2024-09-16 12:03] LABS: Glucose Point of Care 391 mg/dl (65-105)
--- NOTE | 2024-09-16 13:26 | PM.PNNEP ---
Subjective Date/time seen: 09/16/24 13:26 Objective Data Vital Signs Vital Signs: Vital Signs Temp Pulse Resp BP Pulse Ox O2 Del Method 09/16/24 12:00 Room Air 09/16/24 12:00 100 09/16/24 11:45 95 18 79/53 L 100 09/16/24 11:45 87 18 95/56 L 100 09/16/24 11:45 99.2 F 82 18 89/59 L 100 09/16/24 11:25 98.4 F 82 18 105/63 100 09/16/24 10:00 86 09/16/24 08:00 Room Air 09/16/24 08:00 102 H 09/16/24 09:12 96 09/16/24 07:28 98.0 F 88 18 113/74 100 09/16/24 06:00 94 09/16/24 04:00 88 09/16/24 04:00 98.1 F 91 16 112/65 98 09/16/24 04:00 85 Room Air 09/16/24 02:00 86 09/16/24 00:00 96 09/16/24 00:00 98 F 96 18 103/49 L 100 09/15/24 23:33 91 Room Air 09/15/24 22:00 95 09/15/24 20:00 103 H 09/15/24 20:00 Room Air 09/15/24 20:05 96/70 L 09/15/24 19:36 85/53 L 09/15/24 19:35 96/58 L 09/15/24 19:34 98.1 F 98 16 113/57 L 100 09/15/24 19:34 113/57 L 09/15/24 18:00 109 H 09/15/24 16:00 98.2 F 102 H 16 98/80 L 100 09/15/24 16:00 Room Air 09/15/24 16:00 102 H Intake/Output Intake/Output: Intake & Output 09/13/24 09/14/24 09/15/24 09/16/24 23:59 23:59 23:59 23:59 Intake Total 3078.3 3267.0 3320 1620 Output Total 450 650 51 Balance 2628.3 2617.0 3269 1620 Meds/Results Medications: Active Medications Generic Name Dose Route Start Last Admin Trade Name Freq PRN Reason Stop Dose Admin Acetaminophen 650 mg 09/13/24 19:09 Acetaminophen 325 Mg Tablet PO Q6H PRN Mild Pain (1-3) or Fever Aspirin 81 mg 09/14/24 09:00 09/16/24 09:12 Aspirin 81 Mg Enteric Tablet PO 81 mg DAILY FRANCK Administration Atorvastatin Calcium 20 mg 09/14/24 09:00 09/16/24 09:12 Atorvastatin 20 Mg Tablet PO 20 mg DAILY FRANCK Administration Dextrose 12.5 gm 09/13/24 19:09 Dextrose 50% 25 Gm/50 Ml Syringe IV PUSH PRN PRN Hypoglycemia Protocol Fluconazole 100 mg 09/15/24 09:00 09/16/24 09:12 Fluconazole 100 Mg Tablet PO 09/21/24 09:01 100 mg QAM FRANCK Administration Glucagon 1 mg 09/13/24 19:09 Glucagon For Inj 1 Mg Vial IM PRN PRN Hypoglycemia Protocol Glucose 15 gm 09/13/24 19:09 Glucose Oral Gel 15 Gm Of Glucse In 37.5 Gm Tube PO PRN PRN Hypoglycemia Protocol Heparin Sodium (Porcine) 5,000 units 09/14/24 09:00 09/16/24 09:13 Heparin Sodium 5,000 Units/Ml Vial SUB-Q 5,000 units Q12HR RFANCK Administration Dextrose 1,000 mls @ 100 mls/hr 09/13/24 19:09 Dextrose 5% 1,000 Ml IVPB PRN PRN Hypoglycemia Protocol Sodium Chloride 1,000 mls @ 100 mls/hr 09/16/24 15:15 Normal Saline Iv IV CONT 09/17/24 01:14 .Q10H FRANCK Insulin Aspart 3 - 6 units 09/14/24 12:00 09/16/24 11:58 Insulin Aspart (*Bkc) 100 Units/Ml SUB-Q 6 units TIDWM FRANCK Administration Protocol Insulin Aspart 1 - 3 units 09/14/24 21:00 09/15/24 20:33 Insulin Aspart (*Bkc) 100 Units/Ml SUB-Q Not Given HS FRANCK Protocol Insulin Aspart 8 units 09/16/24 08:00 09/16/24 11:58 Insulin Aspart (*Bkc) 100 Units/Ml SUB-Q 8 units TIDWM FRANCK Administration Insulin Glargine 25 units 09/16/24 09:00 09/16/24 09:35 Insulin Glargine (*Bkc) 100 Units/Ml SUB-Q 25 units QAM FRANCK Administration Metoprolol Tartrate 12.5 mg 09/15/24 21:00 09/16/24 09:12 Metoprolol Tartrate 12.5 Mg Tablet PO 12.5 mg Q12HR FRANCK Administration Nystatin 5 ml 09/13/24 21:00 09/16/24 12:45 Nystatin 100,000 Units/Ml Susp 5 Ml Oral.Susp PO 5 ml QID FRANCK Administration Ondansetron HCl 4 mg 09/13/24 21:00 09/13/24 21:12 Ondansetron Inj 4 Mg/2 Ml Vial IV PUSH 4 mg Q6H PRN Administration Nausea And Vomiting Radiology Results: ITS Impressions Neck/Chest CT 09/14/24 12:52 IMPRESSION: 1. No etiology for the patient's symptoms. 2. Left adrenal masses measuring up to 18 mm. 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 Renal Ultrasound 09/14/24 15:49 IMPRESSION: No definite abnormality seen. Labs Labs: Laboratory Tests 09/15/24 04:26 09/16/24 04:21 09/15/24 09/15/24 09/16/24 16:17 19:39 04:21 Sodium 142 Potassium 3.9 Chloride 109 H Carbon Dioxide 25 Anion Gap 8 BUN 37 H D Creatinine 1.10 Estim Creat Clear Calc 65 Estimated GFR > 60 Glucose 291 H POC Capillary Glucose 347 H 457 H Calcium 8.9 Phosphorus 2.7 Albumin 4.0 09/16/24 09/16/24 07:27 11:11 Sodium Potassium Chloride Carbon Dioxide Anion Gap BUN Creatinine Estim Creat Clear Calc Estimated GFR Glucose POC Capillary Glucose 312 H 391 H Calcium Phosphorus Albumin
[2024-09-16] MEDS: SODIUM CHLORIDE 0.9% IV 1,000 ML 100 ML IV CONT (16:06)
[2024-09-16 16:13] LABS: Glucose Point of Care 249 mg/dl (65-105)
--- NOTE | 2024-09-16 16:31 | PM.IMPN ---
Progress Note: A&P Assessment and Plan (1) Diabetic ketoacidosis: Code(s): E11.10 - Type 2 diabetes mellitus with ketoacidosis without coma Status: Acute Assessment and Plan: Patient presents with severe hyperglycemia (1110), ketonuria, and elevated anion gap. Patient treated with insulin drip. Anion gap closed and inulin drip weaned off. Placed on Lantus and meal time NovoLog early childhood educator aide and wheel truer were consulted DKA resolved (2) New onset type 2 diabetes mellitus: Code(s): E11.9 - Type 2 diabetes mellitus without complications Status: Acute Assessment and Plan: A1c 12.8%. New onset DM. As above. Now on subcu insulin The patient's blood glucose was reviewed on 09/16 Glucose still poorly controlled. Continue AccuCheks covering with sliding scale. Hypoglycemia protocol available as needed. Advance Lantus and Novolog again (3) Thrush: Code(s): B37.0 - Candidal stomatitis Status: Acute Assessment and Plan: Patient with thrush due to uncontrolled hyperglycemia. Nystatin swish and swallow started. Reports of sore throat and odynophagia as well. Fluconazole ordered. Discuss with GI - no need for EGD since clinically evident. Clarified with PharmD ID and fluconazole dosing adjusted. Somewhat better. Monitor for resolution. (4) Acute kidney injury: Code(s): N17.9 - Acute kidney failure, unspecified Status: Acute Assessment and Plan: Baseline Cr normal in November at 1.0. Cr up to 3.1 here. JEANETTE is likely due to profound dehydration in addition to diuretic and ARB use. Received 2 L normal saline in the ED and started on IV fluid rehydration per DKA protocol. He was orthostatic and blood pressures improved Creatinine slowly improving and now down to 1.1 Renal ultrasound showing no definitive abnormalities. Still orthostatic SBP 113-> 96-> 85. But was asymptomatic Nephrology consulted and following Resume NS x 1Liter (5) Combined systolic and diastolic congestive heart failure: Code(s): I50.40 - Unspecified combined systolic (congestive) and diastolic (congestive) heart failure Status: Acute Assessment and Plan: Patient with idiopathic dilated cardiomyopathy diagnosed in 2020 with an EF of 40 to 45%. He was treated with IV fluids but we attempted to avoid over-hydration so these were limited. His home amlodopine-valsartan, metoprolol and spironolactone were held He also takes Lasix as needed and also held. BP as above. Resumed low dose metoprolol and first dose was given this morning. Monitor volume status with I/O and daily weights. Try to advance home meds as toelrated. (6) Electrolyte abnormality: Code(s): E87.8 - Other disorders of electrolyte and fluid balance, not elsewhere classified Status: Acute Assessment and Plan: Including a sodium of 136 (152 when correcting for glucose), potassium 5.6, chloride 92, calcium 10.6. Levels much better. Continue to monitor (7) Lactic acidosis: Code(s): E87.20 - Acidosis, unspecified Status: Acute Assessment and Plan: Initial lactic acid was 4.9 and down to 3.0 after 2 L bolus Related to above (8) Hypertension: Qualifiers: Hypertension type: essential hypertension Qualified Code(s): I10 - Essential (primary) hypertension Code(s): I10 - Essential (primary) hypertension Status: Chronic Assessment and Plan: Blood pressures have been running low end of normal. As above (9) Dysphagia: Code(s): R13.10 - Dysphagia, unspecified Status: Acute Assessment and Plan: Patient with complaints of dysphagia but seems more consistent with odynophagia. CT neck and chest without any obvious finding [place] related to thrush and po esophagitis. As above Plan DVT prophylaxis subQ heparin Code status full code Subjective Date/time seen: 09/16/24 16:31 Interval history: 69yo male with CMP, s/d CHF and HTN here for fatigue and sore throat. Feeling better. Feels 'clearer'. Eating better but then states he put himself back on a liquid diet due to odynophagia. Exam Narrative: AF 97.9 128/69 88 20 99% ra Gen - NARD Chest - CTA bilaterally, nml RR CV - RRR S1/S2. Telemetry showing significant dysrhythmias Abd - Soft, NT/ND, Positive BS. Large periumbilical hernia noted. Ext - No pedal edema Neuro - Alert and oriented x4. Nonfocal exam. Psych - Nml mood and affect Skin - Warm and dry Objective Data Vital Signs Vital Signs: Vital Signs - 24 hr 09/15/24 18:00 09/15/24 19:34 09/15/24 19:34 Temperature 98.1 F Pulse Rate 109 H 98 Respiratory Rate 16 Blood Pressure 113/57 L 113/57 L Pulse Oximetry 100 Oxygen Delivery 09/15/24 19:35 09/15/24 19:36 09/15/24 20:05 Temperature Pulse Rate Respiratory Rate Blood Pressure 96/58 L 85/53 L 96/70 L Pulse Oximetry Oxygen Delivery 09/15/24 20:00 09/15/24 20:00 09/15/24 22:00 Temperature Pulse Rate 103 H 95 Respiratory Rate Blood Pressure Pulse Oximetry Oxygen Delivery Room Air 09/15/24 23:33 09/16/24 00:00 09/16/24 00:00 Temperature 98 F Pulse Rate 91 96 96 Respiratory Rate 18 Blood Pressure 103/49 L Pulse Oximetry 100 Oxygen Delivery Room Air 09/16/24 02:00 09/16/24 04:00 09/16/24 04:00 Temperature 98.1 F Pulse Rate 86 85 91 Respiratory Rate 16 Blood Pressure 112/65 Pulse Oximetry 98 Oxygen Delivery Room Air 09/16/24 04:00 09/16/24 06:00 09/16/24 07:28 Temperature 98.0 F Pulse Rate 88 94 88 Respiratory Rate 18 Blood Pressure 113/74 Pulse Oximetry 100 Oxygen Delivery 09/16/24 09:12 09/16/24 08:00 09/16/24 08:00 Temperature Pulse Rate 96 102 H Respiratory Rate Blood Pressure Pulse Oximetry Oxygen Delivery Room Air 09/16/24 10:00 09/16/24 11:25 09/16/24 11:45 Temperature 98.4 F 99.2 F Pulse Rate 86 82 82 Respiratory Rate 18 18 Blood Pressure 105/63 89/59 L Pulse Oximetry 100 100 Oxygen Delivery 09/16/24 11:45 09/16/24 11:45 09/16/24 12:00 Temperature Pulse Rate 87 95 100 Respiratory Rate 18 18 Blood Pressure 95/56 L 79/53 L Pulse Oximetry 100 100 Oxygen Delivery 09/16/24 12:00 09/16/24 14:00 09/16/24 15:11 Temperature 97.9 F Pulse Rate 91 88 Respiratory Rate 20 Blood Pressure 128/69 Pulse Oximetry 99 Oxygen Delivery Room Air Intake/Output Intake/Output: Intake & Output 09/13/24 09/14/24 09/15/24 09/16/24 23:59 23:59 23:59 23:59 Intake Total 3078.3 3267.0 3320 1620 Output Total 450 650 51 Balance 2628.3 2617.0 3269 1620 Meds/Results Medications: Active Medications Generic Name Dose Route Start Last Admin Trade Name Freq PRN Reason Stop Dose Admin Acetaminophen 650 mg 09/13/24 19:09 Acetaminophen 325 Mg Tablet PO Q6H PRN Mild Pain (1-3) or Fever Aspirin 81 mg 09/14/24 09:00 09/16/24 09:12 Aspirin 81 Mg Enteric Tablet PO 81 mg DAILY FRANCK Administration Atorvastatin Calcium 20 mg 09/14/24 09:00 09/16/24 09:12 Atorvastatin 20 Mg Tablet PO 20 mg DAILY FRANCK Administration Dextrose 12.5 gm 09/13/24 19:09 Dextrose 50% 25 Gm/50 Ml Syringe IV PUSH PRN PRN Hypoglycemia Protocol Fluconazole 100 mg 09/15/24 09:00 09/16/24 09:12 Fluconazole 100 Mg Tablet PO 09/28/24 09:01 100 mg QAM FRANCK Administration Glucagon 1 mg 09/13/24 19:09 Glucagon For Inj 1 Mg Vial IM PRN PRN Hypoglycemia Protocol Glucose 15 gm 09/13/24 19:09 Glucose Oral Gel 15 Gm Of Glucse In 37.5 Gm Tube PO PRN PRN Hypoglycemia Protocol Heparin Sodium (Porcine) 5,000 units 09/14/24 09:00 09/16/24 09:13 Heparin Sodium 5,000 Units/Ml Vial SUB-Q 5,000 units Q12HR FRANCK Administration Dextrose 1,000 mls @ 100 mls/hr 09/13/24 19:09 Dextrose 5% 1,000 Ml IVPB PRN PRN Hypoglycemia Protocol Sodium Chloride 1,000 mls @ 100 mls/hr 09/16/24 15:15 09/16/24 16:06 Normal Saline Iv IV CONT 09/17/24 01:14 100 mls/hr .Q10H FRANCK Administration Insulin Aspart 3 - 6 units 09/14/24 12:00 09/16/24 11:58 Insulin Aspart (*Bkc) 100 Units/Ml SUB-Q 6 units TIDWM FRANCK Administration Protocol Insulin Aspart 1 - 3 units 09/14/24 21:00 09/15/24 20:33 Insulin Aspart (*Bkc) 100 Units/Ml SUB-Q Not Given HS FRANCK Protocol Insulin Aspart 8 units 09/16/24 08:00 09/16/24 11:58 Insulin Aspart (*Bkc) 100 Units/Ml SUB-Q 8 units TIDWM FRANCK Administration Insulin Glargine 25 units 09/16/24 09:00 09/16/24 09:35 Insulin Glargine (*Bkc) 100 Units/Ml SUB-Q 25 units QAM FRANCK Administration Metoprolol Tartrate 12.5 mg 09/15/24 21:00 09/16/24 09:12 Metoprolol Tartrate 12.5 Mg Tablet PO 12.5 mg Q12HR FRANCK Administration Nystatin 5 ml 09/13/24 21:00 09/16/24 12:45 Nystatin 100,000 Units/Ml Susp 5 Ml Oral.Susp PO 5 ml QID FRANCK Administration Ondansetron HCl 4 mg 09/13/24 21:00 09/13/24 21:12 Ondansetron Inj 4 Mg/2 Ml Vial IV PUSH 4 mg Q6H PRN Administration Nausea And Vomiting Radiology Results: ITS Impressions Neck/Chest CT 09/14/24 12:52 IMPRESSION: 1. No etiology for the patient's symptoms. 2. Left adrenal masses measuring up to 18 mm. 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 Renal Ultrasound 09/14/24 15:49 IMPRESSION: No definite abnormality seen. Labs Labs: Laboratory Results - last 24 hr 09/15/24 09/16/24 09/16/24 19:39 04:21 07:27 Sodium 142 Potassium 3.9 Chloride 109 H Carbon Dioxide 25 Anion Gap 8 BUN 37 H D Creatinine 1.10 Estim Creat Clear Calc 65 Estimated GFR > 60 Glucose 291 H POC Capillary Glucose 457 H 312 H Calcium 8.9 Phosphorus 2.7 Albumin 4.0 09/16/24 09/16/24 11:11 16:04 Sodium Potassium Chloride Carbon Dioxide Anion Gap BUN Creatinine Estim Creat Clear Calc Estimated GFR Glucose POC Capillary Glucose 391 H 249 H Calcium Phosphorus Albumin
--- NOTE | 2024-09-16 18:43 | PC.NURSE ---
This patient, Percy Kumar, was received from IMU on 09/16/24 at 1830. Report received from SHANA Alegria. Patient/family oriented to unit policies and routines
[2024-09-16 21:39] LABS: Glucose Point of Care 327 mg/dl (65-105)
[2024-09-17 05:00] VITALS: BP 103/56; PULSE 94; RESP 20; TEMP 36.2; O2SAT 99
[2024-09-17 07:24] LABS: Mean Corpuscular HGB Conc 33.3 g/dl (32-36); Mean Corpuscular Volume 96.1 fl (80-100); Mean Platelet Volume 11.1 fl (7.4-10.4); Platelet Count Result 207 k/mm3 (150-375); Red Blood Count 4.06 M/mm3 (4.6-6.20); Red Cell Distribution Width 12.1 % (11.5-14.5); White Blood Count 6.2 K/mm3 (4.5-10.0)
[2024-09-17 07:28] LABS: Glucose Point of Care 242 mg/dl (65-105)
[2024-09-17 07:40] LABS: Albumin Level 3.7 g/dL (3.5-5.1); Anion Gap 7 mmol/L (4-12); Blood Urea Nitrogen 19 mg/dL (9-20); Carbon Dioxide 26 mmol/L (22-30); Chloride 103 mmol/L (98-107); Estimated CRCL calculation 79 ml/min; Estimated Glomerular Filt Rate > 60; Glucose 259 mg/dL (65-110); Magnesium 2.9 mg/dL (1.6-2.3); Phosphorus 2.1 mg/dL (2.5-4.5); Potassium 3.7 mmol/L (3.4-5.0); Sodium 136 mmol/L (137-145)
[2024-09-17 08:00] VITALS: BP 108/69; BP 112/80; PULSE 85; PULSE 97; RESP 16; TEMP 36.1; O2SAT 100
[2024-09-17] MEDS: HEPARIN SODIUM 5,000 UNITS/ML VIAL 5000 UNITS SUB-Q (08:10)
[2024-09-17] MEDS: ATORVASTATIN 20 MG TABLET PO (08:10)
[2024-09-17 08:11] VITALS: PULSE 94
[2024-09-17] MEDS: METOPROLOL TARTRATE 12.5 MG TABLET PO (08:11)
[2024-09-17] MEDS: FLUCONAZOLE 100 MG TABLET PO (08:11)
[2024-09-17] MEDS: INSULIN GLARGINE (*BKC) 100 UNITS/ML 32 UNITS SUB-Q (08:12)
[2024-09-17] MEDS: NYSTATIN 100,000 UNITS/ML SUSP 5 ML ORAL.SUSP PO ×3 (08:12→17:05)
[2024-09-17] MEDS: ASPIRIN 81 MG ENTERIC TABLET PO (08:12)
[2024-09-17] MEDS: INSULIN ASPART (*BKC) 100 UNITS/ML 11 UNITS SUB-Q ×2 (08:14→12:06)
[2024-09-17] MEDS: INSULIN ASPART (*BKC) 100 UNITS/ML SUB-Q ×3 (08:15→17:05)
[2024-09-17 08:23] VITALS: BP 105/66; PULSE 105; RESP 16; TEMP 36.1; O2SAT 100
[2024-09-17] MEDS: POTASSIUM/PHOSPHORUS/SODIUM 1.5 GM PACKET 1 PACKET PO (08:23)
--- NOTE | 2024-09-17 10:25 | PCNFU ---
Nutrition Follow-Up Complete: 1. Inadequate oral intake related to oral thrush as evidenced by patient report of oral pain, trouble swallowing 2. Food and nutrition related knowledge deficit related to new onset diabetes as evidenced by HgA1C 12.8% Goal:PO intake at least 75% meals and supplements Trend blood glucose Pt meeting goals, continue with same goals Pt current nutrition is Diabetic, Glucerna larisakes TID. Nutrition recommendation: continue with current plan of care Last recorded weight is 90.8 kg. Bowel Motility: +BM 09/16 Labs Reviewed: Hgb:13, HCT:39, NA:136, Glu:259 Meds Noted: insulin, zofran Skin: WNL Additional Notes: Pt continues on a diabetic diet, intake 50-100% of meals at this time, reports a good appetite and improved intake. Pt has no questions regarding diet recommendations. Encouraged good po intake. Monitoring intakes, weights, labs, supplement tolerance, plan of care Follow up in 7 days
--- NOTE | 2024-09-17 10:50 | PCCDE ---
Diabetes education f/up: pt admitted 09/13 with DKA and new onset DM. Pt was seen and educated on 09/15. Insulin has been titrated and currently receivin units Lantus AM, 11 units Novolog TID WM plus moderate dose correction scale TID WM and HS. POC B/24 [phone] 09/17 [phone] Met with pt; he is hoping to go home but anxious about caring for new onset diabetes. INSULIN: reviewed and role played insulin regimen; pt sts he will give self a shot here today before discharge. MONITORING: Reviewed causes, sx and tx of hypo and hyperglycemia using teach back method. Pt is currently wearing Lucy 3 but advised he will need to have BG meter for back up. Advised Medicare will cover CGM since he is taking insulin. Reviewed and explained A1c and discussed the importance of PCP f/up. Suggested resources such as [email or web address] Encouraged to call with questions.
[2024-09-17 11:14] LABS: Glucose Point of Care 372 mg/dl (65-105)
--- NOTE | 2024-09-17 15:35 | P.DS_ITS ---
DS: Admitting Diagnosis Discharge Date 09/17/24 Admitting Diagnosis Fatigue DS: Discharge Diagnosis Discharge Diagnosis (1) Diabetic ketoacidosis: Code(s): E11.10 - Type 2 diabetes mellitus with ketoacidosis without coma Status: Acute (2) New onset type 2 diabetes mellitus: Code(s): E11.9 - Type 2 diabetes mellitus without complications Status: Acute (3) Thrush: Code(s): B37.0 - Candidal stomatitis Status: Acute (4) Acute kidney injury: Code(s): N17.9 - Acute kidney failure, unspecified Status: Acute (5) Combined systolic and diastolic congestive heart failure: Code(s): I50.40 - Unspecified combined systolic (congestive) and diastolic (congestive) heart failure Status: Acute (6) Electrolyte abnormality: Code(s): E87.8 - Other disorders of electrolyte and fluid balance, not elsewhere classified Status: Acute (7) Lactic acidosis: Code(s): E87.20 - Acidosis, unspecified Status: Acute (8) Hypertension: Qualifiers: Hypertension type: essential hypertension Qualified Code(s): I10 - Essential (primary) hypertension Code(s): I10 - Essential (primary) hypertension Status: Chronic (9) Dysphagia: Code(s): R13.10 - Dysphagia, unspecified Status: Acute DS: Summary Hospital Course Reason for hospitalization: 69yo male with CMP, s/d CHF and HTN here for fatigue and sore throat. Please see H&P for details. Hospital Course: Patient presents with fatigue and found to have severe hyperglycemia (1110), ketonuria, and elevated anion gap c/w DKA. Patient was started on DKA protocol with insulin drip. Anion gap closed and inulin drip weaned off. Placed on Lantus and meal time NovoLog. retail sales clerk and disability coordinator were consulted. DKA resolved. A1c 12.8%. New onset DM. Glucose was poorly controlled and his insulin regiment was advanced. Metformin added once his renal function improved. He was monitored with AccuCheks covering with sliding scale. Hypoglycemia protocol was available as needed. Patient also with sore throat and found to have thrush due to uncontrolled hyperglycemia. Nystatin swish and swallow started. Reports of odynophagia as well. CT neck and chest without any concerning findings. He did have a left adrenal mass at 1.8cm felt to be an adenoma. [place] his symptoms related to thrush and po esophagitis. Fluconazole ordered. Discuss with GI - no need for EGD since clinically better with treatment. Clarified with PharmD ID and fluconazole dosing was adjusted. Baseline Cr normal in November at 1.0. Cr up to 3.1 here. JEANETTE is likely due to profound dehydration in addition to diuretic and ARB use. Received 2 L normal saline in the ED and started on IV fluid rehydration per DKA protocol. He was orthostatic and blood pressures improved with IV fluids. Anti-HTN medications held. Nephrology consulted. Creatinine slowly improved to normal. Renal ultrasound showing no definitive abnormalities. he was still orthostatic so 1L NS given. Repeat orthostatic SBP 112-> 108-> 105. Patient with idiopathic dilated cardiomyopathy diagnosed in 2020 with an EF of 40 to 45%. He was treated with IV fluids but we attempted to avoid over-hydration so these were limited. His home amlodipine-valsartan, metoprolol and spironolactone were held. He also takes Lasix as needed and also held. Once his BP improved, we were able to resume low dose metoprolol. Unable to resume other medications at this time. He overall did well. He is eating better. Odynophagia much improved. He practiced injecting himself and checking glucose with the policy loan calculator and with staff. He felt comfortable with discharged plan. He overall did well and was able to be discharged home on 09/17/24. Status at Discharge Cognitive/behavioral status at discharge: stable Time Spent with Patient Time attestation: Total time spent providing and/or coordinating discharge services: 35 minutes Exam Narrative: AF 96.9 105/66 105 16 100% ra Gen - NARD HEENT - no thrush noted. Chest - CTA bilaterally, nml RR CV - RRR S1/S2. Abd - Soft, NT/ND, Positive BS. Large periumbilical hernia noted. Ext - No pedal edema Psych - Nml mood and affect Skin - Warm and dry DS: Data Data Completed and Pending Labs on day of discharge: Labs from last 24 hours 09/17/24 09/17/24 09/17/24 11:08 07:21 06:54 WBC 6.2 RBC 4.06 L Hgb 13.0 L Hct 39.0 L MCV 96.1 MCH 32.0 MCHC 33.3 RDW 12.1 Plt Count 207 MPV 11.1 H Sodium 136 L Potassium 3.7 Chloride 103 Carbon Dioxide 26 Anion Gap 7 BUN 19 D Creatinine 0.90 Estim Creat Clear Calc 79 Estimated GFR > 60 Glucose 259 H POC Capillary Glucose 372 H 242 H Calcium 8.0 L Phosphorus 2.1 L Magnesium 2.9 H Albumin 3.7 09/16/24 09/16/24 20:00 16:04 WBC RBC Hgb Hct MCV MCH MCHC RDW Plt Count MPV Sodium Potassium Chloride Carbon Dioxide Anion Gap BUN Creatinine Estim Creat Clear Calc Estimated GFR Glucose POC Capillary Glucose 327 H 249 H Calcium Phosphorus Magnesium Albumin Preliminary micro results at discharge 09/14/24 02:42 Blood Culture - Preliminary Blood 09/14/24 02:42 Blood Culture - Preliminary Blood Discharge Plan Discharge Attending physician on discharge: Thaddeus Friedman Consulting providers: Ean Figueroa; Patsy Recinos Discharging Clinician: Thaddeus Friedman Anticipated Discharge Date/Time: 09/17/24 15:51 Patient Disposition: Home Health Service Activity: as tolerated Diet: diabetic Discharge Instructions: Per Care Coordination, patient to discharge with [facility] ([phone]) for chcf and diabetic teaching. Agency will call to arrange the intial visit. Please check glucose before meals and before bed. Record and bring into your doctor for review. Check blood pressure 1 to 2 times a day. Record and bring into your doctor for review. Call your doctor if your blood pressure is greater than 180/110. Please complete your antifungal treatment even if you are starting to feel well. Take precautions to avoid falls. Rise slowly from a lying or sitting position. Pause before standing or walking. Check daily morning weights after voiding. Call your doctor if you gain more than 3 lb in 2 days or 5 lb in 1 week. Contact your doctor or call 911 and come to the Emergency Room if you have lightheadedness with standing or other worrisome symptoms. Avoid NSAIDs (ibuprofen, naproxen, Aleve). Tylenol is safe to take. Follow-up with your primary care provider in 1-2 weeks. Please call for appointment. Thank you for using [facility] for your health care needs. Patient Instructions: Antibiotic Form, Diabetic Ketoacidosis (GEN), Type 2 Diabetes in Adults: New Diagnosis (DC) Stand Alone Forms: General Discharge Information Follow-up/Referrals: Greg López, [Primary Care Provider] - Call for Appointment Discharge Medications: New (DME) blood-glucose meter [OneTouch Verio Flex meter] [facility] Qty: 1 0RF Rx Instructions: May substitute to in-stock meter and/or covered by insurance. Use As Directed (DME) OneTouch Verio test strips Strip Qty: 1 1RF Rx Instructions: May substitute to in-stock and/or covered by insurance strips. Use As Directed (DME) pen needle, diabetic [BD Ultra-Fine Abiola Pen Needle] 32 gauge x 5/32 needle Qty: 1 1RF Rx Instructions: May substitute to meet patient needs. Use As Directed (DME) lancets [[employer] SystemsTouch Delica Plus Lancet] 30 gauge [facility] [place] Qty: 1 1RF Rx Instructions: May substitute to in-stock and/or covered by insurance lancets. Use As Directed metformin 500 mg tablet 500 mg PO BIDWMEAL Qty: 60 1RF metoprolol succinate [Toprol XL] 25 mg tablet extended release 24 hr 25 mg PO DAILY Qty: 30 0RF nystatin 100,000 unit/mL Suspension 5 ml PO QID Qty: 100 0RF Rx Instructions: treat through 09/21/24 fluconazole [Diflucan] 100 mg Tablet 100 mg PO QAM Qty: 4 0RF insulin aspart U-100 100 unit/mL (3 mL) insulin pen 14 unit subcut TID Qty: 15 1RF insulin glargine 100 unit/mL (3 mL) insulin pen 40 unit subcut QAM Qty: 15 1RF Continued atorvastatin 20 mg tablet 20 mg PO DAILY aspirin [Adult Low Dose Aspirin] 81 mg tablet,delayed release (DR/EC) 81 mg PO DAILY Held amlodipine-valsartan 10-320 mg tablet 1 tablet PO DAILY Hold Instructions: HOLD - Resume when okay with your doctor spironolactone 25 mg tablet 25 mg PO DAILY Hold Instructions: HOLD - Resume when okay with your doctor furosemide [Lasix] 20 mg tablet 20 mg PO DAILY PRN (Reason: Edema) Qty: 30 0RF Hold Instructions: HOLD - Resume when okay with your doctor metoprolol succinate 100 mg tablet extended release 24 hr 100 mg PO DAILY Hold Instructions: HOLD - Resume when okay with your doctor. Other Ambulatory Orders: Diabetes Education Referral (Routine) Timeframe: 1 Day Location: Determined by Patient Ordered By: Thaddeus Friedman Date of admission: 09/13/24 18:33 Primary Care Provider: Greg López Admitting Provider: Gael Prescott Attending physician on admission: Gael Prescott Condition: Stable Hospitalist MIPS Heart Failure (Exclusion) Patient has history of Heart Transplant or Left Ventricular Assistive Device?: No IF YES, STOP HERE Heart Failure (Qualifier) Patient has current or prior documentation of LVEF less than or equal to 40%, or mod/servere depressed LVSF?: Yes IF NO, STOP HERE If Yes, Heart Failure (Qualifier) Patient was prescribed or already taking an Angiotensin-Converting Enzyme (MONA) Inhibitor, or Antiotensin Receptor Frida (ARB): No Patient was prescribed or already taking bisoprolol, carvedilol, or sustained release metoprolol succinate: Yes If Medications not prescribed/taking Reason patient not prescribed/taking MONA or ARB: Medical reasons: allergy, intolerance, contraindication or other
[2024-09-17 15:47] VITALS: BP 105/65; PULSE 88; RESP 16; TEMP 36.3; O2SAT 98
[2024-09-17 16:28] LABS: Glucose Point of Care 306 mg/dl (65-105)
[2024-09-17] MEDS: metFORMIN HCL 250 MG TABLET PO (17:05)
[2024-09-17] MEDS: INSULIN ASPART (*BKC) 100 UNITS/ML 14 UNITS SUB-Q (17:05)
--- NOTE | 2024-09-22 09:14 | PC.NURSE ---
Spoke with patient yesterday regarding being unable to see PCP until 12/18. Will need meds in September. Called PCP's office and pt now has appt 10/20/24. Will be close on having enough medication till 10/20. Looking into ways to get the needed meds till see pcp. Pt. states understanding and agreement.
== END 2024-09-17 17:35 | disposition home health service (06) | DRG 637 ==
LOC: ANHED 18:32 → ANHICU 18:50 → ANHIMU 09-14 14:47 → ANH3MEDSUR 09-17 15:52 → ANHIMU 09-20 09:54
PROVIDERS: Internal Medicine; Internal Medicine Nephrology; Physician Assistant; Registered Nurse; Admitting Provider Internal Medicine; Emergency Provider Emergency Medicine; PCP Internal Medicine; Visit Provider Internal Medicine
DX: E11.65 Type 2 diabetes mellitus with hyperglycemia (principal); E11.10 Type 2 diabetes mellitus with ketoacidosis without coma; B37.0 Candidal stomatitis; B37.81 Candidal esophagitis; I42.0 Dilated cardiomyopathy; N17.9 Acute kidney failure, unspecified; I50.42 Chronic combined systolic (congestive) and diastolic (congestive) heart failure; E87.0 Hyperosmolality and hypernatremia; I11.0 Hypertensive heart disease with heart failure; R13.10 Dysphagia, unspecified; E86.0 Dehydration; E87.5 Hyperkalemia; D35.02 Benign neoplasm of left adrenal gland; Z20.822 Contact with and (suspected) exposure to COVID-19; E78.5 Hyperlipidemia, unspecified; Z87.11 Personal history of peptic ulcer disease; Z87.891 Personal history of nicotine dependence; Z79.82 Long term (current) use of aspirin
CPT/HCPCS: 36415; 70490; 71250; 76775; 80048; 80053; 80069; 81003; 81050; 82010; 82550; 82570; 82803; 82948; 83036; 83605; 83735; 83880; 84100; 84145; 84156; 84300; 84443; 84484; 84540; 85025; 85027; 85610; 85730; 85999; 87040; 87081; 87426; 87637; 87641; 87651; 87804; 87880; 93005; 96360; 99285; A9270; J1644; J1815; J2405; J3480; J7030; J7120; P9047

== ENCOUNTER 2024-12-08 08:16 | Outpatient (CLI) | payer MEDICARE, SELFPAY ==
[2024-12-08 15:08] LABS: Basophils Absolute Auto 0.1 K/mm3 (0.0-0.1); Eosinophils Absolute Auto 0.2 K/mm3 (0-0.3); Eosinophils Percent Auto 2.2 % (0-4.4); Hematocrit 46.6 % (42.0-52.0); Immature Granulocyte Absolute 0.05 K/mm3 (0.00-0.031); Immature Granulocyte Percent A 0.6 % (0-0.5); Lymphocytes Absolute Auto 2.35 K/mm3 (0.9-3.2); Lymphocytes Percent Auto 27.1 % (18.3-44.2); Mean Corpuscular HGB Conc 32.2 g/dl (32-36); Mean Corpuscular Hemoglobin 30.3 pg (26-34); Mean Corpuscular Volume 94.1 fl (80-100); Mean Platelet Volume 9.6 fl (7.4-10.4); Monocytes Absolute Auto 0.9 K/mm3 (0.1-0.6); Monocytes Percent Auto 10.1 % (2.6-8.5); Neutrophils Absolute Auto 5.1 K/mm3 (1.3-6.7); Platelet Count Result 363 k/mm3 (150-375); Red Blood Count 4.95 M/mm3 (4.6-6.20); Red Cell Distribution Width 13.6 % (11.5-14.5); White Blood Count 8.7 K/mm3 (4.5-10.0)
[2024-12-08 15:48] LABS: Creatinine Urine 94.2 mg/dL
[2024-12-08 16:10] LABS: Microalbumin Urine Random < 6.0 mg/L (0-16.7)
[2024-12-08 16:11] LABS: MALB Creatinine Ratio < 6.4 mg/g (0-30)
[2024-12-08 16:33] LABS: Alanine Aminotransferase 23 U/L (6-50); Albumin Level 4.5 g/dL (3.5-5.1); Alkaline Phosphatase 48 U/L (38-126); Anion Gap 8 mmol/L (4-12); Aspartate Amino Transferase 53 U/L (17-59); Bilirubin,Total 0.9 mg/dL (0.2-1.3); Blood Urea Nitrogen 14 mg/dL (9-20); Calcium 9.5 mg/dL (8.4-10.2); Carbon Dioxide 32 mmol/L (22-30); Chloride 100 mmol/L (98-107); Cholesterol 127 mg/dL (0-200); Estimated Glomerular Filt Rate > 60; Glucose 76 mg/dL (65-110); HDL Direct 46 mg/dL; Potassium 3.9 mmol/L (3.4-5.0); Sodium 140 mmol/L (137-145); Triglycerides 70 mg/dL (<150)
[2024-12-08 16:56] LABS: LDL Cholesterol Direct 54 mg/dL
[2024-12-08 17:38] LABS: Folic Acid 8.4 ng/mL (2.76->20)
[2024-12-08 19:54] LABS: Hemoglobin A1C 6.7 % (<5.7)
== END 2024-12-08 08:17 | disposition home or self-care (01) ==
LOC: ANHGOSHLAB 08:17
PROVIDERS: PCP Internal Medicine; Visit Provider Internal Medicine
DX: I10 Essential (primary) hypertension (principal); I50.22 Chronic systolic (congestive) heart failure; I42.9 Cardiomyopathy, unspecified; E11.9 Type 2 diabetes mellitus without complications; D64.9 Anemia, unspecified
CPT/HCPCS: 36415; 80053; 80061; 82043; 82607; 82728; 82746; 83036; 85025

== ENCOUNTER 2025-05-16 12:32 | Outpatient (CLI) | payer MEDICARE, SELFPAY ==
--- NOTE | ~2025-05-16 | XR_ITS ---
EXAM/ PROCEDURE: XR heel LT min 2V - 05/16/2025 12:42 CDT HISTORY: 69 years old Male with Stepped on broken glass 2 mos ago, continues with Lt heel pa COMPARISON: None available TECHNIQUE: Three view(s) FINDINGS/ IMPRESSION: There are no fractures or dislocations.Joint spaces are within normal limits. No radiopaque foreign b sean seen. Reviewed, dictated and finalized at location A.
== END 2025-05-16 12:33 | disposition home or self-care (01) ==
LOC: GOSHIMG 12:32
PROVIDERS: PCP Internal Medicine; Visit Provider Internal Medicine
DX: S90.852A Superficial foreign body, left foot, initial encounter (principal); G89.29 Other chronic pain; X58.XXXA Exposure to other specified factors, initial encounter
CPT/HCPCS: 73650

== ENCOUNTER 2025-11-01 13:50 | Outpatient (CLI) | payer MEDICARE, SELFPAY ==
[2025-11-01 19:31] LABS: Hematocrit 44.2 % (42.0-52.0); Hemoglobin 14.7 g/dL (14.0-18.0); Immature Granulocyte Percent A 0.4 % (0-0.5); Lymphocytes Absolute Auto 2.98 K/mm3 (0.9-3.2); Mean Corpuscular HGB Conc 33.3 g/dl (32-36); Mean Corpuscular Hemoglobin 30.3 pg (26-34); Mean Corpuscular Volume 91.1 fl (80-100); Nucleated Red Blood Cells Absolute Auto 0.000 K/mm3 (0.0-0.012); Nucleated Red Blood Cells Perc 0.0 % (0.0-0.2); Platelet Count Result 378 k/mm3 (150-375); Red Blood Count 4.85 M/mm3 (4.6-6.20); White Blood Count 9.9 K/mm3 (4.5-10.0)
[2025-11-01 19:55] LABS: Hemoglobin A1C 5.8 % (<5.7)
[2025-11-01 19:59] LABS: Alanine Aminotransferase 26 U/L (6-50); Albumin Level 4.6 g/dL (3.5-5.1); Alkaline Phosphatase 47 U/L (38-126); Anion Gap 9 mmol/L (4-12); Aspartate Amino Transferase 33 U/L (17-59); Bilirubin,Total 0.8 mg/dL (0.2-1.3); Blood Urea Nitrogen 18 mg/dL (9-20); Calcium 9.8 mg/dL (8.4-10.2); Carbon Dioxide 26 mmol/L (22-30); Chloride 102 mmol/L (98-107); Estimated Glomerular Filt Rate > 60; Glucose 114 mg/dL (65-110); Potassium 3.9 mmol/L (3.4-5.0); Sodium 137 mmol/L (137-145); Total Protein 8.1 g/dL (6.3-8.2)
[2025-11-01 20:30] LABS: Prostate Specific Antigen 0.9 ng/mL (< OR = 4.0)
== END 2025-11-01 13:51 | disposition home or self-care (01) ==
LOC: ANHGOSHLAB 13:51
PROVIDERS: PCP Internal Medicine; Visit Provider Internal Medicine
DX: D64.9 Anemia, unspecified (principal); E11.9 Type 2 diabetes mellitus without complications; Z12.5 Encounter for screening for malignant neoplasm of prostate; Z79.4 Long term (current) use of insulin; I10 Essential (primary) hypertension
CPT/HCPCS: 36415; 80053; 82172; 83036; 84153; 85025; G0103